=== PATIENT | female | born 1965 | race Caucasian/White ===

== ENCOUNTER 2016-04-01 18:05 | Inpatient (IN) | payer MEDICAID ==
[2016-04-01] MEDS ORDERED: IPRATROPIUM/ALBUTEROL 3 ML DEYVIAL IH ONE (18:13)
[2016-04-01] MEDS ORDERED: methylPREDNISolone SOD SUCC 125 MG/2 ML VIAL IVP ONE (18:13)
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
[2016-04-01] MEDS ORDERED: NS 500 ML IV ONE (19:08)
[2016-04-01 19:14] LABS: % IMMATURE GRANULYOCYTES 0.2 % (0.0-1.1); ABSOLUTE IMMATURE GRANULOCYTES 0.03 10^3/uL (0.00-0.10); ADD DIFF? NO; ADD MORPH? NO; ADD SCAN? NO; ATYPICAL LYMPHOCYTE FLAG 10 (0-99); FRAGMENT RBC FLAG 0 (0-99); HEMATOCRIT 36.6 % (38.0-47.0); HEMOGLOBIN 12.2 g/dL (12.6-16.3); LEFT SHIFT FLG 0 (0-99); LIPEMIA HEMOLYSIS FLAG 80 (0-99); MEAN CELL HEMOGLOBIN 30.4 pg (27.9-34.1); MEAN CELL HEMOGLOBIN CONCENTR. 33.3 g/dL (32.4-36.7); MEAN CELL VOLUME 91.3 fL (81.5-99.8); MEAN PLATELET VOLUME 11.1 fL (8.7-11.7); PLATELET CLUMPS FLAG 0 (0-99); PLATELET COUNT 307 10^3/uL (150-400); RED BLOOD CELL COUNT 4.01 10^6/uL (4.18-5.33); RED CELL DISTRIBUTION WIDTH 13.7 % (11.5-15.2)
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
[2016-04-01 19:19] LABS: ANION GAP 14 mEq/L (8-16); CALCIUM 9.2 mg/dL (8.5-10.4); CARBON DIOXIDE 21 mEq/l (22-31); CHLORIDE 105 mEq/L (97-110); CREATININE 0.5 mg/dL (0.6-1.0); GLOMERULAR FILTRATION RATE > 60; GLUCOSE 92 mg/dL (70-100); POTASSIUM 3.4 mEq/L (3.5-5.2); SODIUM 140 mEq/L (134-144)
[2016-04-01 19:31] LABS: BILIRUBIN,TOTAL 0.4 mg/dL (0.1-1.4)
[2016-04-01] MEDS ORDERED: ACETAMN/DIPHENHYDRAMINE 500/25MG TAB PO PRN (20:23)
[2016-04-01] MEDS ORDERED: CAFFEINE PO PRN (20:23)
[2016-04-01] MEDS ORDERED: ASPIRIN PO PRN (20:23)
[2016-04-01] MEDS ORDERED: ZOLPIDEM TARTRATE 5 MG TAB PO PRN (20:24)
[2016-04-01] MEDS ORDERED: ONDANSETRON 4 MG/2 ML VIAL IVP PRN (20:24)
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
[2016-04-01] MEDS: D5W 1/2 NS W/ 20 KCl/L 1,000 ML IV SCH (21:20)
[2016-04-01] MEDS: clonazePAM 0.5 MG TAB PO PRN (22:01)
[2016-04-01] MEDS: PROMETHAZINE HCL 25 MG/ML INJ IVP PRN (22:21)
[2016-04-01] MEDS: IPRATROPIUM/ALBUTEROL 3 ML DEYVIAL IH SCH (22:25)
[2016-04-02] MEDS: IPRATROPIUM/ALBUTEROL 3 ML DEYVIAL IH SCH ×4 (05:10→21:35)
[2016-04-02] MEDS: ACETAMINOPHEN 325 MG TAB PO PRN ×2 (06:26→21:38)
[2016-04-02] MEDS: clonazePAM 0.5 MG TAB PO PRN ×2 (06:31→19:43)
[2016-04-02] MEDS: predniSONE 20 MG TAB PO SCH (08:02)
[2016-04-02] MEDS: PROMETHAZINE HCL 25 MG/ML INJ IVP PRN ×2 (08:15→19:49)
[2016-04-02] MEDS: D5W 1/2 NS W/ 20 KCl/L 1,000 ML IV SCH (08:18)
[2016-04-02 08:24] LABS: % IMMATURE GRANULYOCYTES 0.6 % (0.0-1.1); ABSOLUTE IMMATURE GRANULOCYTES 0.05 10^3/uL (0.00-0.10); ADD DIFF? NO; ADD MORPH? NO; ADD SCAN? NO; ATYPICAL LYMPHOCYTE FLAG 0 (0-99); FRAGMENT RBC FLAG 0 (0-99); HEMATOCRIT 34.5 % (38.0-47.0); HEMOGLOBIN 11.5 g/dL (12.6-16.3); LEFT SHIFT FLG 10 (0-99); LIPEMIA HEMOLYSIS FLAG 80 (0-99); MEAN CELL HEMOGLOBIN 30.3 pg (27.9-34.1); MEAN CELL HEMOGLOBIN CONCENTR. 33.3 g/dL (32.4-36.7); MEAN CELL VOLUME 90.8 fL (81.5-99.8); MEAN PLATELET VOLUME 10.4 fL (8.7-11.7); PLATELET CLUMPS FLAG 0 (0-99); PLATELET COUNT 276 10^3/uL (150-400); RED CELL DISTRIBUTION WIDTH 13.7 % (11.5-15.2)
[2016-04-02 08:44] LABS: ANION GAP 10 mEq/L (8-16); CARBON DIOXIDE 22 mEq/l (22-31); CHLORIDE 110 mEq/L (97-110); CREATININE 0.4 mg/dL (0.6-1.0); GLOMERULAR FILTRATION RATE > 60; GLUCOSE 181 mg/dL (70-100); POTASSIUM 3.8 mEq/L (3.5-5.2); SODIUM 142 mEq/L (134-144)
[2016-04-02] MEDS: IBUPROFEN 200 MG TAB PO PRN ×2 (12:38→18:40)
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
[2016-04-02] MEDS: METHOCARBAMOL 750 MG TAB PO PRN (16:58)
[2016-04-03] MEDS: METHOCARBAMOL 750 MG TAB PO PRN ×4 (01:28→22:07)
[2016-04-03] MEDS: IPRATROPIUM/ALBUTEROL 3 ML DEYVIAL IH SCH ×4 (05:37→21:52)
[2016-04-03] MEDS: predniSONE 20 MG TAB PO SCH (08:50)
[2016-04-03] MEDS: clonazePAM 0.5 MG TAB PO PRN ×2 (08:50→22:08)
[2016-04-03] MEDS ORDERED: ONDANSETRON DISINTEGRATING 4 MG TAB PO PRN (10:00)
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
[2016-04-03] MEDS: IBUPROFEN 200 MG TAB PO PRN ×2 (11:05→22:07)
[2016-04-03] MEDS: PANTOPRAZOLE SODIUM 40 MG TAB PO SCH (11:12)
[2016-04-03] MEDS: ACETAMINOPHEN 325 MG TAB PO PRN (13:37)
[2016-04-04] MEDS ORDERED: IBUPROFEN 200 MG TAB PO SCH
[2016-04-04] MEDS ORDERED: predniSONE 20 MG TAB PO SCH
[2016-04-04] MEDS ORDERED: METHOCARBAMOL 750 MG TAB PO SCH
[2016-04-04] MEDS ORDERED: ACETAMINOPHEN 325 MG TAB PO SCH
[2016-04-04] MEDS: IPRATROPIUM/ALBUTEROL 3 ML DEYVIAL IH SCH ×2 (05:26→11:05)
[2016-04-04] MEDS: PANTOPRAZOLE SODIUM 40 MG TAB PO SCH (08:29)
[2016-04-04] MEDS: predniSONE 20 MG TAB PO SCH (08:30)
[2016-04-04] MEDS: clonazePAM 0.5 MG TAB PO PRN ×2 (08:30→17:04)
[2016-04-04] MEDS: METHOCARBAMOL 750 MG TAB PO PRN ×2 (08:30→13:11)
[2016-04-04] MEDS: ACETAMINOPHEN 325 MG TAB PO PRN (08:37)
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
[2016-04-04] MEDS: IBUPROFEN 200 MG TAB PO PRN (13:11)
[2016-04-04 14:47] VITALS: RESP 18
[2016-04-04 15:39] VITALS: BP 107/61; PULSE 84; TEMP 98.4
[2016-04-04 16:33] VITALS: O2SAT 92
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
== END 2016-04-04 17:13 | disposition home or self-care (01) | DRG 193 ==
LOC: F3E 20:35
PROVIDERS: ADMIT Internal Medicine; ATTEND Internal Medicine
DX: J18.8 Other pneumonia, unspecified organism (principal); J96.01 Acute respiratory failure with hypoxia; J44.1 Chronic obstructive pulmonary disease with (acute) exacerbation; K21.9 Gastro-esophageal reflux disease without esophagitis; E87.6 Hypokalemia; F17.200 Nicotine dependence, unspecified, uncomplicated; R29.818 Other symptoms and signs involving the nervous system; Z59.0 Homelessness
CPT/HCPCS: 92523-GN; 96365; 97116-GP; 97161-GP; 97165-GO; 97535-GO; J1956; J2550; J7512

== ENCOUNTER 2016-04-06 02:03 | Emergency (ER) | payer MEDICAID ==
[2016-04-06 02:20] VITALS: BP 160/84; PULSE 82; RESP 18; TEMP 98.4; O2SAT 94
[2016-04-06] MEDS ORDERED: OXYCODONE/APAP 5/325 TAB PO ONE (02:20)
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
[2016-04-06] MEDS ORDERED: HYDROCOD/APAP 5/325 PREPACK#6 BTL TAKEHOME ONE (02:46)
== END 2016-04-06 03:08 | disposition home or self-care (01) ==
LOC: EDUNIT#
DX: J20.9 Acute bronchitis, unspecified (principal); J18.9 Pneumonia, unspecified organism; Z79.82 Long term (current) use of aspirin; Z87.891 Personal history of nicotine dependence

== ENCOUNTER 2016-04-07 18:38 | Observation (INO) | payer MEDICAID ==
--- NOTE | 2016-04-07 20:06 | EDPHY ---
H & P Time Seen by Provider: 04/07/16 19:54 HPI/ROS: Chief complaint. Shortness of breath HPI. 42-year-old female recently admitted for bilateral pneumonia on April 01. Negative flu. Start on epic by accepts and because of COPD given IV Solu -Medrol and started on prednisone. She was discharged on April 05 in improved condition. She was seen in the emergency department yesterday because of coughing and pain from her umbilical hernia which was easily reduced. She continues to cough. She has sense of shortness of breath. No fever. Some chest pain with cough. ROS Constitutional. no fever/chills, no weakness Eyes. no problems with vision ENT. no sore throat, no nasal drainage Cardiovascular. Chest pain with cough Respiratory. Shortness of breath and cough Abdominal. Pain from periumbilical hernia . no problems urinating MS. no calf pain/swelling, no neck/back pain, no joint pain Skin. no rash Lymph. no swollen glands Neuro. no headache, no dizziness, no difficulty walking or with speech Past Medical/Surgical History: Past medical history seen for GERD, memory loss, traumatic brain injury, chronic bronchitis, abdominal hernia, COPD, anxiety Social History: Single, no alcohol, former smoker Smoking Status: Former smoker Physical Exam: General Appearance: Alert well-developed female mild distress vital signs stable but significant for initial O2 saturation 88% on room air Eyes: Pupils equal and round no pallor or injection. ENT, Mouth: Mucous membranes are moist. Respiratory: No retractions. Mild bilateral rhonchi. Cardiovascular: Regular rate and rhythm. Gastrointestinal: Abdomen is soft with easily reducible periumbilical hernia. No evidence for incarceration Neurological: Awake and alert, sensory and motor exams grossly normal. Skin: Warm and dry, no rashes. Musculoskeletal: Neck is supple nontender. Extremities symmetrical, full range of motion. Psychiatric: Patient is oriented X 3, there is no agitation. Constitutional: Initial Vital Signs Temperature (C) 36.7 C 04/07/16 18:43 Heart Rate 87 04/07/16 18:43 Respiratory Rate 24 H 04/07/16 18:43 Blood Pressure 137/99 H 04/07/16 18:43 O2 Sat (%) 88 L 04/07/16 18:43 O2 Delivery Mode Room Air O2 (L/minute) 2 Allergies/Adverse Reactions: droperidol [From Inapsine] Allergy (Severe, Verified 04/01/16 20:04) SEIZURES haloperidol [From Haldol] Allergy (Severe, Verified 04/01/16 20:04) SEIZURES haloperidol lactate [From Haldol] Allergy (Severe, Verified 04/01/16 20:04) SEIZURES Home Medications: Medication Instructions Recorded Acetamn/Diphenhydramine 500/25 1 each PO HS PRN 04/01/16 [Tylenol PM (*)] Albuterol [Proventil Neb] 3 ml IH QID PRN 04/01/16 Aspirin/Caffeine [Bc Powder Packet] 1 each PO DAILY PRN 04/01/16 clonazePAM [Klonopin (*)] 0.5 mg PO BID PRN 04/01/16 Acetaminophen [Tylenol 325mg (*)] 650 mg PO Q4HRS PRN #30 tab 04/04/16 Ibuprofen [Motrin (*)] 400 mg PO Q6HRS PRN #30 tab 04/04/16 Methocarbamol [Robaxin 750 mg (*)] 750 mg PO TID PRN #20 tab 04/04/16 levOFLOXACIN [levAQUIN (*)] 750 mg PO DAILY AT 10AM #4 tab 04/04/16 predniSONE 20 mg PO DAILY #6 tablet 04/04/16 Medical Decision Making - Diagnostics EKG Interpretation: EKG interpreted by me shows normal sinus rhythm with normal interval. There is left anterior fascicular block and left axis deviation. QRS is otherwise normal. There is no significant ST elevation or depression. The rate is 84 Imaging: Chest x-ray interpreted by me shows improved bilateral pneumonia Procedures: DuoNeb updraft, oxygen, monitor ED Course/Re-evaluation: On re-evaluation patient feels like she is breathing better however still coughing and somewhat jittery. Patient and I discussed x-ray findings as well as lab findings. We discussed treatment plan and recommendation for admission. She expresses understanding and agreement. The patient lives [facility] and has recently moved to [place] does not have a regular physician or good support system I consulted and discussed patient's case with hospitalist who agrees to the admission Differential Diagnosis: Continuing pneumonia. I considered influenza that she has had negative influenza swab. Patient is hypoxic with bilateral pneumonia. Plan admission - Data Points Laboratory Results: Laboratory Results 04/07/16 19:00 04/07/16 19:00 04/07/16 04/07/16 19:00 19:00 WBC 15.89 10^3/uL H 10^3/uL (3.80-9.50) RBC 4.26 10^6/uL 10^6/uL (4.18-5.33) Hgb 13.3 g/dL g/dL (12.6-16.3) Hct 40.8 % % (38.0-47.0) MCV 95.8 fL fL (81.5-99.8) MCH 31.2 pg pg (27.9-34.1) MCHC 32.6 g/dL g/dL (32.4-36.7) RDW 13.4 % % (11.5-15.2) Plt Count 477 10^3/uL H 10^3/uL (150-400) MPV 10.8 fL fL (8.7-11.7) Neut % (Auto) 77.4 % H % (39.3-74.2) Lymph % (Auto) 18.9 % % (15.0-45.0) [place] % (Auto) 2.8 % L % (4.5-13.0) Eos % (Auto) 0.1 % L % (0.6-7.6) Baso % (Auto) 0.2 % L % (0.3-1.7) Nucleat RBC Rel Count 0.0 % % (0.0-0.2) Absolute Neuts (auto) 12.31 10^3/uL H 10^3/uL (1.70-6.50) Absolute Lymphs (auto) 3.00 10^3/uL 10^3/uL (1.00-3.00) Absolute Monos (auto) 0.44 10^3/uL 10^3/uL (0.30-0.80) Absolute Eos (auto) 0.02 10^3/uL L 10^3/uL (0.03-0.40) Absolute Basos (auto) 0.03 10^3/uL 10^3/uL (0.02-0.10) Absolute Nucleated RBC 0.00 10^3/uL 10^3/uL (0-0.01) Immature Gran % 0.6 % % (0.0-1.1) Immature Gran # 0.09 10^3/uL 10^3/uL (0.00-0.10) Sodium 142 mEq/L mEq/L (134-144) Potassium 4.3 mEq/L mEq/L (3.5-5.2) Chloride 104 mEq/L mEq/L (97-110) Carbon Dioxide 24 mEq/l mEq/l (22-31) Anion Gap 14 mEq/L mEq/L (8-16) BUN 22 mg/dL mg/dL (7-23) Creatinine 0.6 mg/dL mg/dL (0.6-1.0) Estimated GFR > 60 Glucose 101 mg/dL H mg/dL (70-100) Calcium 9.7 mg/dL mg/dL (8.5-10.4) Troponin I < 0.012 ng/mL ng/mL (0-0.034) Medications Given: Discontinued Medications Albuterol/Ipratropium (Duoneb) 3 ml IH EDNOW ONE Stop: 04/07/16 20:11 Last Admin: 04/07/16 20:33 Dose: 3 ml Departure - Departure Disposition: [facility] Inpatient Acute Clinical Impression: Hypoxia Pneumonia Qualifiers: Pneumonia type: due to unspecified organism Laterality: bilateral Lung location : lower lobe of lung Qualified Code(s): J18.9 - Pneumonia, unspecified organism Condition: Fair Referrals: [facility]WO[facility] [Other] - As per Instructions
[2016-04-07] MEDS ORDERED: IPRATROPIUM/ALBUTEROL 3 ML DEYVIAL IH ONE (20:10)
[2016-04-07 20:16] LABS: % IMMATURE GRANULYOCYTES 0.6 % (0.0-1.1); ABSOLUTE IMMATURE GRANULOCYTES 0.09 10^3/uL (0.00-0.10); ADD DIFF? NO; ADD MORPH? NO; ADD SCAN? NO; ATYPICAL LYMPHOCYTE FLAG 10 (0-99); FRAGMENT RBC FLAG 0 (0-99); HEMATOCRIT 40.8 % (38.0-47.0); HEMOGLOBIN 13.3 g/dL (12.6-16.3); LEFT SHIFT FLG 0 (0-99); LIPEMIA HEMOLYSIS FLAG 80 (0-99); MEAN CELL HEMOGLOBIN 31.2 pg (27.9-34.1); MEAN CELL HEMOGLOBIN CONCENTR. 32.6 g/dL (32.4-36.7); MEAN CELL VOLUME 95.8 fL (81.5-99.8); MEAN PLATELET VOLUME 10.8 fL (8.7-11.7); PLATELET CLUMPS FLAG 0 (0-99); PLATELET COUNT 477 10^3/uL (150-400); RED BLOOD CELL COUNT 4.26 10^6/uL (4.18-5.33); RED CELL DISTRIBUTION WIDTH 13.4 % (11.5-15.2)
[2016-04-07 20:24] LABS: ANION GAP 14 mEq/L (8-16); CALCIUM 9.7 mg/dL (8.5-10.4); CARBON DIOXIDE 24 mEq/l (22-31); CHLORIDE 104 mEq/L (97-110); CREATININE 0.6 mg/dL (0.6-1.0); GLOMERULAR FILTRATION RATE > 60; GLUCOSE 101 mg/dL (70-100); POTASSIUM 4.3 mEq/L (3.5-5.2); SODIUM 142 mEq/L (134-144)
[2016-04-07 20:35] LABS: TROPONIN I < 0.012 ng/mL (0-0.034)
--- NOTE | 2016-04-07 20:38 | CPEKG ---
Heart Rate: 84 RR Interval: 714 P-R Interval: 172 QRSD Interval: 92 QT Interval: 400 QTC Interval: 473 P [place]: -14 QRS [place]: -46 T Wave [place]: 4 EKG Severity - ABNORMAL ECG - EKG Impression: SINUS RHYTHM EKG Impression: LEFT ANTERIOR FASCICULAR BLOCK EKG Impression: BORDERLINE R WAVE PROGRESSION, ANTERIOR LEADS Electronically Signed By: Amaury Mcadams 07-Apr-2016 22:25:41
[2016-04-07] MEDS ORDERED: ACETAMINOPHEN 325 MG TAB PO PRN (22:38)
[2016-04-07] MEDS ORDERED: ONDANSETRON 4 MG/2 ML VIAL IVP PRN (22:38)
[2016-04-07] MEDS ORDERED: ONDANSETRON DISINTEGRATING 4 MG TAB PO PRN (22:38)
[2016-04-07] MEDS ORDERED: IPRATROPIUM/ALBUTEROL 3 ML DEYVIAL IH PRN (22:41)
[2016-04-07] MEDS ORDERED: TEMAZEPAM 15 MG CAP PO PRN (22:42)
--- NOTE | 2016-04-07 23:03 | PDGENHP ---
History and Physical - Chief Complaint cough - History of Present Illness Patient is a 50-year old female with COPD/chronic bronchitis, h/o TBI, anxiety disorder and GERD who presents to the ED with complaint of cough, shortness of breath and pleuritic chest pain. Patient was recently admitted (04/01-04/05) for COPD exacerbation and community acquired pneumonia, reports compliance with her discharge medications which included levofloxacin and prednisone. Despite this compliance, patient reports continued cough and dyspnea and now also describes a left-sided chest pain, pleuritic in nature. She states she can only walk steps before having to stop due to shortness of breath. Denies any recurrent fevers/chills. She came to the ED for her continued symptoms on 04/06, was given Percocet for her pleuritic pain and discharged back to her senior care. She presents again today with persistent symptoms. Denies any palpitations, headache , dizziness, nausea,vomiting, diarrhea or dysuria. On arrival to the ED, patient was afebrile and hemodynamcally stable, although slightly hypoxic on room air. CXR revealed persistent bilateral interstitial infiltrates. Labs also revealed new leukocytosis, negative troponin. EKG was unremarkable. She was given nebs and admitted to the hospitalist service for further management. History Information - Allergies/Home Medication List Allergies/Adverse Reactions: droperidol [From Inapsine] Allergy (Severe, Verified 04/01/16 20:04) SEIZURES haloperidol [From Haldol] Allergy (Severe, Verified 04/01/16 20:04) SEIZURES haloperidol lactate [From Haldol] Allergy (Severe, Verified 04/01/16 20:04) SEIZURES Home Medications: Acetamn/Diphenhydramine 500/25 [Tylenol PM (*)] 1 each PO HS PRN 04/01/16 [Last Taken Unknown] Albuterol [Proventil Neb] 3 ml IH QID PRN 04/01/16 [Last Taken 04/07/16] Aspirin/Caffeine [Bc Powder Packet] 1 each PO DAILY PRN 04/01/16 [Last Taken ] Albuterol [Proventil Inhaler HFA (*)] 1 - 2 puffs IH Q4H PRN 04/07/16 [Last Taken 04/07/16] I have personally reviewed and updated: family history, medical history, social history, surgical history - Past Medical History Additional medical history: COPD. GERD/hiatal hernia. 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 anxiety disorder - Surgical History Additional surgical history: partial hysterectomy. cholecystectomy. lipoma resection - Family History Positive for: non-pertinent - Social History Smoking Status: Former smoker (reports she quit after recent hospitalization; formerly 1/2-1PPD x 15 years) Alcohol Use: None Drug Use: None Additional social history: Patient is originally from [place], left there in February and has been homeless/travelling since that time. She has remained in the [facility] area since end of Feb/early March, now resides in [facility]. She reports having siblings and children in the [place] area. Review of Systems ROS: 10pt was reviewed & negative except for what was stated in HPI & below Physical Exam Temp Pulse Resp BP Pulse Ox 36.6 C 75 20 123/78 H 98 04/07/16 21:47 04/07/16 21:56 04/07/16 21:56 04/07/16 21:56 04/07/16 21:56 O2 (L/minute) 2 Constitutional: no apparent distress, appears nourished, not in pain, obese Eyes: PERRL, anicteric sclera, EOMI Ears, Nose, Mouth, Throat: moist mucous membranes, hearing normal, ears appear normal, no oral mucosal ulcers Cardiovascular: regular rate and rhythym, no murmur, rub, or gallop, pulses symmetric bilaterally, No JVD, No edema Peripheral Pulses: 2+: dorsalis-pedis (R), dorsalis-pedis (L) Respiratory: no respiratory distress, no rales or rhonchi, expiratory wheeze ( faint diffuse expiratory wheezing) Gastrointestinal: normoactive bowel sounds, soft, non-tender abdomen, no palpable masses, No guarding, No rebound Genitourinary: no bladder fullness, no bladder tenderness Skin: warm, normal color, no rashes or abrasions, no fluctuance, no induration, No mottled Musculoskeletal: full muscle strength, no muscle tenderness, normal joint ROM, no joint effusions Neurologic: AAOx3, sensation intact bilaterally, CN II-XII Intact, No weakness, No numbness Psychiatric: not encephalopathic, thought process linear, anxious Lab Data & Imaging Review 04/07/16 19:00 04/07/16 19:00 WBC 15.89 10^3/uL (3.80-9.50) H 04/07/16 19:00 RBC 4.26 10^6/uL (4.18-5.33) 04/07/16 19:00 Hgb 13.3 g/dL (12.6-16.3) 04/07/16 19:00 Hct 40.8 % (38.0-47.0) 04/07/16 19:00 MCV 95.8 fL (81.5-99.8) 04/07/16 19:00 MCH 31.2 pg (27.9-34.1) 04/07/16 19:00 MCHC 32.6 g/dL (32.4-36.7) 04/07/16 19:00 RDW 13.4 % (11.5-15.2) 04/07/16 19:00 Plt Count 477 10^3/uL (150-400) H 04/07/16 19:00 MPV 10.8 fL (8.7-11.7) 04/07/16 19:00 Neut % (Auto) 77.4 % (39.3-74.2) H 04/07/16 19:00 Lymph % (Auto) 18.9 % (15.0-45.0) 04/07/16 19:00 [place] % (Auto) 2.8 % (4.5-13.0) L 04/07/16 19:00 Eos % (Auto) 0.1 % (0.6-7.6) L 04/07/16 19:00 Baso % (Auto) 0.2 % (0.3-1.7) L 04/07/16 19:00 Nucleat RBC Rel Count 0.0 % (0.0-0.2) 04/07/16 19:00 Absolute Neuts (auto) 12.31 10^3/uL (1.70-6.50) H 04/07/16 19:00 Absolute Lymphs (auto) 3.00 10^3/uL (1.00-3.00) 04/07/16 19:00 Absolute Monos (auto) 0.44 10^3/uL (0.30-0.80) 04/07/16 19:00 Absolute Eos (auto) 0.02 10^3/uL (0.03-0.40) L 04/07/16 19:00 Absolute Basos (auto) 0.03 10^3/uL (0.02-0.10) 04/07/16 19:00 Absolute Nucleated RBC 0.00 10^3/uL (0-0.01) 04/07/16 19:00 Immature Gran % 0.6 % (0.0-1.1) 04/07/16 19:00 Immature Gran # 0.09 10^3/uL (0.00-0.10) 04/07/16 19:00 Sodium 142 mEq/L (134-144) 04/07/16 19:00 Potassium 4.3 mEq/L (3.5-5.2) 04/07/16 19:00 Chloride 104 mEq/L (97-110) 04/07/16 19:00 Carbon Dioxide 24 mEq/l (22-31) 04/07/16 19:00 Anion Gap 14 mEq/L (8-16) 04/07/16 19:00 BUN 22 mg/dL (7-23) 04/07/16 19:00 Creatinine 0.6 mg/dL (0.6-1.0) 04/07/16 19:00 Estimated GFR > 60 04/07/16 19:00 Glucose 101 mg/dL (70-100) H 04/07/16 19:00 Calcium 9.7 mg/dL (8.5-10.4) 04/07/16 19:00 Troponin I < 0.012 ng/mL (0-0.034) 04/07/16 19:00 Visualized and Interpreted Chest x-ray results: Yes Chest X-Ray results: other (b/l interstitial infiltrates, unchanged from prior cxr) Visualized and Interpreted EKG results: Yes EKG Interpretation: Positive for: normal sinsus rhythm (poor R wave progression) Assessment & Plan Assessment: Patient is a [id number]-female with chronic bronchitis, anxiety disorder, GERD and recent admission for community acquired pneumonia who presents to the ED with persistent cough and pleuritic chest pain despite compliance with outpatient antibiotic and steroids. ED evaluation reveals mild hypoxia and new leukocytosis, with persistent infiltrates on CXR. Plan: # acute hypoxic respiratory failure, COPD Likely due to persistent community acquired pneumonia and exacerbation of her chronic bronchitis/COPD. She denies a history of chronic respiratory failure. Given recent hospitalization and tachycardia, tachypenia present on presentation , must also consider pulmonary embolism, cardiomyopathy. Will check d-dimer and TTE. Will also switch antibiotics, continue nebs and prednisone. # leukocytosis, thrombocytosis Could be reactive in setting of continued outpatient prednisone, however, could also be failure of levaquin treatment. Patient continues to report cough, shortness of breath, and CXR shows persistent bilateral infiltrates, although not significantly worsened. Will switch abx to ceftriaxone and azithromycin. And will also check UA. # chest pain Patient describes left-sided chest pain, appears to be sharp and pleuritic in nature. Initial troponin and EKG are unremarkable, low suspicion for cardiac etiology. PE is possibility, will check d-dimer and also r/o ACS with serial cardiac enzymes, EKG. # anxiety disorder Stable. Patient reports being prescribed clonazepam in the past occasionally for sleep, will cont this prn. # h/o traumatic brain injury with peripheral neuropathy Stable. Can add Robaxin if needed. # GERD Stable. # dispo: admit to [facility] for acute hypoxic respiratory failure management # gen: Regular diet Full code
[2016-04-07] MEDS: HYDROCODONE/APAP 5/325 TAB PO PRN (23:08)
[2016-04-07] MEDS: AZITHROMYCIN 250 MG TAB PO SCH (23:44)
[2016-04-07] MEDS: KETOROLAC 30 MG/1 ML SDV IVP PRN (23:44)
[2016-04-07] MEDS: clonazePAM 0.5 MG TAB PO PRN (23:44)
[2016-04-08 06:37] LABS: % IMMATURE GRANULYOCYTES 0.5 % (0.0-1.1); ABSOLUTE IMMATURE GRANULOCYTES 0.05 10^3/uL (0.00-0.10); ADD DIFF? NO; ADD MORPH? NO; ADD SCAN? NO; ATYPICAL LYMPHOCYTE FLAG 10 (0-99); FRAGMENT RBC FLAG 0 (0-99); HEMATOCRIT 32.7 % (38.0-47.0); HEMOGLOBIN 10.8 g/dL (12.6-16.3); LEFT SHIFT FLG 0 (0-99); LIPEMIA HEMOLYSIS FLAG 80 (0-99); MEAN CELL HEMOGLOBIN 31.2 pg (27.9-34.1); MEAN CELL VOLUME 94.5 fL (81.5-99.8); MEAN PLATELET VOLUME 9.7 fL (8.7-11.7); PLATELET CLUMPS FLAG 0 (0-99); PLATELET COUNT 323 10^3/uL (150-400); RED BLOOD CELL COUNT 3.46 10^6/uL (4.18-5.33); RED CELL DISTRIBUTION WIDTH 13.5 % (11.5-15.2)
[2016-04-08] MEDS: HYDROCODONE/APAP 5/325 TAB PO PRN (06:51)
[2016-04-08] MEDS: KETOROLAC 30 MG/1 ML SDV IVP PRN (06:52)
[2016-04-08 07:40] LABS: ANION GAP 9 mEq/L (8-16); CALCIUM 8.7 mg/dL (8.5-10.4); CARBON DIOXIDE 25 mEq/l (22-31); CHLORIDE 107 mEq/L (97-110); CREATININE 0.5 mg/dL (0.6-1.0); GLOMERULAR FILTRATION RATE > 60; GLUCOSE 89 mg/dL (70-100); POTASSIUM 3.8 mEq/L (3.5-5.2); SODIUM 141 mEq/L (134-144)
[2016-04-08 07:46] LABS: TROPONIN I 0.014 ng/mL (0-0.034)
[2016-04-08] MEDS: clonazePAM 0.5 MG TAB PO PRN (08:01)
[2016-04-08] MEDS: AZITHROMYCIN 250 MG TAB PO SCH (08:01)
[2016-04-08] MEDS ORDERED: predniSONE 20 MG TAB PO SCH (09:00)
--- NOTE | 2016-04-08 09:09 | CPEKG ---
Heart Rate: 76 RR Interval: 789 P-R Interval: 176 QRSD Interval: 100 QT Interval: 388 QTC Interval: 437 P [place]: 19 QRS [place]: -59 T Wave [place]: 20 EKG Severity - ABNORMAL ECG - EKG Impression: SINUS RHYTHM EKG Impression: LAD, CONSIDER LEFT ANTERIOR FASCICULAR BLOCK EKG Impression: LOW VOLTAGE THROUGHOUT Electronically Signed By: Roberto Pena 08-Apr-2016 13:26:23
--- NOTE | 2016-04-08 12:27 | ECHO ---
[id number] + + [address] : : [place] [address] : : [phone] + + Adult Echocardiographic Report + -----+ :Name: IAN FARAHHerman Date: 04/08/2016 09:33 AM : : Hospital Admission Number: [id number] Location : 142: :: 1965 Gender: Female Height: 62 in : :Age: 50 yrs Race: WH Weight: 164 lb : :Reason For Study: Hypoxia with b/l infiltrates, possibly : :pulmonary edema, r/o cardiomyopathy BSA: 1.8 meters2 : :History: No previous : + -----+ MMode/2D Measurements \T\ Calculations IVSd: 1.3 cm LVIDd: 3.7 cm FS: 34.8 % LVOT diam: 2.1 cm LVPWd: 1.0 cm LVIDs: 2.4 cm EDV(Teich): 56.3 ml ESV(Teich): 19.7 ml LVOT area: 3.5 cm2 EF(Teich): 64.9 % Normal Measurement Values: + + :LVIDd (3.5-5.7cm) IVSd (0.6-1.1cm) LVPWd (0.6-1.1cm) Aortic Root (2.0-3.7cm)Left Atrium (1.5-4.0cm): :LV Vol(d) (76-115ml) LV Vol(s) (29-48ml) Ejec Fraction (50-65%)PV John (0.6- 1.2m/s) TV John (0.4-1.0m/s) : :MV E John (0.8-1.0m/s)MV A John (0.3-1.0m/s)LVOT John (0.7-1.2m/s) Asc Ao John ( 0.9-1.8m/s) : + + Doppler Measurements \T\ Calculations MV E max john: MV V2 max: Ao V2 max: LV V1 max: 66.1 cm/sec 90.4 cm/sec 152.0 cm/sec 97.0 cm/sec MV A max john: MV max PG: Ao max P.2 mmHg LV V1 max P.5 cm/sec 3.3 mmHg Ao mean P.8 mmHg MV E/A: 0.89 MV V2 mean: 5.0 mmHg LV V1 mean PG: MV dec time: 64.5 cm/sec Ao V2 mean: 2.0 mmHg 0.20 sec MV mean P.0 cm/sec LV V1 mean: 2.0 mmHg Ao V2 VTI: 31.2 cm 67.8 cm/sec MV V2 VTI: 23.8 cmAVA(I,D): 2.1 cm2 LV V1 VTI: 19.1 cm MVA(VTI): 2.8 cm2 DONOVAN(V,D): 2.2 cm2 SV(LVOT): 66.2 ml PA V2 max: TR max john: 130.5 cm/sec 222.0 cm/sec PA max PG: TR max P.8 mmHg 19.7 mmHg Left Ventricle The left ventricle is normal in size and function. There is mild concentric left ventricular hypertrophy. Ejection Fraction = 65%. Right Ventricle The right ventricle is mildly dilated. Atria The left atrial size is normal. Right atrium not well visualized. Mitral Valve The mitral valve is normal in structure and function. There is no mitral valve stenosis. There is trace mitral regurgitation. Tricuspid Valve The tricuspid valve is normal in structure and function. There is no tricuspid stenosis. There is mild tricuspid regurgitation. Aortic Valve The aortic valve is normal in structure and function. There is no aortic stenosis. There is no aortic insufficiency. Pulmonic Valve The pulmonic valve is normal in structure and function. There is no pulmonic valvular stenosis. There is no pulmonic valvular regurgitation. Great Vessels The aortic root is normal size. Pericardium/Pleural There is a fat pad seen. There is no pericardial effusion. Conclusion A complete two-dimensional transthoracic echocardiogram was performed (2D, M-mode, Doppler and color flow Doppler). The study was technically difficult. The study was technically limited. Limited windows due to hernia. The left ventricle is normal in size and function. Mild concentric left ventricular hypertrophy. Ejection Fraction = 65%. Trace mitral regurgitation, mild tricuspid regurgitation. Final Reading Physician: Mihaela Lopez signed on 04/08/2016 12:25 PM Ordering Physician: Murphy Murphy Performed By: Heather Gonzales
[2016-04-08 13:39] VITALS: BP 100/78; PULSE 70; RESP 17; TEMP 97.4; O2SAT 91
--- NOTE | 2016-04-08 17:32 | GDS ---
[f rep st] DISCHARGE SUMMARY DISCHARGE DIAGNOSES: 1. Atypical chest pain. 2. Acute hypoxic respiratory failure. 3. Chronic obstructive pulmonary disease. 4. Leukocytosis. 5. Anxiety disorder. HISTORY OF PRESENT ILLNESS: Patient is a 50-year-old female with history of COPD/chronic bronchitis , and history of TBI, who presented to the emergency room with complaints of cough, shortness of kelly ath, and pleuritic chest pain. She was recently admitted to 04/01 through 04/05 for COPD exacerbati on and community-acquired pneumonia. She states compliance with her discharge medications that incl uded levofloxacin and prednisone. Despite compliance, she reports continued cough and dyspnea, and describes a left-sided chest pain. This pain can be sharp with her cough. She has no radiation, as sociated diaphoresis, nausea, or shortness of breath. She gets similar pain when she has anxiety at tacks. She denies any recurrent fevers or chills. She denies any headache, dizziness, nausea, vomi ting, or diarrhea. In the emergency room, she was afebrile and hemodynamically stable. Slightly hypoxic on room air. Chest x-ray revealed persistent bilateral interstitial infiltrates. HOSPITAL COURSE BY PROBLEM: 1. Acute hypoxic respiratory failure: This is multifactorial given underlying COPD/chronic bronchi tis and recent community-acquired pneumonia. Patient has been stable here, 91% on room air. She gil s been afebrile. She completed a total of 5 days of Levaquin and prednisone as of today, including her outpatient medications. TTE was done, which was negative for wall motion abnormalities. Low butler spicion for pulmonary embolism. Given the reproducibility of the pain, and that it is associated wi th her cough, as of recent, I provided the patient with cough suppressants. Complicating the issue is that the patient is homeless, and does not want to stay in a skilled nursing, as she feels that she canno t rest there. I explained to her that she is hemodynamically stable, not requiring oxygen, and has completed her course of medications. 2. Atypical chest pain: Stated above, likely secondary to her cough. EKG and troponin were unrema rkable. There was no evidence of wall motion abnormality on echocardiogram. There was reproducible pain, and she also associates this with her anxiety attacks. 3. Anxiety: The patient was requesting Klonopin. I explained that she needs to follow up with her regular doctor, as I was not going to provide her with a new script for this. 4. Leukocytosis: This is resolved, likely secondary to steroid. Patient was afebrile. 5. Homelessness: The patient just moved here from [place]. She has seen case management at her last hospitalization and declined further assistance. She has a list of shelters. DISPOSITION: Patient is stable for discharge. MEDICATIONS: New medications : Tessalon Perles. FOLLOWUP: Patient was advised to follow up with [facility]. /[id number]
== END 2016-04-08 14:18 | disposition home or self-care (01) ==
LOC: EDUNIT# → F1N 22:01
PROVIDERS: ADMIT Internal Medicine; ATTEND Internal Medicine
DX: J18.9 Pneumonia, unspecified organism (principal); J96.01 Acute respiratory failure with hypoxia; R07.89 Other chest pain; J44.9 Chronic obstructive pulmonary disease, unspecified; D72.829 Elevated white blood cell count, unspecified; F41.9 Anxiety disorder, unspecified; G62.9 Polyneuropathy, unspecified; K21.9 Gastro-esophageal reflux disease without esophagitis; Z59.0 Homelessness; Z87.820 Personal history of traumatic brain injury; Z87.891 Personal history of nicotine dependence
CPT/HCPCS: 71020; 93005; 93306; G0378; J0696; J1885

== ENCOUNTER 2016-04-10 05:04 | Emergency (ER) | payer MEDICAID ==
[2016-04-10] MEDS ORDERED: BENZONATATE 100 MG CAP PO ONE (05:27)
[2016-04-10 05:35] LABS: % IMMATURE GRANULYOCYTES 0.5 % (0.0-1.1); ABSOLUTE IMMATURE GRANULOCYTES 0.04 10^3/uL (0.00-0.10); ADD DIFF? NO; ADD MORPH? NO; ADD SCAN? NO; ATYPICAL LYMPHOCYTE FLAG 10 (0-99); FRAGMENT RBC FLAG 0 (0-99); HEMATOCRIT 38.9 % (38.0-47.0); HEMOGLOBIN 12.4 g/dL (12.6-16.3); LEFT SHIFT FLG 0 (0-99); LIPEMIA HEMOLYSIS FLAG 80 (0-99); MEAN CELL HEMOGLOBIN CONCENTR. 31.9 g/dL (32.4-36.7); MEAN CELL VOLUME 94.2 fL (81.5-99.8); MEAN PLATELET VOLUME 9.6 fL (8.7-11.7); PLATELET CLUMPS FLAG 20 (0-99); PLATELET COUNT 438 10^3/uL (150-400); RED BLOOD CELL COUNT 4.13 10^6/uL (4.18-5.33); RED CELL DISTRIBUTION WIDTH 13.5 % (11.5-15.2)
[2016-04-10 05:49] LABS: ANION GAP 8 mEq/L (8-16); CARBON DIOXIDE 28 mEq/l (22-31); CHLORIDE 105 mEq/L (97-110); CREATININE 0.5 mg/dL (0.6-1.0); GLOMERULAR FILTRATION RATE > 60; GLUCOSE 87 mg/dL (70-100); POTASSIUM 4.7 mEq/L (3.5-5.2); SODIUM 141 mEq/L (134-144)
[2016-04-10] MEDS ORDERED: OXYCODONE/APAP 5/325 TAB PO ONE (06:20)
[2016-04-10] MEDS ORDERED: predniSONE 20 MG TAB PO ONE (06:21)
[2016-04-10] MEDS ORDERED: OXYCODONE/APAP 5/325 TAB ONE (06:34)
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
[2016-04-10 07:07] VITALS: RESP 18
[2016-04-10] MEDS ORDERED: HYDROCOD/APAP 5/325 PREPACK#6 BTL TAKEHOME ONE (07:17)
[2016-04-10] MEDS ORDERED: DOXYCYCLINE 100 MG PREPACK#2 BTL TAKEHOME ONE (07:18)
[2016-04-10] MEDS ORDERED: DOXYCYCLINE HYCLATE 100 MG CAP/TAB PO ONE (07:18)
[2016-04-10 07:46] VITALS: BP 133/88; PULSE 78; TEMP 98.2; O2SAT 94
== END 2016-04-10 07:46 | disposition home or self-care (01) ==
LOC: EDUNIT#
DX: J44.1 Chronic obstructive pulmonary disease with (acute) exacerbation (principal); Z87.891 Personal history of nicotine dependence; Z79.82 Long term (current) use of aspirin

== ENCOUNTER 2016-05-07 08:58 | Inpatient (IN) | payer MEDICAID ==
[2016-05-07] MEDS ORDERED: IPRATROPIUM/ALBUTEROL 3 ML DEYVIAL IH ONE (09:03)
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
[2016-05-07 09:25] LABS: % IMMATURE GRANULYOCYTES 0.2 % (0.0-1.1); ABSOLUTE IMMATURE GRANULOCYTES 0.02 10^3/uL (0.00-0.10); ADD DIFF? NO; ADD MORPH? NO; ADD SCAN? NO; ATYPICAL LYMPHOCYTE FLAG 40 (0-99); FRAGMENT RBC FLAG 0 (0-99); HEMATOCRIT 39.2 % (38.0-47.0); HEMOGLOBIN 13.2 g/dL (12.6-16.3); LEFT SHIFT FLG 0 (0-99); LIPEMIA HEMOLYSIS FLAG 80 (0-99); MEAN CELL HEMOGLOBIN 30.3 pg (27.9-34.1); MEAN CELL HEMOGLOBIN CONCENTR. 33.7 g/dL (32.4-36.7); MEAN CELL VOLUME 90.1 fL (81.5-99.8); MEAN PLATELET VOLUME 10.3 fL (8.7-11.7); PLATELET CLUMPS FLAG 20 (0-99); PLATELET COUNT 346 10^3/uL (150-400); RED BLOOD CELL COUNT 4.35 10^6/uL (4.18-5.33); RED CELL DISTRIBUTION WIDTH 12.8 % (11.5-15.2)
[2016-05-07 09:35] LABS: INR 1.13 (0.83-1.16); PROTIME(PATIENT) 14.4 SEC (12.0-15.0)
[2016-05-07 09:36] LABS: ANION GAP 12 mEq/L (8-16); APTT 34.8 SEC (23.0-38.0); BILIRUBIN,TOTAL 0.6 mg/dL (0.1-1.4); CARBON DIOXIDE 25 mEq/l (22-31); CHLORIDE 101 mEq/L (97-110); CREATININE 0.6 mg/dL (0.6-1.0); GLOMERULAR FILTRATION RATE > 60; GLUCOSE 93 mg/dL (70-100); POTASSIUM 3.6 mEq/L (3.5-5.2); SODIUM 138 mEq/L (134-144)
[2016-05-07] MEDS ORDERED: IBUPROFEN 600 MG TAB PO ONE ×2 (10:48→10:50)
[2016-05-07] MEDS ORDERED: BENZONATATE 200 MG PO PRN (11:09)
[2016-05-07] MEDS ORDERED: ALBUTEROL 60 PUFFS/8 GM MDI IH PRN (11:09)
[2016-05-07] MEDS ORDERED: IPRATROPIUM BROMIDE 0.5 MG/2.5 ML DEYVIAL IH SCH (12:00)
[2016-05-07] MEDS ORDERED: ALBUTEROL 3 ML DEYVIAL IH SCH (12:00)
[2016-05-07] MEDS ORDERED: ONDANSETRON DISINTEGRATING 4 MG TAB PO PRN (13:45)
[2016-05-07] MEDS ORDERED: ONDANSETRON 4 MG/2 ML VIAL IVP PRN (13:45)
[2016-05-07] MEDS ORDERED: IBUPROFEN 200 MG TAB PO PRN (13:45)
[2016-05-07] MEDS: traMADol 50 MG TAB PO PRN ×2 (14:52→19:47)
[2016-05-07] MEDS: NICOTINE 14 MG/24 HR PATCH TD SCH ×2 (14:52→14:54)
[2016-05-07] MEDS: METHOCARBAMOL 500 MG TAB PO SCH ×2 (14:52→22:00)
[2016-05-07] MEDS: hydrOXYzine HCL 25 MG TAB PO SCH ×2 (14:53→20:30)
--- NOTE | 2016-05-07 15:10 | GHP ---
[f rep st] HISTORY AND PHYSICAL DATE OF ADMISSION: 05/07/2016 CHIEF COMPLAINT: Shortness of breath. HISTORY OF PRESENT ILLNESS: The patient is a 51-year-old female with a history of COPD, bronchitis, traumatic brain injury, and anxiety, who presented to the emergency room with shortness of breath. She was going to try and take a bus from the homeless custodial here but that she was feeling so poorly that she called the EMS to be transported to the hospital. This is her 3rd visit since April 01 for similar symptoms. She had a temperature last night of 103. She has a sore throat with frequent coughing episodes. She has a productive cough with yellow sputum. She has never quite felt like she improved since her last discharge. She also describes feeling extremely exhausted and has associated chills. She denies any chest pain. She denies any gastrointestinal symptoms. She denies any type of headache. Her appetite has been poor. She was checked for the influenza which was negative. PAST MEDICAL HISTORY: 1. COPD. 2. Bronchitis. 3. Total brain injury in 2001. 4. GERD. 5. Anxiety disorder. 6. Chronic lower extremity leg edema. PAST SURGICAL HISTORY: 1. Cholecystectomy. 2. Lipoma resection. 3. Partial hysterectomy. SOCIAL HISTORY: She started smoking again. She describes it as a little bit and does not state how much she is smoking. She does not drink alcohol. She is currently not in a relationship. She is originally from [place]. Her siblings and children live in the [place] area. When I asked her why she moved to [place], she said after her mom she was having increased stress and anxiety and decided to get away from the issues of her family. FAMILY HISTORY: Her mom had dementia. She is unclear what she from but she at age 72. Her father at age 52. He had lung issues/emphysema. ALLERGIES: Droperidol, haloperidol, and haloperidol lactate. MEDICATIONS: Vitamin D 1000 units daily, Robaxin 500 mg p.o. t.i.d., Atrovent nebulizer 0.5 mg inhalation q.i.d., vitamin C 500 mg p.o. b.i.d., hydroxyzine 25 mg p.o. q.8 hours, Lidoderm patches 0.5% topical daily, ibuprofen 600 mg q.8 hours, Tessalon Perles 200 mg t.i.d. p.r.n., albuterol nebulizer 3 mL inhalation q.i.d., and albuterol inhaler 1-2 puffs inhalation q.4 hours as needed. REVIEW OF SYSTEMS: A 10-point review of systems was performed and was negative other than pertinent positives in the HPI and past medical history. PHYSICAL EXAM: GENERAL: The patient is a 51-year-old female who does not appear to be in any acute distress. VITAL SIGNS: Blood pressure is 114/72. Heart rate is 82. , Respiratory rate is 20. O2 sats on 0.5 L are 97%. Temperature is 37.1 Celsius. HEENT: Eyes: Pupils are equal and reactive. EOMs are intact. No conjunctival injection noted. ENT: Normal ears. Hearing intact. Her front teeth are missing. Her oral airway is moist. NECK: Trachea is midline. CARDIOVASCULAR: She is in a regular rate and rhythm. No murmur, rub, or gallops noted. No JVD. No edema. PERIPHERAL PULSES: She has 2+ DP and PT pulses. RESPIRATORY: She has normal respiratory effort. She has a few scattered wheezes without rales or rhonchi. Diminished bibasilar. ABDOMEN: Soft and nontender. SKIN: No rashes or ulcer noted. MUSCULOSKELETAL : She has equal upper and lower extremity strength. PSYCHIATRIC: She is alert and oriented. She is not encephalopathic. Thought process is linear. She is anxious. LABORATORY FINDINGS: Data reviewed. A CBC was performed, which showed a white blood cell count of 12.01, hemoglobin 13.2, hematocrit of 39.2, platelet count of 346. Venous lactic acid is 0.8. Chemistry panel: Sodium is 138, potassium 3.6, chloride of 101, BUN of 8, creatinine 0.6, glucose of 93. She is negative for the influenza. A chest x-ray was performed and showed interval increase in bilateral diffuse interstitial infiltrates. I reviewed her care with Dr. John Seo, emergency room physician. ASSESSMENT/PLAN: 1. Sepsis, likely due to pneumonia. She has a low-grade fever and elevated white blood cell count and was tachypneic while in the emergency room. She has been well hydrated and has improved already. Lactate is stable. 2. Community-acquired pneumonia. Will place her on Levaquin as started in the emergency room. Will follow up with blood cultures. 3. Chronic bronchitis. This is likely secondary to chronic obstructive pulmonary disease. It does not appear that she has an acute exacerbation. Will hold off on steroids at this time since we are treating her for pneumonia and see if she improves. Will order medications for her cough. Duonebs are ordered. 4. Left knee pain. Will ask physical therapy and occupational therapy to work with her. 5. Nicotine dependence. Nicotine patch has been offered. 6. Anxiety. I suspect this is why she comes to the emergency room frequently. Will ask case management to get involved. 7. Homelessness, overall impacting her health. She spends her days at resource centers or the park. 8. DVT prophylaxis. She is at moderate risk. For now, will hold low-molecular -weight heparin. If she needs to stay another midnight stay, this can be initiated. For now, we will have her ambulate and provide knee-high CHERYL hose. 9. Code status: Full. 10. Length of stay: I expect that she will require less than a 2-midnight stay , which will make her observation status. This can be reevaluated if needed. /[id number]/MODL MTDD
[2016-05-07 15:33] LABS: COLOR YELLOW; LEUKOCYTE ESTERASE,URINE NEGATIVE (NEGATIVE); NITRITE,URINE NEGATIVE (NEGATIVE)
[2016-05-07 15:39] LABS: MUCUS TRACE /lpf (NONE-1+)
[2016-05-07] MEDS: IPRATROPIUM/ALBUTEROL 3 ML DEYVIAL IH SCH ×2 (16:07→21:02)
[2016-05-07] MEDS: LIDOCAINE 5% 1 EA PATCH TD SCH (16:47)
[2016-05-07] MEDS: BENZONATATE 100 MG CAP PO PRN ×2 (18:03→22:00)
[2016-05-07] MEDS: guaiFENesin 600 MG TAB.ER PO SCH (19:46)
[2016-05-07] MEDS: ASCORBIC ACID 500 MG TAB PO SCH (19:47)
[2016-05-07] MEDS: IBUPROFEN 600 MG TAB PO PRN (22:00)
[2016-05-07] MEDS: DIAZEPAM 5 MG TAB PO PRN (22:00)
[2016-05-08] MEDS: PATCH REMOVAL 1 EA PATCH TD SCH ×2 (05:03→20:33)
[2016-05-08 05:08] LABS: % IMMATURE GRANULYOCYTES 0.4 % (0.0-1.1); ABSOLUTE IMMATURE GRANULOCYTES 0.05 10^3/uL (0.00-0.10); ADD DIFF? NO; ADD MORPH? NO; ADD SCAN? NO; ATYPICAL LYMPHOCYTE FLAG 60 (0-99); FRAGMENT RBC FLAG 0 (0-99); HEMATOCRIT 35.4 % (38.0-47.0); HEMOGLOBIN 11.7 g/dL (12.6-16.3); LEFT SHIFT FLG 10 (0-99); LIPEMIA HEMOLYSIS FLAG 80 (0-99); MEAN CELL HEMOGLOBIN 29.6 pg (27.9-34.1); MEAN CELL HEMOGLOBIN CONCENTR. 33.1 g/dL (32.4-36.7); MEAN CELL VOLUME 89.6 fL (81.5-99.8); MEAN PLATELET VOLUME 10.4 fL (8.7-11.7); PLATELET CLUMPS FLAG 0 (0-99); PLATELET COUNT 327 10^3/uL (150-400); RED BLOOD CELL COUNT 3.95 10^6/uL (4.18-5.33); RED CELL DISTRIBUTION WIDTH 12.8 % (11.5-15.2)
[2016-05-08 05:23] LABS: ALANINE AMINOTRANSFERASE 43 IU/L (9-52); ALBUMIN 3.5 g/dL (3.5-5.0); ALKALINE PHOSPHATASE 103 IU/L (38-126); ANION GAP 13 mEq/L (8-16); ASPARTATE AMINOTRANSFERASE 32 IU/L (14-46); BILIRUBIN,TOTAL 0.3 mg/dL (0.1-1.4); CALCIUM 9.1 mg/dL (8.5-10.4); CARBON DIOXIDE 21 mEq/l (22-31); CHLORIDE 103 mEq/L (97-110); CREATININE 0.6 mg/dL (0.6-1.0); GLOMERULAR FILTRATION RATE > 60; GLUCOSE 122 mg/dL (70-100); POTASSIUM 4.1 mEq/L (3.5-5.2); SODIUM 137 mEq/L (134-144)
[2016-05-08] MEDS: IPRATROPIUM/ALBUTEROL 3 ML DEYVIAL IH SCH ×4 (05:25→20:54)
[2016-05-08] MEDS: IBUPROFEN 600 MG TAB PO PRN ×3 (05:59→22:23)
[2016-05-08] MEDS: hydrOXYzine HCL 25 MG TAB PO SCH ×3 (06:00→22:24)
[2016-05-08] MEDS: DIAZEPAM 5 MG TAB PO PRN ×2 (09:51→20:40)
[2016-05-08] MEDS: METHOCARBAMOL 500 MG TAB PO SCH ×3 (09:52→22:24)
[2016-05-08] MEDS: traMADol 50 MG TAB PO PRN ×3 (09:52→22:23)
[2016-05-08] MEDS: guaiFENesin 600 MG TAB.ER PO SCH ×2 (10:00→20:39)
[2016-05-08] MEDS: CHOLECALCIFEROL VIT D3 1,000 UNITS TAB PO SCH (10:00)
[2016-05-08] MEDS: LIDOCAINE 5% 1 EA PATCH TD SCH (10:05)
[2016-05-08] MEDS: NICOTINE 14 MG/24 HR PATCH TD SCH (10:23)
[2016-05-08] MEDS ORDERED: ONDANSETRON 4 MG/2 ML VIAL IVP PRN (13:23)
[2016-05-08] MEDS: ASCORBIC ACID 500 MG TAB PO SCH ×2 (13:55→20:40)
--- NOTE | 2016-05-08 15:02 | HOSPPROG ---
Hospitalist Progress Note Assessment/Plan: 51-year-old female admitted with a complaint of shortness of breath cough sputum production. Patient is new to me today. -acute bronchitis with a productive cough and shortness of breath and mild hypoxemia. Review of the chest x-ray which show that she has never really improved her chest x-ray over the past 4 weeks despite intermittent treatments. Though it is possible to have non clearing chest x-ray and resolution of symptoms this patient continues to have shortness of breath and cough. We placed her back on bronchodilators antibiotics. The question is come up assist regarding her PPD as she is staying in a correction. I have confirmed that her PPD on 2015 was negative through test at the [facility]. -COPD with possibly chronic bronchitis and active tobacco use. She smokes very little and declines a nicotine patch at this time. -GERD. Will continue treatment with PPI medication. -acute and chronic anxiety. Will use medication as necessary. -chronic diagnosis:: Traumatic brain injury in 2001. Known chronic edema. -code status is full -PPD prophylaxis: Lovenox and ambulation. Subjective: Reports she is feeling somewhat improved with the bronchodilators and antibiotics. Denies chest pain nausea or vomiting. Objective: Vital Signs Temp Pulse Resp BP Pulse Ox 36.5 C 70 18 97/65 L 96 05/08/16 12:23 05/08/16 12:23 05/08/16 12:23 05/08/16 12:23 05/08/16 12:23 Laboratory Results 05/08/16 04:02 05/08/16 04:02 05/07/16 05/08/16 05/09/16 05:59 05:59 05:59 Intake Total 600 Output Total 350 Balance 250 PT 14.4 SEC (12.0-15.0) 05/07/16 09:04 INR 1.13 (0.83-1.16) 05/07/16 09:04 - Time Spent With Patient Time Spent with Patient: greater than 35 minutes Time Spent with Patient: Greater than 35 minutes spent on this patients care, greater than 50% of time spent counseling, educating, and coordinating care regarding the above mentioned plan. - Pending Discharge Pending Discharge Within 24 Hours: No Pending Discharge Within 48 Hours: Yes Pending Discharge Date: 05/10/16 Pending Discharge Time: 11:00 - Physical Exam Constitutional: chronically ill appearing Eyes: PERRL Ears, Nose, Mouth, Throat: hearing normal Cardiovascular: regular rate and rhythym, no murmur, rub, or gallop Respiratory: no respiratory distress, reduced air movement, bronchial breath sounds, rhonchi Gastrointestinal: normoactive bowel sounds, soft, non-tender abdomen, no palpable masses Genitourinary: no bladder fullness Skin: warm Musculoskeletal: generalized weakness Neurologic: AAOx3, CN II-XII Intact ICD10 Worksheet Patient Problems: Problems Problem Status Onset Pneumonia Acute Hypoxia Acute Sepsis Acute
[2016-05-08] MEDS: ENOXAPARIN 40 MG/0.4 ML SYR SC SCH (16:35)
[2016-05-08] MEDS: BENZONATATE 100 MG CAP PO PRN (20:39)
[2016-05-08] MEDS: ACETAMINOPHEN 325 MG TAB PO PRN (20:39)
[2016-05-09 04:48] LABS: % IMMATURE GRANULYOCYTES 0.2 % (0.0-1.1); ABSOLUTE IMMATURE GRANULOCYTES 0.02 10^3/uL (0.00-0.10); ADD DIFF? NO; ADD MORPH? NO; ADD SCAN? NO; ATYPICAL LYMPHOCYTE FLAG 80 (0-99); FRAGMENT RBC FLAG 0 (0-99); HEMATOCRIT 35.6 % (38.0-47.0); HEMOGLOBIN 11.6 g/dL (12.6-16.3); LEFT SHIFT FLG 0 (0-99); LIPEMIA HEMOLYSIS FLAG 80 (0-99); MEAN CELL HEMOGLOBIN 29.7 pg (27.9-34.1); MEAN CELL HEMOGLOBIN CONCENTR. 32.6 g/dL (32.4-36.7); MEAN PLATELET VOLUME 10.5 fL (8.7-11.7); PLATELET CLUMPS FLAG 0 (0-99); PLATELET COUNT 280 10^3/uL (150-400); RED BLOOD CELL COUNT 3.91 10^6/uL (4.18-5.33); RED CELL DISTRIBUTION WIDTH 13.2 % (11.5-15.2)
[2016-05-09] MEDS: IPRATROPIUM/ALBUTEROL 3 ML DEYVIAL IH SCH ×4 (05:39→21:51)
[2016-05-09] MEDS: hydrOXYzine HCL 25 MG TAB PO SCH ×3 (06:14→21:36)
[2016-05-09] MEDS: traMADol 50 MG TAB PO PRN ×4 (06:14→21:36)
[2016-05-09] MEDS: IBUPROFEN 600 MG TAB PO PRN ×2 (06:15→21:36)
[2016-05-09] MEDS: guaiFENesin 600 MG TAB.ER PO SCH ×2 (08:52→21:36)
[2016-05-09] MEDS: METHOCARBAMOL 500 MG TAB PO SCH ×3 (08:52→21:37)
[2016-05-09] MEDS: ASCORBIC ACID 500 MG TAB PO SCH ×2 (08:52→21:36)
[2016-05-09] MEDS: ENOXAPARIN 40 MG/0.4 ML SYR SC SCH (08:52)
[2016-05-09] MEDS: NICOTINE 14 MG/24 HR PATCH TD SCH (08:53)
[2016-05-09] MEDS: CHOLECALCIFEROL VIT D3 1,000 UNITS TAB PO SCH (08:53)
[2016-05-09] MEDS: LIDOCAINE 5% 1 EA PATCH TD SCH (09:08)
[2016-05-09] MEDS: DIAZEPAM 5 MG TAB PO PRN ×2 (09:23→21:36)
--- NOTE | 2016-05-09 11:06 | PCMIDPN ---
Assessment/Plan: 51-year-old female admitted with a complaint of shortness of breath cough sputum production. -acute bronchitis with a productive cough and shortness of breath and mild hypoxemia. Review of the chest x-ray which show that she has never really improved her chest x-ray over the past 4 weeks despite intermittent treatments. Though it is possible to have non clearing chest x-ray and resolution of symptoms this patient continues to have shortness of breath and cough. We placed her back on bronchodilators antibiotics. The question is come up assist regarding her PPD as she is staying in a long term. I have confirmed that her PPD on 2015 was negative through test at the [facility]. The influenza screen was negative and the Legionella antigen and the Legionella antigen and strep antigen are pending on the urine test. Plan: Changed to p.o. Levaquin and continue bronchodilator therapy. In light of her continued tobacco use and persistent symptoms of bronchitis I will add a steroid inhaler. -COPD with possibly chronic bronchitis and active tobacco use. She smokes very little and declines a nicotine patch at this time. -GERD. Will continue treatment with PPI medication. -acute and chronic anxiety. Will use medication as necessary. -chronic diagnosis:: Traumatic brain injury in 2001. Known chronic edema. -code status is full -PPD prophylaxis: Lovenox and ambulation. -disposition: Discharge tomorrow on p. O. antibiotics and bronchodilators. Suggested follow-up would be at the [facility]. Patient is new to the area as she is from [place] and has been traveling for the last several months. 05/09/16 11:03 05/09/16 11:06 Subjective: Says she feels improved with less shortness of breath. Her cough is less productive but she continues to produce mercedes white sputum. No chest pain nausea vomiting she is eating well. Objective: Vital Signs Temp Pulse Resp BP Pulse Ox 37.1 C 73 18 97/64 L 97 05/09/16 08:00 05/09/16 08:00 05/09/16 08:00 05/09/16 08:00 05/09/16 08:00 Laboratory Results 05/09/16 03:25 05/08/16 05/09/16 05/10/16 05:59 05:59 05:59 Intake Total 1520 Balance 1520 - Physical Exam General Appearance: WD/WN EENT: PERRL/EOMI Respiratory: chest non-tender, coarse breath sounds Neck: non-tender Cardiac/Chest: normal peripheral pulses, regular rate, rhythm Abdomen: normal bowel sounds, non-tender, soft Skin: normal color Neuro/Psych: oriented x 3 - Time Spent With Patient Time Spent with Patient: greater than 35 minutes Time Spent with Patient: Greater than 35 minutes spent on this patients care, greater than 50% of time spent counseling, educating, and coordinating care regarding the above mentioned plan. - Pending Discharge Pending Discharge Within 24 Hours: Yes Pending Discharge Date: 05/10/16 Pending Discharge Time: 11:00 ICD10 Worksheet Patient Problems: Problems Problem Status Onset Hypoxia Acute Pneumonia Acute Sepsis Acute
[2016-05-09] MEDS: BENZONATATE 100 MG CAP PO PRN (14:33)
[2016-05-09] MEDS: PATCH REMOVAL 1 EA PATCH TD SCH (21:37)
[2016-05-10] MEDS: traMADol 50 MG TAB PO PRN ×4 (04:21→23:29)
[2016-05-10] MEDS: DIAZEPAM 5 MG TAB PO PRN ×4 (04:21→23:30)
[2016-05-10] MEDS: ACETAMINOPHEN 325 MG TAB PO PRN (04:22)
[2016-05-10] MEDS: BENZONATATE 100 MG CAP PO PRN ×2 (04:26→21:06)
[2016-05-10] MEDS: IPRATROPIUM/ALBUTEROL 3 ML DEYVIAL IH SCH ×4 (05:20→21:38)
[2016-05-10] MEDS: IBUPROFEN 600 MG TAB PO PRN ×2 (06:11→20:23)
[2016-05-10] MEDS: hydrOXYzine HCL 25 MG TAB PO SCH ×3 (06:11→21:07)
[2016-05-10] MEDS: METHOCARBAMOL 500 MG TAB PO SCH ×3 (10:43→21:07)
[2016-05-10] MEDS: CHOLECALCIFEROL VIT D3 1,000 UNITS TAB PO SCH (10:44)
[2016-05-10] MEDS: ASCORBIC ACID 500 MG TAB PO SCH ×2 (10:44→20:17)
[2016-05-10] MEDS: guaiFENesin 600 MG TAB.ER PO SCH ×2 (10:44→20:17)
[2016-05-10] MEDS: LIDOCAINE 5% 1 EA PATCH TD SCH (10:44)
[2016-05-10] MEDS: NICOTINE 14 MG/24 HR PATCH TD SCH (10:46)
[2016-05-10] MEDS: ENOXAPARIN 40 MG/0.4 ML SYR SC SCH (10:47)
--- NOTE | 2016-05-10 12:43 | HOSPPROG ---
Hospitalist Progress Note Assessment/Plan: # acute hypoxic resp failure - 85% on RA today # diffuse infiltrates, cough, hypoxia - unclear if bacterial; consider CT if not improving clinically - cont levaquin, add pred, BDs # COPD, chronic bronchitis # anxiety - valium/hydroxyzine prn # TBI 2001 # FCFT # lovenox ## new pt to me CXR personally reviewed chart reviewed Subjective: still feels very SOB; desat'd off O2 Objective: Vital Signs Temp Pulse Resp BP Pulse Ox 36.6 C 94 20 101/60 85 L 05/10/16 06:59 05/10/16 11:46 05/10/16 11:46 05/10/16 11:19 05/10/16 11:46 Laboratory Results 05/09/16 03:25 05/09/16 05/10/16 05/11/16 05:59 05:59 05:59 Intake Total 1520 850 Balance 1520 850 PT 14.4 SEC (12.0-15.0) 05/07/16 09:04 INR 1.13 (0.83-1.16) 05/07/16 09:04 - Physical Exam Constitutional: other (slightly uncomfortable) Cardiovascular: regular rate and rhythym, no murmur, rub, or gallop Respiratory: reduced air movement, expiratory wheeze, respiratory distress (mild ), No rhonchi Gastrointestinal: normoactive bowel sounds, soft, non-tender abdomen, other ( hernia, reducible) ICD10 Worksheet Patient Problems: Problems Problem Status Onset Pneumonia Acute Hypoxia Acute Sepsis Acute
[2016-05-10] MEDS: predniSONE 20 MG TAB PO SCH (14:05)
[2016-05-10] MEDS: PATCH REMOVAL 1 EA PATCH TD SCH (20:19)
[2016-05-11] MEDS: IPRATROPIUM/ALBUTEROL 3 ML DEYVIAL IH SCH ×4 (05:37→20:33)
[2016-05-11] MEDS: hydrOXYzine HCL 25 MG TAB PO SCH ×3 (06:26→21:01)
[2016-05-11 07:00] LABS: ANION GAP 11 mEq/L (8-16); CALCIUM 9.1 mg/dL (8.5-10.4); CARBON DIOXIDE 23 mEq/l (22-31); CHLORIDE 104 mEq/L (97-110); CREATININE 0.5 mg/dL (0.6-1.0); GLOMERULAR FILTRATION RATE > 60; GLUCOSE 114 mg/dL (70-100); POTASSIUM 4.2 mEq/L (3.5-5.2); SODIUM 138 mEq/L (134-144)
[2016-05-11 07:07] LABS: % IMMATURE GRANULYOCYTES 0.5 % (0.0-1.1); ABSOLUTE IMMATURE GRANULOCYTES 0.04 10^3/uL (0.00-0.10); ADD DIFF? NO; ADD MORPH? NO; ADD SCAN? YES; FRAGMENT RBC FLAG 0 (0-99); HEMATOCRIT 39.2 % (38.0-47.0); HEMOGLOBIN 12.8 g/dL (12.6-16.3); LEFT SHIFT FLG 10 (0-99); LIPEMIA HEMOLYSIS FLAG 80 (0-99); MEAN CELL HEMOGLOBIN 28.8 pg (27.9-34.1); MEAN CELL HEMOGLOBIN CONCENTR. 32.7 g/dL (32.4-36.7); MEAN CELL VOLUME 88.1 fL (81.5-99.8); MEAN PLATELET VOLUME 9.9 fL (8.7-11.7); PLATELET CLUMPS FLAG 0 (0-99); PLATELET COUNT 354 10^3/uL (150-400); RED BLOOD CELL COUNT 4.45 10^6/uL (4.18-5.33); RED CELL DISTRIBUTION WIDTH 13.1 % (11.5-15.2)
[2016-05-11 07:17] LABS: ATYPICAL LYMPHOCYTE FLAG 160 (0-99)
--- NOTE | 2016-05-11 08:28 | HOSPPROG ---
Hospitalist Progress Note Assessment/Plan: # acute hypoxic resp failure - ongoing, still requiring O2 # bilat upper lobe ground glass, has not resolved with abx - appreciate Dr Junior's consult - he will bronch today for dx - check histo, resp viral pcr, HIV # COPD, chronic bronchitis # anxiety - valium/hydroxyzine prn # TBI 2001 # FCFT # lovenox ## discussed with Dr Junior - he will consult CT reviewed, personally interpreted Subjective: still SOB; henria painful with coughing Objective: Vital Signs Temp Pulse Resp BP Pulse Ox 36.8 C 61 16 108/68 97 05/11/16 07:17 05/11/16 07:17 05/11/16 07:17 05/11/16 07:17 05/11/16 07:17 Laboratory Results 05/11/16 06:10 05/10/16 05/11/16 05/12/16 05:59 05:59 05:59 Intake Total 850 500 Balance 850 500 PT 14.4 SEC (12.0-15.0) 05/07/16 09:04 INR 1.13 (0.83-1.16) 05/07/16 09:04 - Physical Exam Constitutional: no apparent distress, appears nourished Cardiovascular: regular rate and rhythym, no murmur, rub, or gallop, systolic murmur Respiratory: no rales or rhonchi, inspiratory crackles (upper lobes), respiratory distress (mild) Gastrointestinal: normoactive bowel sounds, other ICD10 Worksheet Patient Problems: Problems Problem Status Onset Hypoxia Acute Pneumonia Acute Sepsis Acute
[2016-05-11 08:32] LABS: SCAN POSITIVE
[2016-05-11 08:38] LABS: PLATELET ESTIMATE ADEQUATE (ADEQ); TOXIC VACUOLIZATION PRESENT
[2016-05-11] MEDS: guaiFENesin 600 MG TAB.ER PO SCH (08:57)
[2016-05-11] MEDS: METHOCARBAMOL 500 MG TAB PO SCH ×3 (08:57→21:01)
[2016-05-11] MEDS: ASCORBIC ACID 500 MG TAB PO SCH ×2 (08:57→21:00)
[2016-05-11] MEDS: CHOLECALCIFEROL VIT D3 1,000 UNITS TAB PO SCH (08:58)
[2016-05-11] MEDS: DIAZEPAM 5 MG TAB PO PRN ×3 (09:00→21:01)
[2016-05-11] MEDS: LIDOCAINE 5% 1 EA PATCH TD SCH (09:01)
[2016-05-11] MEDS: predniSONE 20 MG TAB PO SCH ×2 (09:24→09:58)
[2016-05-11] MEDS: NICOTINE 14 MG/24 HR PATCH TD SCH (09:26)
[2016-05-11] MEDS: GUAIFENESIN/DM 10 ML UDCUP PO PRN ×2 (10:36→21:01)
[2016-05-11] MEDS: ENOXAPARIN 40 MG/0.4 ML SYR SC SCH (10:36)
[2016-05-11] MEDS: traMADol 50 MG TAB PO PRN ×2 (14:46→20:58)
[2016-05-11] MEDS: IBUPROFEN 600 MG TAB PO PRN (16:25)
[2016-05-11] MEDS: PATCH REMOVAL 1 EA PATCH TD SCH (21:02)
[2016-05-12] MEDS: IPRATROPIUM/ALBUTEROL 3 ML DEYVIAL IH SCH ×4 (06:12→20:55)
[2016-05-12] MEDS: hydrOXYzine HCL 25 MG TAB PO SCH ×3 (07:13→22:20)
[2016-05-12] MEDS: NICOTINE 14 MG/24 HR PATCH TD SCH (07:23)
--- NOTE | 2016-05-12 09:39 | HOSPPROG ---
Hospitalist Progress Note Assessment/Plan: 51F, 3rd hospitalization in 6 weeks for resp failure. Failed treatment previously. Unclear if this is bacterial, ILD, other. Refused bronch. Showing slow improvement. Will involve ID today. # acute hypoxic resp failure - ongoing, still requiring O2 # bilat upper lobe ground glass, has not resolved with abx; - patient refused bronch - check histo, resp viral pcr, HIV, sputum cx - cont levaquin/prednisone for now - ID consult, will also discuss with Dr Junior # thyroid nodule - patient aware - refusing further w/u at this time # anxiety - valium/hydroxyzine prn # TBI 2001 # FCFT # lovenox ## mod risk with ongoing acute hypoxia Subjective: breathing feels lsightly better today Objective: Vital Signs Temp Pulse Resp BP Pulse Ox 36.8 C 62 20 112/65 96 05/12/16 08:00 05/12/16 08:00 05/12/16 08:00 05/12/16 08:00 05/12/16 08:00 Laboratory Results 05/11/16 06:10 05/11/16 06:10 05/11/16 05/12/16 05/13/16 05:59 05:59 05:59 Intake Total 500 1000 Output Total 200 Balance 500 800 PT 14.4 SEC (12.0-15.0) 05/07/16 09:04 INR 1.13 (0.83-1.16) 05/07/16 09:04 - Physical Exam Constitutional: no apparent distress, appears nourished Cardiovascular: regular rate and rhythym, no murmur, rub, or gallop, systolic murmur Respiratory: other (mild resp distress; bilat upper lung rales; mild ezpir wheezes; no rhonchi) Gastrointestinal: normoactive bowel sounds, soft, non-tender abdomen, no palpable masses, other (hernia, reducible) ICD10 Worksheet Patient Problems: Problems Problem Status Onset Hypoxia Acute Pneumonia Acute Sepsis Acute
[2016-05-12] MEDS: CHOLECALCIFEROL VIT D3 1,000 UNITS TAB PO SCH (10:06)
[2016-05-12] MEDS: METHOCARBAMOL 500 MG TAB PO SCH ×3 (10:06→22:20)
[2016-05-12] MEDS: predniSONE 20 MG TAB PO SCH (10:07)
[2016-05-12] MEDS: ENOXAPARIN 40 MG/0.4 ML SYR SC SCH (10:07)
[2016-05-12] MEDS: ASCORBIC ACID 500 MG TAB PO SCH ×2 (10:07→22:21)
[2016-05-12] MEDS: DIAZEPAM 5 MG TAB PO PRN ×3 (10:13→22:20)
[2016-05-12] MEDS: GUAIFENESIN/DM 10 ML UDCUP PO PRN (10:42)
[2016-05-12] MEDS: LIDOCAINE 5% 1 EA PATCH TD SCH (10:44)
[2016-05-12] MEDS: IBUPROFEN 600 MG TAB PO PRN ×2 (10:48→22:19)
[2016-05-12] MEDS: traMADol 50 MG TAB PO PRN ×2 (11:45→22:20)
--- NOTE | 2016-05-12 15:07 | PDINTPN ---
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 Her CT scan on this admission showed diffuse bilateral, upper lobe predominant reticular infiltrates with minor JUSTYN, but no fibrotic changes or honeycombing or traction bronchiectasis. I agreeed with bronchoscopy for further clarification of her illness, but she declined. * Abnormal CT- the DDx includes hypersensitivity pneumonitis, cryptogenic organizing pneumonia, acute eosinophilic pneumonitis, eosinophilic granulomatosis, sarcoid and aspiration pneumonitis. I favor the latter, but the lack of bronchoscopy makes it difficult to be definitive. I discussed the risks and benefits of bronch at length on 05/11, but she re-iterated her fears today. This is not an unreasonable perspective and some of the possibilities are less likely (eg EG since no peripheral eos). Agree with DAMARIS, CTD work-up and she should have a repeat CT in 1-2 months. Since recurrent CAP is also a possibility , I would complete 5-7 days of Levaquin, but would of course defer to ID. Of note, this would be an excellent application for procalcitonin once it is available to our institution. * COPD- this is a preliminary diagnosis in the absence of PFTs. I assume her systemic steroids are for this, which I would favor stopping for now and using nebs/MDIs prn. She will eventually need outpatient PFTs. * Subjective: Stable overnight and reports improved symptoms today- no cough, hemoptysis, sob. Re-iterated fear of BAL Objective: Vital Signs Temp Pulse Resp BP Pulse Ox 36.8 C 74 16 112/65 93 05/12/16 08:00 05/12/16 10:17 05/12/16 10:17 05/12/16 08:00 05/12/16 10:17 Microbiology 05/12/16 10:20 - Final Sputum, Induced/Suctioned Laboratory Results 05/11/16 06:10 05/11/16 06:10 05/11/16 05/12/16 05/13/16 05:59 05:59 05:59 Intake Total 500 1000 240 Output Total 200 Balance 500 800 240 PT 14.4 SEC (12.0-15.0) 05/07/16 09:04 INR 1.13 (0.83-1.16) 05/07/16 09:04 Physical Exam - Physical Exam General Appearance: alert, no apparent distress, obese EENT: other (edentulous) Neck: full range of motion, supple Respiratory: lungs clear, normal breath sounds, No respiratory distress, No crackles Cardiac/Chest: normal peripheral pulses, regular rate, rhythm, No edema Abdomen: normal bowel sounds, non-tender, soft, No distended Skin: normal color, warm/dry Lymphatic: no adenopathy Extremities: non-tender, No pedal edema Neuro/Psych: alert, normal mood/affect, oriented x 3 ICD10 Worksheet Patient Problems: Problems Problem Status Onset Hypoxia Acute Pneumonia Acute Sepsis Acute
--- NOTE | 2016-05-12 15:29 | GCON ---
[f rep st] CONSULTATION DATE OF CONSULTATION: 05/11/2016 REASON FOR CONSULTATION: I was asked to see this patient due to persistent infiltrates and what may be recurring pneumonia. HISTORY OF PRESENT ILLNESS: She is a 51-year-old female who is homeless and recently moved here [facility] due to personal stresses. In any case, she apparently has had multiple hospitalizations in the last 6 weeks, each treated for pneumonia. Interestingly, on her chest x-rays, her infiltrat es appear to have changed somewhat. On this admission, she was diagnosed with community-acquired pn eumonia, treated with Levaquin and oxygen as well as prednisone and appeared to be relatively improv ed; however, further investigation revealed the persistent infiltrates. A CT scan was performed rev ealing diffuse ground-glass infiltrates in the upper lobes more so than the lower lobes but bilatera lly certainly as well and no effusions. I was asked to comment on this and whether or not a broncho scopy would be useful. The patient did report fevers on admission as well as shortness of breath an d ongoing smoking despite a diagnosis of COPD. In any case, she had a normal appetite and denied an y unanticipated weight loss. There has been no hemoptysis and no history of renal disease. No Rayn aud phenomenon. No excessive joint problems and no history of connective tissue disease. REVIEW OF SYSTEMS: Otherwise negative. PAST MEDICAL HISTORY: 1. COPD. 2. Traumatic brain injury. 3. Gastroesophageal reflux disease. 4. Anxiety. 5. Chronic lower extremity edema. PAST SURGICAL HISTORY: 1. Cholecystectomy. 2. Partial hysterectomy. 3. Lipoma resection in the past. SOCIAL HISTORY: She denies any alcohol but is an ongoing smoker. No IV drug use and is homeless. FAMILY HISTORY: Lacks connective tissue disease. CURRENT MEDICATIONS: Include Tylenol, albuterol as needed, scheduled DuoNeb, vitamins C and D, Baldomero um, Lovenox, Robitussin, Motrin, Levaquin, Robaxin, Zofran, and prednisone 40 mg daily which was sta rted earlier on the . PHYSICAL EXAMINATION: VITAL SIGNS: She was afebrile at 37, respiratory rate of 18, heart rate of 8 5, blood pressure 115/77, oxygen saturation 94% on 2 L. GENERAL: She was a [id number] obes e woman who was awake and alert in no apparent distress and able to speak in full sentences without using accessory muscles for breathing. HEENT: Pupils are equally round, reactive to light, noninje cted, and nonicteric. Mucous membranes were moist without erythema or exudate. She was edentulous. NECK: Supple without adenopathy or jugular vein distention. RESPIRATORY: Breath sounds revealed mild rales at the bases but was primarily clear to auscultation without wheezing. HEART: Had a re gular rate and rhythm without obvious murmur. ABDOMEN: Soft, nontender, nondistended without hepat osplenomegaly. EXTREMITIES: Showed no clubbing, cyanosis, or edema. NEUROLOGIC: Nonfocal includi ng cranial nerves and deep tendon reflexes. SKIN: Warm and dry without obvious rashes. OBJECTIVE DATA: Particularly her chest CT scan which shows waxing and waning bilateral ground-glass pulmonary infiltrates that, as I said, were primarily in the upper lobes. There was a noncalcified 4 mm nodule in the right lower lobe as well as a 7 mm nodule in the left upper lobe, a 3 cm probabl e thyroid nodule displacing the trachea to the left. Her white count on admission was 12, went up t o 13.7 and, at the time of consultation, was 7.4; hematocrit was 39; platelets of 354. Basic metabo lic panel was unremarkable. An HIV test was negative. ASSESSMENT/PLAN: 1. Fleeting infiltrates in a patient who has probable pneumonia. It is hard to say what this actua lly represents at this time, and I did agree that a bronchoalveolar lavage would be useful in [facility] to look for evidence of potential fungal disease such as coccidioidomycosis which is uncommon c ertainly in this area but also to help look for pulmonary eosinophilia which would be consistent wit h acute eosinophilic pneumonitis. Connective tissue disease, cryptogenic organizing pneumonia, or h ypersensitivity pneumonitis are all in the differential as well as aspiration which is high on my li st of possibilities. In either case, she was treated with antibiotics and steroids and seems to be getting better. I suggested to the patient a bronchoalveolar lavage, but once she heard the risks, she declined that test at this time. Though I thought this was not unreasonable, it was not my sheri mmended approach to therapy. In either case, she will continue on oxygen and her current medication s, and as a suboptimal alternative to a bronchoscopy at this time, a repeat CT PET scan in 1-2 month s would be reasonable as long as she continues to improve. I agree with a serologic workup which in cludes histoplasmosis antigen as well as an DAMARIS, and we might consider ANCA and antibodies as well. 2. Chronic obstructive pulmonary disease: This is a clinical diagnosis. The nebulizers are perfec tly fine. She should probably confirm this diagnosis with pulmonary function testing at some point. The prednisone that is present time can likely be withheld. 3. Hypoxemia: This is likely due to #1, and I would simply recommend ongoing pulmonary toilet and titrating the oxygen to a saturation of greater than 90%. /[id number]/MODL
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
[2016-05-12] MEDS: PATCH REMOVAL 1 EA PATCH TD SCH (22:21)
[2016-05-13] MEDS: traMADol 50 MG TAB PO PRN ×2 (05:01→11:23)
[2016-05-13] MEDS: DIAZEPAM 5 MG TAB PO PRN ×2 (05:02→11:19)
[2016-05-13] MEDS: hydrOXYzine HCL 25 MG TAB PO SCH ×2 (05:02→12:58)
[2016-05-13 05:37] LABS: % IMMATURE GRANULYOCYTES 0.6 % (0.0-1.1); ABSOLUTE IMMATURE GRANULOCYTES 0.04 10^3/uL (0.00-0.10); ADD DIFF? NO; ADD MORPH? NO; ADD SCAN? YES; FRAGMENT RBC FLAG 0 (0-99); HEMATOCRIT 37.6 % (38.0-47.0); HEMOGLOBIN 12.1 g/dL (12.6-16.3); LEFT SHIFT FLG 0 (0-99); LIPEMIA HEMOLYSIS FLAG 80 (0-99); MEAN CELL HEMOGLOBIN 28.5 pg (27.9-34.1); MEAN CELL HEMOGLOBIN CONCENTR. 32.2 g/dL (32.4-36.7); MEAN CELL VOLUME 88.7 fL (81.5-99.8); MEAN PLATELET VOLUME 9.5 fL (8.7-11.7); PLATELET CLUMPS FLAG 0 (0-99); PLATELET COUNT 412 10^3/uL (150-400); RED BLOOD CELL COUNT 4.24 10^6/uL (4.18-5.33); RED CELL DISTRIBUTION WIDTH 13.1 % (11.5-15.2)
[2016-05-13 05:41] LABS: ANION GAP 10 mEq/L (8-16); ATYPICAL LYMPHOCYTE FLAG 300 (0-99); CARBON DIOXIDE 25 mEq/l (22-31); CHLORIDE 104 mEq/L (97-110); CREATININE 0.5 mg/dL (0.6-1.0); GLOMERULAR FILTRATION RATE > 60; GLUCOSE 96 mg/dL (70-100); POTASSIUM 3.7 mEq/L (3.5-5.2); SODIUM 139 mEq/L (134-144)
[2016-05-13] MEDS: IPRATROPIUM/ALBUTEROL 3 ML DEYVIAL IH SCH ×2 (05:43→11:11)
[2016-05-13 06:01] LABS: SCAN POSITIVE
[2016-05-13 06:11] LABS: HYPOCHROMIA 1+; PLATELET ESTIMATE ADEQUATE (ADEQ)
[2016-05-13 08:27] VITALS: BP 111/76; TEMP 98.4
[2016-05-13] MEDS: predniSONE 20 MG TAB PO SCH (08:38)
[2016-05-13] MEDS: CHOLECALCIFEROL VIT D3 1,000 UNITS TAB PO SCH (08:39)
[2016-05-13] MEDS: ASCORBIC ACID 500 MG TAB PO SCH (08:39)
[2016-05-13] MEDS: METHOCARBAMOL 500 MG TAB PO SCH ×2 (08:39→15:06)
[2016-05-13] MEDS: LIDOCAINE 5% 1 EA PATCH TD SCH (08:39)
[2016-05-13] MEDS: GUAIFENESIN/DM 10 ML UDCUP PO PRN (08:40)
[2016-05-13] MEDS: NICOTINE 14 MG/24 HR PATCH TD SCH (10:24)
[2016-05-13] MEDS ORDERED: OSELTAMIVIR PHOSPHATE 75 MG CAP PO SCH (11:13)
[2016-05-13 11:14] VITALS: PULSE 67; RESP 18
[2016-05-13] MEDS: IBUPROFEN 600 MG TAB PO PRN (11:23)
--- NOTE | 2016-05-13 11:54 | PCMIDPN ---
Assessment/Plan: Assessment: influenza B by respiratory viral panel PCR. Started on oseltamivir. Patient is probably stable enough for completion of therapy as on outpatient. Follow up with PCP clinic in 7-10 days. Plan: 1) Oseltamivir 75 mg po BID x 5 days. 2) Stable for discharge. 05/13/16 11:51 05/13/16 11:53 Subjective: Patient doing well. Breathing is improved. No new complaints. No fevers. Occasional productive cough. Objective: oseltamivir #1 Vital Signs Temp Pulse Resp BP Pulse Ox 36.9 C 67 18 111/76 97 05/13/16 08:25 05/13/16 11:13 05/13/16 11:13 05/13/16 08:25 05/13/16 11:13 Microbiology 05/12/16 10:20 - Final Sputum, Induced/Suctioned Laboratory Results 05/13/16 05:10 05/13/16 05:10 05/12/16 05/13/16 05/14/16 05:59 05:59 05:59 Intake Total 1000 2080 Output Total 200 Balance 800 2080 - Physical Exam General Appearance: WD/WN, alert, no apparent distress, non-toxic Respiratory: lungs clear, normal breath sounds, No respiratory distress Cardiac/Chest: regular rate, rhythm, No tachycardia Skin: normal color, warm/dry, No rash Neuro/Psych: alert, normal mood/affect, oriented x 3 ICD10 Worksheet Patient Problems: Problems Problem Status Onset Hypoxia Acute Pneumonia Acute Sepsis Acute
[2016-05-13 13:15] VITALS: O2SAT 91
--- NOTE | 2016-05-13 17:24 | GDS ---
[f rep st] DISCHARGE SUMMARY DISCHARGE DIAGNOSES: 1. Acute hypoxemic respiratory failure, most likely due to influenza B. 2. Bilateral upper lobe ground-glass opacities, possibly due to flu versus other. 3. Thyroid nodule. 4. Anxiety. 5. Traumatic brain injury. 6. Tobacco dependence. CONSULTANTS: 1. Dr. Jack Junior, Pulmonology. 2. Dr. Pedro Giles, Infectious Disease. HOSPITAL COURSE AND STAY BY PROBLEM: 1. Acute respiratory failure: The patient was admitted to the hospital. A CT of the chest was don e on 05/10/2016, that showed chronic waxing and waning bilateral ground-glass pulmonary opacities. Blood cultures have been negative. Influenza A and B by DFA was negative on admission. However, re spiratory viral panel done on 05/11/2016, returned positive for influenza B. 2. During the patient's hospital course, bronchoscopy was recommended to the patient by Pulmonology to help further define her diagnosis. Bronchoscopy was refused by the patient. On day of discharg e, the patient states she is feeling better. She has finished a 5-day course of levofloxacin, which will be stopped. She has been started on Tamiflu to complete a 10-day course. 3. 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 PHYSICAL EXAM ON DISCHARGE: VITAL SIGNS: Blood pressure 111/76, pulse 59, respiratory rate 14, O2 saturation 98% on 2 L. Temperature afebrile. GENERAL: In no acute distress. HEART: S1, S2. ERLIN GS: Clear. ABDOMEN: Soft. EXTREMITIES: No edema. PERTINENT LABS AND STUDIES: Chest CT done 05/10/2016, refer to report. DISCHARGE MEDICATIONS: Please refer to discharge medication reconciliation in [facility] for full det ails. Below is a preliminary list. NEW MEDICATIONS ON HOSPITAL DISCHARGE: Tamiflu 75 mg p.o. b.i.d. to complete a 5-day course. DISCHARGE INSTRUCTIONS: The patient will be discharged from the hospital, where she should complete her 5-day course of Tamiflu. She should have outpatient followup of her possible thyroid nodule. She will also follow up with Dr. Junior from Pulmonology for PFTs, and should have a repeat chest CT in 1 to 2 months. LABS PENDING ON DAY OF DISCHARGE: DAMARIS is pending. The patient continues to have waxing and waning infiltrates. It would be prudent to evaluate her fo r Rafael disease with an ANCA panel. Greater than 30 minutes were spent on the discharge of this patient. /[id number]/MODL
[2016-05-16 08:25] LABS: HISTOPLASMA AG INTERPRETATION Negative
== END 2016-05-13 15:09 | disposition home or self-care (01) | DRG 193 ==
LOC: EDUNIT# → F2W 11:08 → OBSVTOIN 05-08 15:02
PROVIDERS: ADMIT Hospitalist; ATTEND Family Medicine
DX: J10.1 Influenza due to other identified influenza virus with other respiratory manifestations (principal); J96.01 Acute respiratory failure with hypoxia; E04.1 Nontoxic single thyroid nodule; R91.8 Other nonspecific abnormal finding of lung field; F17.200 Nicotine dependence, unspecified, uncomplicated; M25.562 Pain in left knee; J44.9 Chronic obstructive pulmonary disease, unspecified; R60.0 Localized edema; F41.9 Anxiety disorder, unspecified; K21.9 Gastro-esophageal reflux disease without esophagitis; Z87.820 Personal history of traumatic brain injury; Z59.0 Homelessness; Z79.51 Long term (current) use of inhaled steroids
CPT/HCPCS: 86612-90; 87385-90; 87449-90; 97116-GP; 97161-GP; 97165-GO; 97530-GP; 97532-GO; 97535-GO; G0378; J1650; J1956; J2405

== ENCOUNTER 2016-07-24 16:17 | Inpatient (IN) | payer MEDICAID ==
--- NOTE | 2016-07-24 16:18 | EDPHY ---
HPI/HX/ROS/PE/MDM Narrative: CHIEF COMPLAINT: Dyspnea HPI: This patient is a 51-year-old female with history of COPD and recurrent bronchitis who presents to the Emergency Department via EMS complaining of worsening shortness of breath and cough over the past few days. She also complains of nausea and vomiting beginning last night, generalized malaise, and fever measured at home up to 102F. Upon arrival, she reports that her dyspnea has moderately improved but continues to complain of cough and malaise. Nausea was alleviated with 12.5mg Phenergan administered by EMS in transport. She uses an albuterol inhaler at home for bronchitis recurrences but reports that this did not improve her cough and dyspnea today. Medical history also includes anxiety. REVIEW OF SYSTEMS: Aside from elements discussed in the HPI, a comprehensive 10-point review of systems was reviewed and is negative. PMH: 1. Recurrent bronchitis (albuterol inhaler) 2. Self-reducing hernia 3. Anxiety 4. COPD 5. TBI 2001 SOCIAL HISTORY: Smokes regularly, single. PHYSICAL EXAM: General:Patient is alert, in no acute distress. ENT:Eyes are normal to inspection. ENT inspection normal. Neck: Normal inspection. Full range of motion. Respiratory:No respiratory distress. Breath sounds normal bilaterally. Cardiovascular: Regular rate and rhythm. Strong peripheral pulses. Normal cap refill. Abdomen:The abdomen is nontender to palpation. There are no peritoneal signs. There are normal bowel sounds. Back: Normal to inspection. No tenderness to palpation. Skin: Normal color. No rash. Warm and dry. Extremities: Normal appearance. Full range of motion. Neuro: Oriented x3. Normal motor function. Normal sensory function. ED Course: 1618: Took EMS report at bedside: CC of dyspnea. O2 sat reported in mid-80% range upon fire arrival, a nonrebreather was used. 94% on RA by EMS arrival. 12.5mg Phenergan in transport for nausea. 51-year-old female with history of COPD, bronchitis, and hypoxemic respiratory failure in 04/2016 who presents with complaints of dyspnea, cough, self-reported fever, nausea, and malaise. On exam, her lungs are clear to auscultation. She is not hypoxemic in the ED. Will proceed with labs and chest x-ray. Chest x-ray read by Dr. Espana, radiologist, and reviewed by myself shows chronic bilateral infiltrate. Labs obtained: WBC elevated at 16.03. 2019: The patient is hypoxemic down to 82% on RA when ambulating. Given this, I feel that the patient should be admitted. I discussed this with her and she expresses agreement to this treatment plan. 2032: Consultation with Dr. Irma Clemens, hospitalist, who accepts admission. - Data Points Imaging Results: Imaging Impressions Chest X-Ray 07/24/16 16:23 Impression: Chronic bilateral pulmonary infiltrate remains, slightly worse in the right lower lobe. Imaging: I viewed and interpreted images myself Laboratory Results: Laboratory Results 07/24/16 17:37 07/24/16 17:37 07/24/16 07/24/16 17:37 17:37 WBC 16.03 10^3/uL H 10^3/uL (3.80-9.50) RBC 4.26 10^6/uL 10^6/uL (4.18-5.33) Hgb 12.1 g/dL L g/dL (12.6-16.3) Hct 37.0 % L % (38.0-47.0) MCV 86.9 fL fL (81.5-99.8) MCH 28.4 pg pg (27.9-34.1) MCHC 32.7 g/dL g/dL (32.4-36.7) RDW 15.5 % H % (11.5-15.2) Plt Count 202 10^3/uL 10^3/uL (150-400) MPV 10.2 fL fL (8.7-11.7) Neut % (Auto) 83.7 % H % (39.3-74.2) Lymph % (Auto) 13.3 % L % (15.0-45.0) [place] % (Auto) 2.0 % L % (4.5-13.0) Eos % (Auto) 0.4 % L % (0.6-7.6) Baso % (Auto) 0.2 % L % (0.3-1.7) Nucleat RBC Rel Count 0.0 % % (0.0-0.2) Absolute Neuts (auto) 13.42 10^3/uL H 10^3/uL (1.70-6.50) Absolute Lymphs (auto) 2.13 10^3/uL 10^3/uL (1.00-3.00) Absolute Monos (auto) 0.32 10^3/uL 10^3/uL (0.30-0.80) Absolute Eos (auto) 0.06 10^3/uL 10^3/uL (0.03-0.40) Absolute Basos (auto) 0.04 10^3/uL 10^3/uL (0.02-0.10) Absolute Nucleated RBC 0.00 10^3/uL 10^3/uL (0-0.01) Immature Gran % 0.4 % % (0.0-1.1) Immature Gran # 0.06 10^3/uL 10^3/uL (0.00-0.10) Sodium 139 mEq/L mEq/L (134-144) Potassium 3.4 mEq/L L mEq/L (3.5-5.2) Chloride 108 mEq/L mEq/L (97-110) Carbon Dioxide 21 mEq/l L mEq/l (22-31) Anion Gap 10 mEq/L mEq/L (8-16) BUN 14 mg/dL mg/dL (7-23) Creatinine 0.6 mg/dL mg/dL (0.6-1.0) Estimated GFR > 60 Glucose 98 mg/dL mg/dL (70-100) Calcium 8.9 mg/dL mg/dL (8.5-10.4) Medications Given: Discontinued Medications Ceftriaxone Sodium/Dextrose (Rocephin 1 Gm (Premix)) 50 mls @ 100 mls/hr IV EDNOW ONE PRN Reason: Protocol Stop: 07/24/16 21:02 Last Admin: 07/24/16 20:54 Dose: 50 mls General Initial Vital Signs: Initial Vital Signs Temperature (C) 36.7 C 07/24/16 16:28 Heart Rate 93 07/24/16 16:28 Respiratory Rate 20 07/24/16 16:28 Blood Pressure 117/96 H 07/24/16 16:28 O2 Sat (%) 93 07/24/16 16:28 O2 Delivery Mode Room Air O2 (L/minute) 2 Allergies/Adverse Reactions: droperidol [From Inapsine] Allergy (Severe, Verified 04/01/16 20:04) SEIZURES haloperidol [From Haldol] Allergy (Severe, Verified 04/01/16 20:04) SEIZURES haloperidol lactate [From Haldol] Allergy (Severe, Verified 04/01/16 20:04) SEIZURES Home Medications: Medication Instructions Recorded Albuterol [Proventil Inhaler HFA 1 - 2 puffs IH Q4H 07/24/16 (*)] Ascorbic Acid [Vitamin C 500 mg 500 mg PO BID 07/24/16 (*)] Cholecalciferol Vit D3 [Vitamin D3 1,000 units PO DAILY 07/24/16 (*)] Herbals/Supplements -Info Only 1 ea PO DAILY 07/24/16 Methocarbamol 500 mg PO TID 07/24/16 hydrOXYzine HCL [Vistaril] 50 mg PO QID PRN 07/24/16 levOFLOXACIN [levAQUIN (*)] 750 mg PO DAILY 07/24/16 traMADol [Ultram 50 mg (*)] 50 mg PO Q6 PRN 07/24/16 Departure - Departure Disposition: [facility] Inpatient Acute Clinical Impression: Hypoxia Condition: Fair Report Scribed for: Rigoberto Roman Report Scribed by: Nydia Rizvi Date of Report: 07/24/16 Time of Report: 16:18 Physician Review and Approval Statement: Portions of this note were transcribed by an ED scribe. I personally performed the history, physical exam, and medical decision making; and confirm the accuracy of the information in the transcribed note.
[2016-07-24 17:59] LABS: % IMMATURE GRANULYOCYTES 0.4 % (0.0-1.1); ABSOLUTE IMMATURE GRANULOCYTES 0.06 10^3/uL (0.00-0.10); ADD DIFF? NO; ADD MORPH? NO; ADD SCAN? YES; ATYPICAL LYMPHOCYTE FLAG 0 (0-99); FRAGMENT RBC FLAG 0 (0-99); HEMOGLOBIN 12.1 g/dL (12.6-16.3); LEFT SHIFT FLG 10 (0-99); LIPEMIA HEMOLYSIS FLAG 80 (0-99); MEAN CELL HEMOGLOBIN 28.4 pg (27.9-34.1); MEAN CELL HEMOGLOBIN CONCENTR. 32.7 g/dL (32.4-36.7); MEAN CELL VOLUME 86.9 fL (81.5-99.8); MEAN PLATELET VOLUME 10.2 fL (8.7-11.7); PLATELET COUNT 202 10^3/uL (150-400); RED BLOOD CELL COUNT 4.26 10^6/uL (4.18-5.33); RED CELL DISTRIBUTION WIDTH 15.5 % (11.5-15.2)
[2016-07-24 18:04] LABS: PLATELET CLUMPS FLAG 300 (0-99)
[2016-07-24 18:23] LABS: SCAN NEGATIVE
[2016-07-24 18:34] LABS: ANION GAP 10 mEq/L (8-16); CALCIUM 8.9 mg/dL (8.5-10.4); CARBON DIOXIDE 21 mEq/l (22-31); CHLORIDE 108 mEq/L (97-110); CREATININE 0.6 mg/dL (0.6-1.0); GLOMERULAR FILTRATION RATE > 60; GLUCOSE 98 mg/dL (70-100); POTASSIUM 3.4 mEq/L (3.5-5.2); SODIUM 139 mEq/L (134-144)
[2016-07-24] MEDS ORDERED: ONDANSETRON 4 MG/2 ML VIAL IVP PRN (21:39)
[2016-07-24] MEDS ORDERED: LORazepam 2 MG/ML INJ IVP ONE (21:53)
[2016-07-24] MEDS ORDERED: IOPAMIDOL (ISOVUE-300) 100 ML BTL ONE (21:56)
[2016-07-24] MEDS ORDERED: LORazepam 2 MG/ML INJ ONE (22:06)
[2016-07-24] MEDS ORDERED: ALBUTEROL 3 ML DEYVIAL IH PRN (22:30)
--- NOTE | 2016-07-24 22:35 | PDGENHP ---
History and Physical - Chief Complaint fever, SOB - History of Present Illness 51 yo female with h/o COPD, anxiety and chronic, waxing and waning b/l pulmonary infiltrates presents to the ED with fever and SOB. She was admitted in March for PNA after failing outpatient treatment with Levaquin. She was admitted again in April 2016 with recurring b/l infiltrates and tested positive for Influenza B at that time. She was again treated with Levaquin. CT imaging suggested a broad differential and Pulmonary and ID consults were obtained. Bronchoscopy was recommended, but the patient declined this as the PARQ discussion scared her. Workup at that time included a negative histoplasma Ag, negative DAMARIS, negative blastomyces Ab and negative HIV. She denies IVDA. She returns today reporting fever to 103 last night. She complains of productive cough and SOB. She saw an outpatient doctor yesterday and was again started on a course of Levaquin. Her symptoms worsened and she came to the ED. She was given 1g IV Ceftriaxone in the ED and she is admitted for further management. History Information - Allergies/Home Medication List Allergies/Adverse Reactions: droperidol [From Inapsine] Allergy (Severe, Verified 04/01/16 20:04) SEIZURES haloperidol [From Haldol] Allergy (Severe, Verified 04/01/16 20:04) SEIZURES haloperidol lactate [From Haldol] Allergy (Severe, Verified 04/01/16 20:04) SEIZURES Home Medications: Albuterol [Proventil Inhaler HFA (*)] 1 - 2 puffs IH Q4H 07/24/16 [Last Taken Unknown] Ascorbic Acid [Vitamin C 500 mg (*)] 500 mg PO BID 07/24/16 [Last Taken Unknown] Cholecalciferol Vit D3 [Vitamin D3 (*)] 1,000 units PO DAILY 07/24/16 [Last Taken Unknown] Herbals/Supplements -Info Only 1 ea PO DAILY 07/24/16 [Last Taken 07/24/16] Methocarbamol 500 mg PO TID 07/24/16 [Last Taken 07/21/16] hydrOXYzine HCL [Vistaril] 50 mg PO QID PRN 07/24/16 [Last Taken Unknown] levOFLOXACIN [levAQUIN (*)] 750 mg PO DAILY 07/24/16 [Last Taken 07/24/16] traMADol [Ultram 50 mg (*)] 50 mg PO Q6 PRN 07/24/16 [Last Taken 07/21/16] I have personally reviewed and updated: family history, medical history, social history, surgical history - Past Medical History Additional medical history: COPD. GERD/hiatal hernia. 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 anxiety disorder - Surgical History Additional surgical history: partial hysterectomy. cholecystectomy. lipoma resection - Family History Additional family history: mom had dementia. dad had emphysema - Social History Smoking Status: Current every day smoker Tobacco Use: Less than 1 pack/day Alcohol Use: None Drug Use: None Additional social history: Patient is originally from [place], left there in February and has been homeless/travelling since that time. She has remained in the [facility] area since end of Feb/early March, now resides in [place] halfway. She reports having siblings and children in the [place] area. Review of Systems ROS: 10pt was reviewed & negative except for what was stated in HPI & below Physical Exam Temp Pulse Resp BP Pulse Ox 36.7 C 88 20 115/83 H 98 07/24/16 21:40 07/24/16 21:40 07/24/16 21:40 07/24/16 21:40 07/24/16 21:40 Constitutional: no apparent distress Eyes: PERRL Ears, Nose, Mouth, Throat: moist mucous membranes Cardiovascular: regular rate and rhythym Respiratory: no respiratory distress, reduced air movement, other (b/l diffuse inspiratory and expiratory wheezes) Gastrointestinal: normoactive bowel sounds, other (soft, nd, +TTP epigastrium, + guarding, no rigidity or peritoneal signs) Skin: warm Musculoskeletal: full muscle strength Neurologic: AAOx3 Psychiatric: anxious, poor insight Lab Data & Imaging Review 07/24/16 17:37 07/24/16 17:37 WBC 16.03 10^3/uL (3.80-9.50) H 07/24/16 17:37 RBC 4.26 10^6/uL (4.18-5.33) 07/24/16 17:37 Hgb 12.1 g/dL (12.6-16.3) L 07/24/16 17:37 Hct 37.0 % (38.0-47.0) L 07/24/16 17:37 MCV 86.9 fL (81.5-99.8) 07/24/16 17:37 MCH 28.4 pg (27.9-34.1) 07/24/16 17:37 MCHC 32.7 g/dL (32.4-36.7) 07/24/16 17:37 RDW 15.5 % (11.5-15.2) H 07/24/16 17:37 Plt Count 202 10^3/uL (150-400) 07/24/16 17:37 MPV 10.2 fL (8.7-11.7) 07/24/16 17:37 Neut % (Auto) 83.7 % (39.3-74.2) H 07/24/16 17:37 Lymph % (Auto) 13.3 % (15.0-45.0) L 07/24/16 17:37 [place] % (Auto) 2.0 % (4.5-13.0) L 07/24/16 17:37 Eos % (Auto) 0.4 % (0.6-7.6) L 07/24/16 17:37 Baso % (Auto) 0.2 % (0.3-1.7) L 07/24/16 17:37 Nucleat RBC Rel Count 0.0 % (0.0-0.2) 07/24/16 17:37 Absolute Neuts (auto) 13.42 10^3/uL (1.70-6.50) H 07/24/16 17:37 Absolute Lymphs (auto) 2.13 10^3/uL (1.00-3.00) 07/24/16 17:37 Absolute Monos (auto) 0.32 10^3/uL (0.30-0.80) 07/24/16 17:37 Absolute Eos (auto) 0.06 10^3/uL (0.03-0.40) 07/24/16 17:37 Absolute Basos (auto) 0.04 10^3/uL (0.02-0.10) 07/24/16 17:37 Absolute Nucleated RBC 0.00 10^3/uL (0-0.01) 07/24/16 17:37 Immature Gran % 0.4 % (0.0-1.1) 07/24/16 17:37 Immature Gran # 0.06 10^3/uL (0.00-0.10) 07/24/16 17:37 Sodium 139 mEq/L (134-144) 07/24/16 17:37 Potassium 3.4 mEq/L (3.5-5.2) L 07/24/16 17:37 Chloride 108 mEq/L (97-110) 07/24/16 17:37 Carbon Dioxide 21 mEq/l (22-31) L 07/24/16 17:37 Anion Gap 10 mEq/L (8-16) 07/24/16 17:37 BUN 14 mg/dL (7-23) 07/24/16 17:37 Creatinine 0.6 mg/dL (0.6-1.0) 07/24/16 17:37 Estimated GFR > 60 07/24/16 17:37 Glucose 98 mg/dL (70-100) 07/24/16 17:37 Calcium 8.9 mg/dL (8.5-10.4) 07/24/16 17:37 Visualized and Interpreted Chest x-ray results: Yes Chest X-Ray results: infiltrate Assessment & Plan Assessment: Acute hypoxemic respiratory failure secondary to acute exacerbation of COPD in the setting of chronic b/l pulmonary infiltrates. It's unclear if she truly has another bacterial infection. She is afebrile here, though WBC's are elevated. Differential is broad for her chronic infiltrates including eosinophilic PNA, TOE FORMER STITCHDOWNS, sarcoidosis, drug reaction, pneumonitis. Case discussed with ID, who will consult tomorrow. -BCx's and sputum cultures sent -she received Ceftriaxone in ED. Will add Azithromycin. -repeat non-con chest CT -Plan for q4h duonebs, supplemental O2 for COPD component -recommend pulmonary consult in am for possible bronch -defer steroids for now. pt agreeable to bronchoscopy and starting steroids now could skew results if she has an eosinophilic process -send respiratory viral panel -urine drug screen Abdominal pain - pt gives h/o hernia. Pain out of proportion to exam. -check CT abd Anxiety / PTSD - cont prn vistaril, one time dose of ativan to pre-treat prior to CT Homelessness - lives at [facility]. -CM consult DVT PPLX - Lovenox Full code Dispo - inpt, will likely require >48 hrs hospitalization for ongoing workup and management of her hypoxemia and b/l pulmonary infiltrates
[2016-07-24] MEDS: METHOCARBAMOL 500 MG TAB PO SCH (23:04)
[2016-07-24] MEDS: AZITHROMYCIN 250 MG TAB PO SCH (23:04)
[2016-07-24] MEDS: ONDANSETRON DISINTEGRATING 4 MG TAB PO PRN (23:04)
[2016-07-24] MEDS: traMADol 50 MG TAB PO PRN (23:04)
[2016-07-25] MEDS: IPRATROPIUM/ALBUTEROL 3 ML DEYVIAL IH SCH ×7 (01:50→21:42)
[2016-07-25 02:16] LABS: % IMMATURE GRANULYOCYTES 0.3 % (0.0-1.1); ABSOLUTE IMMATURE GRANULOCYTES 0.04 10^3/uL (0.00-0.10); ADD DIFF? NO; ADD MORPH? NO; ADD SCAN? NO; ATYPICAL LYMPHOCYTE FLAG 0 (0-99); FRAGMENT RBC FLAG 0 (0-99); HEMATOCRIT 36.4 % (38.0-47.0); HEMOGLOBIN 12.1 g/dL (12.6-16.3); LEFT SHIFT FLG 10 (0-99); LIPEMIA HEMOLYSIS FLAG 80 (0-99); MEAN CELL HEMOGLOBIN 28.7 pg (27.9-34.1); MEAN CELL HEMOGLOBIN CONCENTR. 33.2 g/dL (32.4-36.7); MEAN CELL VOLUME 86.3 fL (81.5-99.8); PLATELET CLUMPS FLAG 0 (0-99); PLATELET COUNT 354 10^3/uL (150-400); RED BLOOD CELL COUNT 4.22 10^6/uL (4.18-5.33); RED CELL DISTRIBUTION WIDTH 15.6 % (11.5-15.2)
[2016-07-25 02:29] LABS: ANION GAP 9 mEq/L (8-16); CALCIUM 8.8 mg/dL (8.5-10.4); CARBON DIOXIDE 21 mEq/l (22-31); CHLORIDE 109 mEq/L (97-110); CREATININE 0.6 mg/dL (0.6-1.0); GLOMERULAR FILTRATION RATE > 60; GLUCOSE 96 mg/dL (70-100); SODIUM 139 mEq/L (134-144)
[2016-07-25 02:45] LABS: PHENCYCLIDINE URINE BCH 17 ng/ml (NEGATIVE); PHENCYCLIDINE URINE BCH NEGATIVE (NEGATIVE); TETRAHYDROCANNABINOL URINE < 5 ng/mL (NEGATIVE); TETRAHYDROCANNABINOL URINE NEGATIVE (NEGATIVE)
--- NOTE | 2016-07-25 11:25 | PCMIDPN ---
Assessment/Plan: Assessment: Bilateral multifocal infiltrates. Patient had a similar appearing chest CT scan a few months ago when she presented with clear influenza B. Those infiltrates could have been correctly associated with viral pneumonia however I would have suspected that those would be resolved at this point. Given that they are not this is suspicious for an underlying chronic condition of the lungs that was acutely worsened by influenza B in May. Agree with bronchoscopy and biopsy. Patient is on azithromycin and she has a negative respiratory panel PCR. This panel includes both mycoplasma and Chlamydia so it is unclear what we are covering with the azithromycin at this point. Would discontinue and observe. Plan: 1. Agree with bronchoscopy today. 2. Would discontinue azithromycin and observe. 3. Follow up on pathology results. 4. Follow clinical course. 07/25/16 16:45 Subjective: Patient is resting in her hospital bed. She states that after her discharge a couple of months ago on Tamiflu she felt better for a number of weeks but has never retained normal breathing status. She attributes that to the weather here in [place]. Objective: azithromycin #3 Vital Signs Temp Pulse Resp BP Pulse Ox 36.9 C 75 20 89/52 L 97 07/25/16 04:00 07/25/16 04:00 07/25/16 04:00 07/25/16 04:00 07/25/16 04:00 Microbiology 07/25/16 01:24 - Final Sputum, Expectorated 07/25/16 01:35 Respiratory Panel (PCR) - Final Nasal, Sinus - Swab No Organism Detected Laboratory Results 07/25/16 01:42 07/25/16 01:42 07/24/16 07/25/16 07/26/16 05:59 05:59 05:59 Intake Total 500 Balance 500 - Physical Exam General Appearance: WD/WN, alert, no apparent distress, non-toxic Respiratory: respiratory distress, crackles, No lungs clear Cardiac/Chest: regular rate, rhythm, No tachycardia Skin: normal color, warm/dry, No rash Neuro/Psych: alert, normal mood/affect, oriented x 3 ICD10 Worksheet Patient Problems: Problems Problem Status Onset Hypoxia Acute Pneumonia Acute Sepsis Acute
--- NOTE | 2016-07-25 12:49 | HOSPPROG ---
Hospitalist Progress Note Assessment/Plan: DIAGNOSES: -Acute hypoxemic respiratory failure -COPD exacerbations -History of chronic pulmonary infiltrates -Nausea, uncertain etiology PLANS: -Add antiemetic - continue current treatment for her respiratory symptoms -Await Infectious Disease evaluation and opinion SUBJECTIVE: complains of significant nausea any time she stands up or walks, which causes her to cough and makes her feel more short of breath No chest pain abdominal pain No symptoms of fever OBJECTIVE Vitals reviewed: stable without fever Exam: alert oriented skin warm dry color ok resps mildly labored at rest on oxygen lungs very diminished BSs with some end-expiratory wheeze heart regular abd soft nondistended nontender, bowel sounds present limbs warm, no edema iv site ok respiratory viral panel negative Cultures all pending with no growth so far Objective: Vital Signs Temp Pulse Resp BP Pulse Ox 37.1 C 79 20 112/74 85 L 07/25/16 12:00 07/25/16 12:00 07/25/16 12:00 07/25/16 12:00 07/25/16 12:02 Microbiology 07/25/16 01:24 - Final Sputum, Expectorated 07/25/16 01:35 Respiratory Panel (PCR) - Final Nasal, Sinus - Swab No Organism Detected Laboratory Results 07/25/16 01:42 07/25/16 01:42 07/24/16 07/25/16 07/26/16 06:59 06:59 06:59 Intake Total 500 Balance 500 ICD10 Worksheet Patient Problems: Problems Problem Status Onset Hypoxia Acute Pneumonia Acute Sepsis Acute
[2016-07-25] MEDS: ONDANSETRON DISINTEGRATING 4 MG TAB PO PRN (12:59)
[2016-07-25] MEDS: ACETAMINOPHEN 325 MG TAB PO PRN (13:55)
[2016-07-25] MEDS: hydrOXYzine HCL 50 MG TAB PO PRN (13:55)
[2016-07-25] MEDS: PANTOPRAZOLE SODIUM 40 MG TAB PO SCH ×2 (15:30→20:17)
--- NOTE | 2016-07-25 15:43 | CPEKG ---
Heart Rate: 73 RR Interval: 822 P-R Interval: 196 QRSD Interval: 102 QT Interval: 400 QTC Interval: 441 P [place]: 16 QRS [place]: -65 T Wave [place]: 36 EKG Severity - ABNORMAL ECG - EKG Impression: SINUS RHYTHM EKG Impression: CONSIDER INFERIOR INFARCT, AGE INDETERMINATE EKG Impression: BORDERLINE R WAVE PROGRESSION, ANTERIOR LEADS Electronically Signed By: Connor Farmer 26-Jul-2016 07:51:32
[2016-07-25] MEDS: LORazepam 1 MG TAB PO PRN (20:15)
[2016-07-25] MEDS: METHOCARBAMOL 500 MG TAB PO SCH ×3 (20:16→20:18)
[2016-07-25] MEDS: ENOXAPARIN 40 MG/0.4 ML SYR SC SCH (20:17)
[2016-07-25] MEDS: AZITHROMYCIN 250 MG TAB PO SCH (20:19)
[2016-07-25] MEDS: traMADol 50 MG TAB PO PRN (20:21)
[2016-07-26] MEDS: IPRATROPIUM/ALBUTEROL 3 ML DEYVIAL IH SCH ×6 (01:29→21:59)
[2016-07-26] MEDS: METHOCARBAMOL 500 MG TAB PO SCH ×3 (10:34→21:12)
[2016-07-26] MEDS: PANTOPRAZOLE SODIUM 40 MG TAB PO SCH ×2 (10:34→21:12)
[2016-07-26] MEDS: ENOXAPARIN 40 MG/0.4 ML SYR SC SCH (10:35)
--- NOTE | 2016-07-26 10:38 | PCMIDPN ---
Assessment/Plan: Assessment/Plan: 1. Bilateral Multifocal infiltrates: - Uncertain in etiology. - Recent influenza B three months ago, with worsening infiltrates. Did also receive 7 days of levaquin at that time as well. -For bronchoscopy today per previous notes. -Coccidio Ab pending. PReviously had histo, legionella, strep, HIV, DAMARIS studies which are negative. - admits to gerd and occasional aspiration of food. - will check ANCA, KRISTEL, crypto to work up. MEds off antibiotics. Subjective: Afebrile. Still with coughing and phelgm. denies coughing up blood. stays at a long-term. Also c/o epigastric discomfort, acid reflux and nausea. She admits to some anxiety this morning related to nausea and epigastric discomfort. denies diarrhea. Objective: Vital Signs Temp Pulse Resp BP Pulse Ox 36.9 C 82 17 90/52 L 93 07/26/16 07:17 07/26/16 10:02 07/26/16 10:02 07/26/16 07:17 07/26/16 10:02 Microbiology 07/25/16 01:24 - Final Sputum, Expectorated 07/25/16 01:35 Respiratory Panel (PCR) - Final Nasal, Sinus - Swab No Organism Detected Laboratory Results 07/25/16 01:42 07/25/16 01:42 07/25/16 07/26/16 07/27/16 05:59 05:59 05:59 Intake Total 500 1240 Output Total 700 Balance 500 540 - Physical Exam General Appearance: alert, other (coughing) Respiratory: coarse breath sounds Cardiac/Chest: regular rate, rhythm Extremities: No swelling Abdomen: normal bowel sounds, soft, tender (mild in epigastric region), No distended Skin: No erythema ICD10 Worksheet Patient Problems: Problems Problem Status Onset Hypoxia Acute Pneumonia Acute Sepsis Acute
[2016-07-26] MEDS: traMADol 50 MG TAB PO PRN ×2 (10:54→21:12)
[2016-07-26] MEDS: hydrOXYzine HCL 50 MG TAB PO PRN ×2 (10:55→14:44)
[2016-07-26] MEDS: ONDANSETRON DISINTEGRATING 4 MG TAB PO PRN (10:55)
[2016-07-26] MEDS: ACETAMINOPHEN 325 MG TAB PO PRN (14:44)
--- NOTE | 2016-07-26 17:24 | GCON ---
[f rep st] CONSULTATION PULMONARY CONSULTATION DATE OF CONSULTATION: 07/26/2016 REASON FOR CONSULTATION: Pulmonary infiltrates. HISTORY: The patient is a 51-year-old with an underlying history of COPD, smoking, and homelessness , who was admitted from the emergency department 2 days ago with fever and shortness of breath. CT scan of the chest showed bilateral patchy pulmonary infiltrates, waxing and waning in all lung field s compared to a CT scan done on a previous admission with similar symptoms and findings approximatel y 3 months ago. She was seen by Dr. Junior from our service at that time and refused bronchoscopy. She was positive for influenza B on that admission and was treated with Tamiflu as well as Levaquin. She has no history of inflammatory lung disease or collagen vascular disease. Workup has been neg ative regarding DAMARIS. HIV testing has been negative along with serology for fungal organisms. She i s being seen by Infectious Disease. She does live at the skilled nursing. She states that other individuals in the skilled nursing have been sick. She also states that there may be some mold in the skilled nursing. She does not work with birds. She is smok ing relatively minimally at this time but does continue to smoke. She does not do other drugs, othe r inhalants, vapors, etc. She has no exposures to birds, does not work with plants, does not use a hot tub, etc. She does complain of some shortness of breath. She is not bringing up any sputum cur rently. She denies any chest pain. She does carry the diagnosis of COPD. She is on albuterol as a n outpatient. She was started on Levaquin prior to coming in. In the emergency department, she was in no respiratory distress and breath sounds were reported as normal. She did have some nausea and vomiting prior to her admission and reported fevers to 102 at home. She was afebrile in the emerge ncy department. White blood cell count was 16,000. PAST MEDICAL HISTORY: Remarkable for COPD, a hiatal hernia with some gastroesophageal reflux and po ssibly some intermittent swallowing dysfunction. There is a history of TBI in 2011, memory deficits and anxiety. SOCIAL HISTORY: The patient is from [place]. She has been here since March and is living in [facility], waiting on an apartment. She smokes cigarettes, less than a half a pack per day. She d enies alcohol or drug use. She has no family in this area. Her parents are . Apparently t here are children in [place]? FAMILY HISTORY: Dementia and emphysema. REVIEW OF SYSTEMS: A 10-point review of systems is negative. She denies heart disease, thromboembo lic disease, kidney disease, exposure to individuals with known tuberculosis, etc. PHYSICAL EXAMINATION: GENERAL: Physical examination reveals a pleasant woman who is in no apparent distress. She is sitting in a chair and appears comfortable. Oxygen is in place at 1 L. VITAL SI GNS: She is afebrile and has been afebrile since admission. Respiratory rate is 18. Blood pressur e is approximately 100/70, heart rate 85 and regular. HEENT: Unremarkable for lymphadenopathy or t hyromegaly. There is no jugular venous distention. Mucous membranes are moist. There is no obviou s pharyngitis. CHEST: Reveals somewhat diminished breath sounds bilaterally with some vague rales bilaterally at the lateral bases. There are no rhonchi, few wheezes. Expiratory phase is mildly pr olonged. HEART: Regular in rate and rhythm. Heart tones are somewhat distant. There is a soft sy stolic murmur, no gallop. P2 appears normal. ABDOMEN: Soft, nontender. Bowel sounds are present. EXTREMITIES: Without significant edema, cords or tenderness. NEUROLOGIC: Nonfocal. She is orie nted. DATABASE: CT scan is as outlined above with multifocal patchy alveolar/ground-glass infiltrates, in somewhat different locations compared to her CT scan approximately 3 months ago. White blood cell count currently is 13,000, hematocrit 36, platelets are normal. Chemistries are within normal limit s, troponin negative. A number of serologies are pending. Respiratory viral panel is negative. Bl ood cultures are pending. A sputum culture appears to be mostly oral contaminated. ASSESSMENT: Bilateral pulmonary infiltrates. These are atypical. They may be associated with an a typical pneumonia. However, other diagnosis such as bronchiolitis obliterans with organizing pneumo adeline/cryptogenic organizing pneumonia, hypersensitivity pneumonitis, eosinophilic pneumonia, or other inflammatory lung disorders is possible. Aspiration is also possible with recurrent areas of patch y pneumonitis. The patient was not agreeable to bronchoscopy previously but seems to be agreeable t o this now. She is on no antibiotics at this time and no steroids. She was on Levaquin prior to he r admission. PLAN AND RECOMMENDATIONS: Continued observation. Withholding antibiotics and steroids is recommend ed. A barium swallow will be ordered looking for aspiration as well as significant reflux. Enoxapa rin will be held. She will be made n.p.o. tomorrow morning and bronchoscopy will be arranged, with biopsies, for the afternoon. Further plans and recommendations will be made based on her progress and the findings of pending emma dies. /[id number]/MODL
--- NOTE | 2016-07-26 17:56 | HOSPPROG ---
Hospitalist Progress Note Assessment/Plan: DIAGNOSES: -Acute hypoxemic respiratory failure -COPD exacerbations -History of chronic pulmonary infiltrates -Nausea, uncertain etiology PLANS: -Continue antiemetic -continue current treatment for her respiratory symptoms -the patient was seen by Dr. Alex Garcia at my request today. He has ordered bronchoscopy for tomorrow morning -Barium swallow study to further assess her epigastric and nausea symptoms SUBJECTIVE: Continued symptoms of dyspnea, cough, nausea and epigastric fullness and discomfort are present. No change in any of symptoms and no new symptoms OBJECTIVE Vitals reviewed: stable without fever Exam: alert oriented skin warm dry color ok resps mildly labored at rest on oxygen lungs very diminished BSs with some end-expiratory wheeze heart regular abd soft nondistended nontender, bowel sounds present limbs warm, no edema iv site ok Objective: Vital Signs Temp Pulse Resp BP Pulse Ox 36.9 C 101 H 18 93/67 L 94 07/26/16 15:20 07/26/16 15:20 07/26/16 15:20 07/26/16 15:20 07/26/16 15:20 Microbiology 07/25/16 01:24 - Final Sputum, Expectorated Laboratory Results 07/25/16 01:42 07/25/16 01:42 07/25/16 07/26/16 07/27/16 06:59 06:59 06:59 Intake Total 900 840 Output Total 700 Balance 900 140 ICD10 Worksheet Patient Problems: Problems Problem Status Onset Hypoxia Acute Pneumonia Acute Sepsis Acute
[2016-07-26] MEDS: LORazepam 1 MG TAB PO PRN (21:12)
[2016-07-27] MEDS: IPRATROPIUM/ALBUTEROL 3 ML DEYVIAL IH SCH ×6 (01:56→21:35)
[2016-07-27] MEDS: traMADol 50 MG TAB PO PRN ×2 (06:05→18:33)
[2016-07-27] MEDS: METHOCARBAMOL 500 MG TAB PO SCH ×3 (07:58→22:06)
[2016-07-27] MEDS: PANTOPRAZOLE SODIUM 40 MG TAB PO SCH ×2 (07:58→19:41)
[2016-07-27] MEDS: hydrOXYzine HCL 50 MG TAB PO PRN ×2 (08:09→18:33)
[2016-07-27] MEDS ORDERED: ALBUTEROL 3 ML DEYVIAL ONE (14:10)
[2016-07-27] MEDS ORDERED: LIDOCAINE 2% JELLY 5 ML TUBE ONE (14:10)
[2016-07-27] MEDS ORDERED: fentaNYL 100 MCG/2 ML INJ ONE ×2 (14:15→18:05)
[2016-07-27] MEDS ORDERED: MIDAZOLAM 2 MG/2 ML VIAL ONE ×2 (14:15)
[2016-07-27] MEDS ORDERED: LIDOCAINE 1% 300 MG/30 ML SDV ONE (14:15)
[2016-07-27] MEDS ORDERED: LIDOCAINE HCL 4% TOPICAL SOLN 50ML ONE (14:52)
--- NOTE | 2016-07-27 18:41 | HOSPPROG ---
Hospitalist Progress Note Assessment/Plan: DIAGNOSES: -Acute hypoxemic respiratory failure -COPD exacerbations -History of chronic pulmonary infiltrates -Nausea, uncertain etiology PLANS: -Continue antiemetic -continue current treatment for her respiratory symptoms - will await pending serology tests and cultures -I will discuss further for Dr. Garcia to determine any other plans at this time. SUBJECTIVE: I assessed the patient at bedside both before and after her attempted bronchoscopy. Essentially no change in her respiratory or epigastric symptoms today No other new symptoms Bronchoscopy was attempted today. Despite 8 mg of Versed and large doses of fentanyl, adequate sedation was not able to be achieved to proceed with the procedure which was aborted. Have not spoken directly with Dr. Garcia at this time but it sounds like we did not really even get a start and did not likely gain any new clinical information. OBJECTIVE Vitals reviewed: stable without fever Exam: alert oriented skin warm dry color ok resps mildly labored at rest on oxygen lungs very diminished BSs with some end-expiratory wheeze heart regular abd soft nondistended nontender, bowel sounds present limbs warm, no edema iv site ok Objective: Vital Signs Temp Pulse Resp BP Pulse Ox 36.8 C 76 16 111/73 92 07/27/16 18:30 07/27/16 18:30 07/27/16 18:30 07/27/16 18:30 07/27/16 18:30 Microbiology 07/25/16 01:24 - Final Sputum, Expectorated Sputum Culture - Final Laboratory Results 07/25/16 01:42 07/25/16 01:42 07/26/16 07/27/16 07/28/16 06:59 06:59 06:59 Intake Total 840 900 25 Output Total 700 500 Balance 140 400 25 ICD10 Worksheet Patient Problems: Problems Problem Status Onset Hypoxia Acute Pneumonia Acute Sepsis Acute
[2016-07-27] MEDS: LORazepam 1 MG TAB PO PRN (19:41)
[2016-07-27] MEDS: OXYCODONE/APAP 5/325 TAB PO PRN (19:41)
[2016-07-27] MEDS: oxyCODONE IR 5 MG TAB PO PRN (21:27)
--- NOTE | 2016-07-27 22:07 | GPN ---
[f rep st] PROCEDURE NOTE PROCEDURE: Bronchoscopy: Attempted, unsuccessful. INDICATION FOR PROCEDURE: Diffuse bilateral waxing and waning pulmonary infiltrates. DESCRIPTION OF PROCEDURE: The procedure was done in the intensive care unit in a negative pressure room. Informed consent was obtained from the patient. Adequate time-out was performed. 1% lidocai ne was used to anesthetize the posterior oropharynx. After this, IV Versed and fentanyl were given. A total of 8 mg of Versed and 200 mcg of fentanyl were given over approximately a 15 minute period of time. The patient initially appeared to get somewhat sleepy but would not tolerate the bronchos cope in her oropharynx or lidocaine to the vocal cords or trachea without sitting up and trying to r ip the tube out. Further administration of Versed and fentanyl did not result in increased sedation . The patient did not want to continue with the procedure and further medications were not indicate d. There was no evidence of IV infiltration but deep infiltration perhaps cannot be ruled out. At leas t 6 mg of Versed and 150 mcg of fentanyl were administered intravenously with good flow to the patie nt's IV. The last 2 mg of Versed and 50 mcg of fentanyl were more questionable as the IV did not ap pear to be working at this time. No further attempts to sedate her or continue with the bronchoscopy were performed. Vital signs and oxygen saturation remained normal throughout the attempted procedure. The patient is being returned to endoscopy to be recovered postoperatively for at least 1 hour befor e sending her back upstairs. If a tissue diagnosis is required than general anesthesia will need to be performed for the bronchos copy, or perhaps open lung biopsy? /[id number]/MODL
[2016-07-28] MEDS: traMADol 50 MG TAB PO PRN ×2 (00:30→07:47)
[2016-07-28] MEDS: METHOCARBAMOL 500 MG TAB PO SCH ×4 (01:05→20:37)
[2016-07-28] MEDS: hydrOXYzine HCL 50 MG TAB PO PRN ×3 (01:07→15:31)
[2016-07-28] MEDS: oxyCODONE IR 5 MG TAB PO PRN ×5 (01:07→19:13)
[2016-07-28] MEDS: OXYCODONE/APAP 5/325 TAB PO PRN (02:14)
[2016-07-28] MEDS: IPRATROPIUM/ALBUTEROL 3 ML DEYVIAL IH SCH ×6 (02:16→22:16)
[2016-07-28] MEDS: PANTOPRAZOLE SODIUM 40 MG TAB PO SCH ×2 (07:47→19:14)
[2016-07-28 09:44] LABS: ANGIOTENSIN CONVERTING ENZYME 28 U/L (8 - 53)
[2016-07-28] MEDS: ACETAMINOPHEN 325 MG TAB PO PRN (14:43)
--- NOTE | 2016-07-28 14:57 | HOSPPROG ---
Hospitalist Progress Note Assessment/Plan: DIAGNOSES: -Acute hypoxemic respiratory failure -COPD exacerbations -History of chronic pulmonary infiltrates -Acute Incarceration of periumbilical hernia PLANS: -I will repeat CXR now to look for any improvement -I will review her case with Dr Jose vincent after that -She will need surgery for her hernia, but need to make sure that anesthesia will be safe from a resp/pulm perspective -await serologies for evaluation of her lungs; ? further future attempt at broch , ? with general anesthesia SUBJECTIVE: still w some dyspnea, very hard to clarify whether she feels less dyspneic over time or not she still c/o epigastric pain and difficulty eating but today mentions the pain is worse with movement OBJECTIVE Vitals reviewed: stable without fever Exam: alert oriented skin warm dry color ok resps mildly labored at rest on oxygen lungs very diminished BSs with some end-expiratory wheeze heart regular abd on exam today there is clearly an incarcerated hernia superior to umbilicus that is fairly tender but no discoloration, swelling or heat of the surrounding tissues limbs warm, no edema iv site ok Objective: Vital Signs Temp Pulse Resp BP Pulse Ox 36.9 C 75 18 94/62 L 96 07/28/16 07:30 07/28/16 09:30 07/28/16 09:30 07/28/16 07:30 07/28/16 09:30 Microbiology 07/25/16 01:24 - Final Sputum, Expectorated Sputum Culture - Final Laboratory Results 07/25/16 01:42 07/25/16 01:42 07/27/16 07/28/16 07/29/16 06:59 06:59 06:59 Intake Total 900 375 Output Total 500 Balance 400 375 ICD10 Worksheet Patient Problems: Problems Problem Status Onset Hypoxia Acute Pneumonia Acute Sepsis Acute
--- NOTE | 2016-07-28 16:42 | SOAPPROG ---
SOAP Progress Note Assessment/Plan: Assessment: Bilateral pulmonary infiltrates. Etiology unclear. 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 Unable to perform bronchoscopy yesterday. My feeling is that we should go ahead and treat her with antibiotics will cover atypicals such as Cipro or azithromycin and give her steroids. We can follow her as an outpatient. If the infiltrates come back then biopsy at that time, probably with general anesthesia. COPD: With exacerbation, consistent with bronchitis/bronchopneumonia/ pneumonitis. Umbilical hernia: May need surgery. There are no pulmonary contraindications to this. We could consider going after lung biopsy by bronchoscopy and biopsies during surgery?. Plan: Continue present care for now. Await chest x-ray results from today. I imagine this will show persistent infiltrates. Consider antibiotics and steroids but do not start at this time. Will discuss with hospitalist and Infectious Disease. Discussed with patient. Subjective: Doing okay. Complains of back pain. Denies significant shortness of breath. She is coughing and bringing up some yellow phlegm. Objective: Vital Signs Temp Pulse Resp BP Pulse Ox 36.7 C 75 18 101/66 96 07/28/16 16:00 07/28/16 16:10 07/28/16 16:10 07/28/16 16:00 07/28/16 16:10 Microbiology 07/25/16 01:24 - Final Sputum, Expectorated Sputum Culture - Final Laboratory Results 07/25/16 01:42 07/25/16 01:42 07/27/16 07/28/16 07/29/16 05:59 05:59 05:59 Intake Total 900 375 Output Total 500 Balance 400 375 Laboratory Tests 07/26/16 10:00 Proteinase 3 (PR3) < 0.2 Myeloperoxidase Ab <0.2 Cryptococcus Ag Screen Negative Physical Exam - Physical Exam General Appearance: alert, no apparent distress EENT: other (Nasal cannula 2 L) Neck: normal inspection Respiratory: decreased breath sounds, rales (Scattered rales posteriorly and anteriorly), rhonchi (Few with cough), No wheezing Cardiac/Chest: regular rate, rhythm Abdomen: normal bowel sounds, non-tender, soft Skin: normal color, warm/dry Extremities: No pedal edema Neuro/Psych: no motor/sensory deficits, sensory deficit, No cognition abnormalities ICD10 Worksheet Patient Problems: Problems Problem Status Onset Hypoxia Acute Pneumonia Acute Sepsis Acute
--- NOTE | 2016-07-28 17:31 | PCMIDPN ---
Assessment/Plan: Assessment: Bilateral multifocal infiltrates. Bronchoscopy failed secondary to patient intolerance. They may have to do a bronchoscopy and biopsy under more complete anesthesia. I do not think this looks infectious. I suspect instead that this may be recurrent aspiration events perhaps increased in likelihood by hiatal hernia. Plan: 1. Observe off antibiotics. 2. Follow clinical course. 07/25/16 16:45 07/28/16 18:08 Subjective: Patient continues to have similar complaints. Some shortness of breath and cough. She did have a mucus plug that she coughed up after returning from attempted bronchoscopy Objective: No antibiotics Vital Signs Temp Pulse Resp BP Pulse Ox 36.7 C 75 18 101/66 96 07/28/16 16:00 07/28/16 16:10 07/28/16 16:10 07/28/16 16:00 07/28/16 16:10 Laboratory Results 07/25/16 01:42 07/25/16 01:42 07/27/16 07/28/16 07/29/16 05:59 05:59 05:59 Intake Total 900 375 Output Total 500 Balance 400 375 - Physical Exam General Appearance: WD/WN, alert, no apparent distress, non-toxic Respiratory: No lungs clear, No normal breath sounds Cardiac/Chest: regular rate, rhythm, No tachycardia Skin: normal color, warm/dry, No rash ICD10 Worksheet Patient Problems: Problems Problem Status Onset Hypoxia Acute Pneumonia Acute Sepsis Acute
[2016-07-28] MEDS: LORazepam 1 MG TAB PO PRN (20:37)
[2016-07-29] MEDS: IPRATROPIUM/ALBUTEROL 3 ML DEYVIAL IH SCH ×4 (06:03→21:36)
[2016-07-29] MEDS: oxyCODONE IR 5 MG TAB PO PRN (06:14)
[2016-07-29] MEDS: hydrOXYzine HCL 50 MG TAB PO PRN (06:14)
[2016-07-29] MEDS: PANTOPRAZOLE SODIUM 40 MG TAB PO SCH ×2 (08:50→21:26)
[2016-07-29] MEDS: traMADol 50 MG TAB PO PRN (08:50)
[2016-07-29] MEDS: METHOCARBAMOL 500 MG TAB PO SCH ×3 (08:51→21:26)
--- NOTE | 2016-07-29 09:06 | PDGENHP ---
History and Physical - Chief Complaint abdominal pain - History of Present Illness 51yo female admitted to the medical service with sabrina pulm infiltrates. Has known umbilical hernia for the past 2-3 years, reducible in the past. Since she has been admitted and coughing states that it has been more painful and incarcerated. Pain is sharp, non-radiating, worse with palpation and 7/10 in intensity. She denies any nausea or vomiting, has had chills. Continues to receive treatment for her pna vs other acute pulm process History Information - Allergies/Home Medication List Allergies/Adverse Reactions: droperidol [From Inapsine] Allergy (Severe, Verified 04/01/16 20:04) SEIZURES haloperidol [From Haldol] Allergy (Severe, Verified 04/01/16 20:04) SEIZURES haloperidol lactate [From Haldol] Allergy (Severe, Verified 04/01/16 20:04) SEIZURES Home Medications: Albuterol [Proventil Inhaler HFA (*)] 1 - 2 puffs IH Q4H 07/24/16 [Last Taken Unknown] Ascorbic Acid [Vitamin C 500 mg (*)] 500 mg PO BID 07/24/16 [Last Taken Unknown] Cholecalciferol Vit D3 [Vitamin D3 (*)] 1,000 units PO DAILY 07/24/16 [Last Taken Unknown] Herbals/Supplements -Info Only 1 ea PO DAILY 07/24/16 [Last Taken 07/24/16] Methocarbamol 500 mg PO TID 07/24/16 [Last Taken 07/21/16] hydrOXYzine HCL [Vistaril] 50 mg PO QID PRN 07/24/16 [Last Taken Unknown] levOFLOXACIN [levAQUIN (*)] 750 mg PO DAILY 07/24/16 [Last Taken 07/24/16] traMADol [Ultram 50 mg (*)] 50 mg PO Q6 PRN 07/24/16 [Last Taken 07/21/16] I have personally reviewed and updated: medical history, surgical history - Past Medical History Additional medical history: COPD. GERD/hiatal hernia. 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 anxiety disorder - Surgical History Reports: cholecystectomy Additional surgical history: partial hysterectomy. cholecystectomy. lipoma resection - Family History Additional family history: mom had dementia. dad had emphysema - Social History Smoking Status: Current every day smoker Tobacco Use: Less than 1 pack/day Alcohol Use: None Drug Use: None Additional social history: Patient is originally from [place], left there in February and has been homeless/travelling since that time. She has remained in the [facility] area since end of Feb/early March, now resides in [facility]. She reports having siblings and children in the [place] area. Review of Systems ROS: 10pt was reviewed & negative except for what was stated in HPI & below Physical Exam Temp Pulse Resp BP Pulse Ox 36.9 C 70 16 105/69 95 07/29/16 08:18 07/29/16 08:18 07/29/16 08:18 07/29/16 08:18 07/29/16 08:18 O2 (L/minute) 2 Constitutional: no apparent distress Eyes: PERRL Ears, Nose, Mouth, Throat: moist mucous membranes Cardiovascular: regular rate and rhythym Respiratory: no respiratory distress, reduced air movement Gastrointestinal: other (tender supraumbilical hernia, attempted to reduce was unsuccessful. No rebound) Skin: warm Musculoskeletal: full muscle strength Neurologic: AAOx3 Psychiatric: interacting appropriately Lymph, Heme, Immunologic: no cervical LAD Lab Data & Imaging Review 07/25/16 01:42 07/25/16 01:42 WBC 13.31 10^3/uL (3.80-9.50) H 07/25/16 01:42 RBC 4.22 10^6/uL (4.18-5.33) 07/25/16 01:42 Hgb 12.1 g/dL (12.6-16.3) L 07/25/16 01:42 Hct 36.4 % (38.0-47.0) L 07/25/16 01:42 MCV 86.3 fL (81.5-99.8) 07/25/16 01:42 MCH 28.7 pg (27.9-34.1) 07/25/16 01:42 MCHC 33.2 g/dL (32.4-36.7) 07/25/16 01:42 RDW 15.6 % (11.5-15.2) H 07/25/16 01:42 Plt Count 354 10^3/uL (150-400) D 07/25/16 01:42 MPV 10.0 fL (8.7-11.7) 07/25/16 01:42 Neut % (Auto) 78.1 % (39.3-74.2) H 07/25/16 01:42 Lymph % (Auto) 17.4 % (15.0-45.0) 07/25/16 01:42 Sharkey % (Auto) 2.9 % (4.5-13.0) L 07/25/16 01:42 Eos % (Auto) 1.1 % (0.6-7.6) 07/25/16 01:42 Baso % (Auto) 0.2 % (0.3-1.7) L 07/25/16 01:42 Nucleat RBC Rel Count 0.0 % (0.0-0.2) 07/25/16 01:42 Absolute Neuts (auto) 10.39 10^3/uL (1.70-6.50) H 07/25/16 01:42 Absolute Lymphs (auto) 2.32 10^3/uL (1.00-3.00) 07/25/16 01:42 Absolute Monos (auto) 0.39 10^3/uL (0.30-0.80) 07/25/16 01:42 Absolute Eos (auto) 0.14 10^3/uL (0.03-0.40) 07/25/16 01:42 Absolute Basos (auto) 0.03 10^3/uL (0.02-0.10) 07/25/16 01:42 Absolute Nucleated RBC 0.00 10^3/uL (0-0.01) 07/25/16 01:42 Immature Gran % 0.3 % (0.0-1.1) 07/25/16 01:42 Immature Gran # 0.04 10^3/uL (0.00-0.10) 07/25/16 01:42 Sodium 139 mEq/L (134-144) 07/25/16 01:42 Potassium 4.0 mEq/L (3.5-5.2) 07/25/16 01:42 Chloride 109 mEq/L (97-110) 07/25/16 01:42 Carbon Dioxide 21 mEq/l (22-31) L 07/25/16 01:42 Anion Gap 9 mEq/L (8-16) 07/25/16 01:42 BUN 14 mg/dL (7-23) 07/25/16 01:42 Creatinine 0.6 mg/dL (0.6-1.0) 07/25/16 01:42 Estimated GFR > 60 07/25/16 01:42 Glucose 96 mg/dL (70-100) 07/25/16 01:42 Calcium 8.8 mg/dL (8.5-10.4) 07/25/16 01:42 Troponin I < 0.012 ng/mL (0-0.034) 07/25/16 15:10 Angiotensin Convert Enz 28 U/L (8 - 53) 07/26/16 10:00 Urine Opiates Screen 347 ng/mL (NEGATIVE) 07/25/16 01:48 Urine Barbiturates NEGATIVE ng/mL (NEGATIVE) 07/25/16 01:48 Ur Phencyclidine Scrn NEGATIVE ng/mL (NEGATIVE) 07/25/16 01:48 Ur Amphetamines Screen NEGATIVE ng/mL (NEGATIVE) 07/25/16 01:48 U Benzodiazepines Scrn 393 ng/mL (NEGATIVE) 07/25/16 01:48 Urine Cocaine Screen NEGATIVE ng/mL (NEGATIVE) 07/25/16 01:48 U Marijuana (THC) Screen NEGATIVE ng/mL (NEGATIVE) 07/25/16 01:48 Proteinase 3 (PR3) < 0.2 U 07/26/16 10:00 Myeloperoxidase Ab <0.2 U 07/26/16 10:00 Cryptococcus Ag Screen Negative (Negative) 07/26/16 10:00 Visualized and Interpreted Chest x-ray results: Yes Assessment & Plan Assessment: Hypoxia (Acute) Plan: 51yo F c incarcerated umbilical hernia RBA to surgery discussed. Will plan to proceed to the OR for urgent exploration , reduction and repair. Discussed with IM attending Dr Boothe
[2016-07-29] MEDS ORDERED: BUPIVACAINE 0.5% 30 ML SDV ONE (09:47)
[2016-07-29] MEDS ORDERED: ceFAZolin 2 GM/DEXTROSE 100 ML IV ONE (09:55)
[2016-07-29] MEDS ORDERED: MIDAZOLAM 2 MG/2 ML VIAL ONE ×2 (10:06→11:12)
[2016-07-29] MEDS ORDERED: fentaNYL 100 MCG/2 ML INJ ONE ×2 (10:11→10:44)
[2016-07-29] MEDS ORDERED: PROPOFOL/EMULSION 500 MG/50 ML BOTTLE IV ONE (10:12)
--- NOTE | 2016-07-29 10:48 | HOSPPROG ---
Hospitalist Progress Note Assessment/Plan: DIAGNOSES: -Acute hypoxemic respiratory failure -COPD exacerbations -History of chronic pulmonary infiltrates -Acute Incarceration of periumbilical hernia the cause of her respiratory failure and pulmonary infiltrates remained uncertain. This is her 3rd recent hospitalization for the same syndrome and we have not identified any infectious organisms during any of these episodes. Differential diagnosis could include hypersensitivity, immune related, occult infection, or other. She was unable to tolerate bronchoscopy attempt on July 27. We are hoping to get bronchoscopy under general anesthesia. At this point in terms of her respirations she has improved to requiring only 2 L nasal cannula oxygen and is getting around much better as a much better lung exam. Dr. Garcia does feel that she can tolerate anesthesia for surgery for hernia repair, a nd I would agree with that. PLANS: - I have asked Dr. Wei to see the patient. He has had examined her and was unable to successfully reduce her hernia due to pain and is planning to take her to the operating room today for repair of that hernia -will review with Dr. Garcia to see if he will consider attempting bronchoscopy with biopsy during the anesthesia for her hernia -await serologies for evaluation of her lungs; SUBJECTIVE: still w some dyspnea, but is now on 2 L oxygen, not coughing, and getting around easier than previous she still with marked pain at her supra umbilical hernia, aggravated by any movement or eating or coughing no symptoms of fever OBJECTIVE Vitals reviewed: stable without fever Exam: alert oriented skin warm dry color ok resps mildly labored at rest on oxygen lungs very diminished BSs with some end-expiratory wheeze heart regular abd on exam today there is Still an incarcerated hernia superior to umbilicus that is fairly tender but no discoloration, swelling or heat of the surrounding tissues limbs warm, no edema iv site ok Objective: Vital Signs Temp Pulse Resp BP Pulse Ox 36.9 C 70 16 105/69 95 07/29/16 08:18 07/29/16 08:18 07/29/16 08:18 07/29/16 08:18 07/29/16 08:18 Laboratory Results 07/25/16 01:42 07/25/16 01:42 07/28/16 07/29/16 07/30/16 06:59 06:59 06:59 Intake Total 375 650 Output Total 200 Balance 375 450 ICD10 Worksheet Patient Problems: Problems Problem Status Onset Hypoxia Acute Pneumonia Acute Sepsis Acute
--- NOTE | 2016-07-29 10:58 | POSTOPPROG ---
Post Op Note Date of Operation: 07/29/16 Surgeon: Ferdinand Wei Anesthesiologist: Fransisco Anesthesia: GET(General Endotracheal) Pre-op Diagnosis: Incarcerated umbilical hernia Post-op Diagnosis: Incarcerated incisional hernia Indication: pain Procedure: open umbilical hernia repair Findings: 1.5cm defect, repaired primarily Inf/Abcess present in the surg proc area at time of surgery?: No EBL: Minimal
[2016-07-29] MEDS ORDERED: PROPOFOL 200 MG/20 ML VIAL ONE (11:20)
[2016-07-29] MEDS ORDERED: PROPOFOL/EMULSION 1,000 MG/100 ML BOTTLE IV ONE (11:38)
[2016-07-29] MEDS ORDERED: fentanYL/NACL/100 ML BAG IV ONE (11:40)
--- NOTE | 2016-07-29 11:42 | PDINTPN ---
Dog Trainer Progress Note Assessment/Plan: Assessment: Acute postoperative respiratory insufficiency. Inability to extubate the patient postop secondary to underlying lung disease as well as bronchitis and secretions. Surgery not the issue. Bilateral pulmonary infiltrates. Etiology unclear. 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 Unable to perform bronchoscopy 07/27. Chest x-ray yesterday afternoon showed improving bilateral infiltrates. All serology is negative. Changes may indeed be related to aspiration pneumonitis? Now that she is sedated and on the ventilator I will perform bronchoscopy, send cultures and cytologies from BAL. COPD: With exacerbation, consistent with bronchitis/bronchopneumonia/ pneumonitis. Umbilical hernia: Status post herniorrhaphy. Went well, no issues. DVT prophylaxis: None currently. Will start tomorrow GI prophylaxis: On pantoprazole Metabolic: Lab pending Plan: Continue ventilatory support. The patient will be sedated with propofol and fentanyl. I will keep her on the ventilator at least overnight and assess weaning parameters tomorrow for possible extubation. Bronchoscopy will be done today. Deep cultures will be obtained along with bronchoalveolar lavage for cell count and differential. Antibiotics will be given following this. Bronchodilator therapies will be continued. Lab comma ABG and x-ray will be followed. Discussed with surgery, anesthesia, nursing and respiratory therapy. 45 minutes of critical care time was spent directly with the patient, not including bronchoscopy. Subjective: Return from the OR on the ventilator. Anesthesia could not extubate the patient postoperatively secondary to secretions and hypoxemia. Objective: Vital Signs Temp Pulse Resp BP Pulse Ox 36.9 C 70 16 105/69 95 07/29/16 08:18 07/29/16 08:18 07/29/16 08:18 07/29/16 08:18 07/29/16 08:18 Laboratory Results 07/25/16 01:42 07/25/16 01:42 07/28/16 07/29/16 07/30/16 05:59 05:59 05:59 Intake Total 375 400 250 Output Total 200 Balance 375 400 50 Lab, radiologic studies, blood gas: Pending Physical Exam - Physical Exam General Appearance: no apparent distress, unresponsive (Sedated postoperative), No alert EENT: PERRL/EOMI, ET tube Neck: normal inspection (No JVD) Respiratory: lungs clear (Anteriorly), decreased breath sounds (At bases), rales (Few scattered rales), rhonchi (Rare), No wheezing Cardiac/Chest: regular rate, rhythm Abdomen: soft, No normal bowel sounds (Decreased, present) Pelvic Exam: other (No Vegas catheter. May need this as I expect her to be on the ventilator overnight or longer) Skin: normal color, warm/dry Extremities: No pedal edema Neuro/Psych: no motor/sensory deficits (Can't assess), cognition abnormalities ( Can't assess) ICD10 Worksheet Patient Problems: Problems Problem Status Onset Pneumonia Acute Hypoxia Acute Sepsis Acute
[2016-07-29] MEDS ORDERED: LIDOCAINE 1% 300 MG/30 ML SDV MISC ONE (11:44)
[2016-07-29] MEDS ORDERED: LIDOCAINE 2% JELLY 5 ML TUBE TP ONE (11:44)
[2016-07-29] MEDS ORDERED: ALBUMIN 5% 500 ML IV ONE (12:09)
[2016-07-29] MEDS: LORazepam 2 MG/ML INJ IVP PRN ×4 (12:15→19:07)
[2016-07-29] MEDS: PROPOFOL/EMULSION 100 ML IV SCH ×2 (12:17→17:37)
[2016-07-29] MEDS: ERTAPENEM 1 GM in NS 100 ML IV SCH (12:17)
[2016-07-29] MEDS: fentaNYL/NACL 100 ML IV SCH ×2 (12:17→17:37)
[2016-07-29] MEDS ORDERED: MIDAZOLAM 2 MG/2 ML VIAL IVP ONE (12:30)
[2016-07-29] MEDS: AZITHROMYCIN IV 500 MG in D5W 250 ML IV SCH (12:34)
[2016-07-29 13:28] LABS: % IMMATURE GRANULYOCYTES 0.4 % (0.0-1.1); ABSOLUTE IMMATURE GRANULOCYTES 0.03 10^3/uL (0.00-0.10); ADD DIFF? NO; ADD MORPH? NO; ADD SCAN? NO; ATYPICAL LYMPHOCYTE FLAG 10 (0-99); FRAGMENT RBC FLAG 0 (0-99); HEMATOCRIT 30.5 % (38.0-47.0); HEMOGLOBIN 9.9 g/dL (12.6-16.3); LEFT SHIFT FLG 10 (0-99); LIPEMIA HEMOLYSIS FLAG 80 (0-99); MEAN CELL HEMOGLOBIN 28.8 pg (27.9-34.1); MEAN CELL HEMOGLOBIN CONCENTR. 32.5 g/dL (32.4-36.7); MEAN CELL VOLUME 88.7 fL (81.5-99.8); MEAN PLATELET VOLUME 9.4 fL (8.7-11.7); PLATELET CLUMPS FLAG 0 (0-99); PLATELET COUNT 299 10^3/uL (150-400); RED BLOOD CELL COUNT 3.44 10^6/uL (4.18-5.33); RED CELL DISTRIBUTION WIDTH 15.2 % (11.5-15.2)
[2016-07-29 13:42] LABS: ALANINE AMINOTRANSFERASE 137 IU/L (9-52); ALBUMIN 3.4 g/dL (3.5-5.0); ALKALINE PHOSPHATASE 194 IU/L (38-126); ANION GAP 8 mEq/L (8-16); ASPARTATE AMINOTRANSFERASE 282 IU/L (14-46); BILIRUBIN,TOTAL 0.8 mg/dL (0.1-1.4); CALCIUM 8.2 mg/dL (8.5-10.4); CARBON DIOXIDE 23 mEq/l (22-31); CHLORIDE 105 mEq/L (97-110); CREATININE 0.5 mg/dL (0.6-1.0); GLOMERULAR FILTRATION RATE > 60; GLUCOSE 102 mg/dL (70-100); POTASSIUM 4.1 mEq/L (3.5-5.2); SODIUM 136 mEq/L (134-144); TOTAL PROTEIN 6.1 g/dL (6.3-8.2)
[2016-07-29] MEDS ORDERED: ALBUTEROL 60 PUFFS/8 GM MDI IH SCH (14:00)
[2016-07-29] MEDS ORDERED: ALBUTEROL 200 PUFFS/18 GM MDI IH SCH (14:00)
--- NOTE | 2016-07-29 14:44 | GPN ---
[f rep st] PROCEDURE NOTE DATE OF PROCEDURE: 07/29/2016 REASON FOR PROCEDURE: Bilateral pulmonary infiltrates of unknown etiology. PROCEDURE NOTE: The procedure was done in the intensive care unit. N95 masks were worn. Consent f or the procedure had been discussed with the patient a day prior and was to be done in the operating room timed with her hernia repair. Appropriate time-out was performed. Surgery ended up being earlier than anticipated. The patient could not be extubated following the p rocedure and was sent to the intensive care unit on the ventilator. She was stabilized, and broncho scopy was then performed. Versed 2 mg were used in addition to the propofol and fentanyl that she was getting for ventilatory protocols. The fiberoptic bronchoscope was passed via an adapter on the end of the patient's endotracheal tube and in the lower tracheobronchial tree bilaterally. There was a moderate amount of somewhat thick p urulent secretions, removed with suction and washes. Following this, more formal bronchoalveolar la vage was performed from the right upper lobe and left lower lobe. 80 mL (40 mL in each lobe) was in stilled. Approximately half the instillate came back. Anatomy was normal bilaterally. There were no endobronchial lesions and no evidence of extrinsic compression. Appropriate samples were sent: Cultures from the wash and cell count and differential from the lava ge. The patient tolerated the procedure well. She became hypoxemic to possibly 60% briefly early on in the procedure, but this may have been artifactual as her hand with the pulse oximeter on it, was nay nched. In any case, additional oxygen was provided at 100% and saturations remained in the high 90s for the rest of the procedure. Vital signs remained stable. There were no complications. /[id number]/MODL
[2016-07-29 16:13] LABS: BODY FLUID CELL COUNT OTHER BODY FLUID
--- NOTE | 2016-07-29 16:57 | PCMIDPN ---
Assessment/Plan: Assessment/Plan: * Bilateral multifocal pulmonary infiltrates: Infectious versus noninfectious etiology. Patient underwent bronchoscopy today with thick secretions noted. Now on empiric ertapenem and azithromycin pending further culture data. Overall chest x-ray has improved. Await BAL studies. Findings and plan reviewed with Dr. Garcia. 07/29/16 16:54 Subjective: Intubated after hernia repair and bronchoscopy. Objective: Vital Signs Temp Pulse Resp BP Pulse Ox 37.1 C 61 16 111/83 H 100 07/29/16 16:00 07/29/16 16:00 07/29/16 16:00 07/29/16 16:00 07/29/16 16:00 Laboratory Results 07/29/16 13:20 07/29/16 13:20 07/28/16 07/29/16 07/30/16 05:59 05:59 05:59 Intake Total 208 560 5397 Output Total 200 Balance 117 036 4516 Ertapenem # 1 Azithromycin # 1 BAL Gram stain and culture pending Respiratory pathogen panel by PCR negative Laboratory Tests 07/26/16 10:00 Proteinase 3 (PR3) < 0.2 Myeloperoxidase Ab <0.2 Cryptococcus Ag Screen Negative - Physical Exam General Appearance: other (Intubated, sedated) EENT: ET Tube, NG Tube, No scleral icterus Respiratory: other (Few coarse crackles on left) Cardiac/Chest: regular rate, rhythm Extremities: No inflammation Skin: No embolic lesions ICD10 Worksheet Patient Problems: Problems Problem Status Onset Hypoxia Acute Pneumonia Acute Sepsis Acute
[2016-07-29] MEDS: ALBUTEROL 200 PUFFS/18 GM MDI IH SCH ×2 (17:25→20:55)
[2016-07-29] MEDS: FAMOTIDINE 20 MG/NACL 50 ML IV SCH (21:31)
[2016-07-29] MEDS: CHLORHEXIDINE GLUCONATE 15 ML UDL PO SCH (21:31)
[2016-07-29 21:33] LABS: BICARBONATE 23 mEq/L (22-26); MEASURED OXYGEN SATURATION 99 % (92-95); PCO2 34 mmHg (34-38); PO2 128 mmHg (65-75); TCO2 24 mEq/L (23-27)
[2016-07-29 21:34] LABS: SIMV YES
[2016-07-29 21:35] LABS: END TIDAL CO2 33; O2 CONCENTRATIION 40 % (0-100); P/F RATIO 320 RATIO; PATIENT RATE 16; PRESSURE SUPPORT 10
--- NOTE | 2016-07-29 22:01 | GOP ---
[f rep st] OPERATIVE REPORT DATE OF OPERATION: 07/29/2016 SURGEON: Ferdinand Wei MD TEACHING MANAGER: None. ANESTHESIA: General endotracheal. ANESTHESIOLOGIST: Dr. Moody PREOPERATIVE DIAGNOSIS: Incarcerated umbilical hernia. POSTOPERATIVE DIAGNOSIS: Incarcerated incisional hernia. PROCEDURE PERFORMED: Incarcerated incisional hernia repair primarily. FINDINGS: Port site from previous laparoscopic cholecystectomy appeared to have opened. The preper itoneal fat was through it. The hernia sac and contents were successfully reduced. The hernia aarti ured approximately 1.5 cm in greatest dimension. It was closed primarily with interrupted Surgilon sutures. SPECIMENS: None. ESTIMATED BLOOD LOSS: 5 cc. DESCRIPTION OF PROCEDURE: The patient was greeted in the preoperative suite. Once again, risks, be nefits, and alternatives were discussed. The consent was signed. She was then brought back to the operative suite, placed on the OR table in a supine position. After all anesthesia machines, includ ing SCDs, were on and functioning, a World [employer] time-out was performed ending with scott casper in agreement. The patient's abdomen was then widely prepped and draped in typical sterile fashion . Antibiotics were given on-call to the operating room. I made an incision just above and to the s penny of her umbilicus. I carried this down to the subcutaneous tissue using electrocautery. Once th is was successfully done, I identified the hernia sac and successfully reduced it from the surroundi ng tissue. I then successfully reduced it into the abdominal cavity. The fascial edges were gently cleansed. The defect measured approximately 1.5 cm. I identified no surrounding defects. Given t he size and the successful reduction, I chose to repair it using interrupted 0 Surgilon sutures, whi ch were done in interrupted fashion noting excellent fascial reapproximation with minimal to no tens ion. After this was done, I instilled the area with 0.25% Marcaine with epinephrine. I closed the subcutaneous tissue with interrupted 3-0 Vicryl, the skin with a running 4-0 Monocryl over which Chandler mabond was placed. The patient was attempted to be extubated in the operative suite but given her u nderlying pulmonary issues was unsuccessfully extubated and was taken to the ICU intubated. DRAINS: None. COUNTS: All counts were reported as correct x2. /[id number]/MODL
[2016-07-30] MEDS: ALBUTEROL 200 PUFFS/18 GM MDI IH SCH ×4 (00:09→11:44)
[2016-07-30] MEDS: PROPOFOL/EMULSION 100 ML IV SCH (00:15)
[2016-07-30] MEDS: fentaNYL/NACL 100 ML IV SCH (04:18)
[2016-07-30 05:04] LABS: % IMMATURE GRANULYOCYTES 0.5 % (0.0-1.1); ABSOLUTE IMMATURE GRANULOCYTES 0.03 10^3/uL (0.00-0.10); ADD DIFF? NO; ADD MORPH? NO; ADD SCAN? NO; ATYPICAL LYMPHOCYTE FLAG 30 (0-99); FRAGMENT RBC FLAG 0 (0-99); HEMATOCRIT 31.8 % (38.0-47.0); HEMOGLOBIN 10.5 g/dL (12.6-16.3); LEFT SHIFT FLG 10 (0-99); LIPEMIA HEMOLYSIS FLAG 80 (0-99); MEAN CELL HEMOGLOBIN 28.6 pg (27.9-34.1); MEAN CELL VOLUME 86.6 fL (81.5-99.8); MEAN PLATELET VOLUME 9.8 fL (8.7-11.7); PLATELET CLUMPS FLAG 0 (0-99); PLATELET COUNT 373 10^3/uL (150-400); RED BLOOD CELL COUNT 3.67 10^6/uL (4.18-5.33); RED CELL DISTRIBUTION WIDTH 15.3 % (11.5-15.2)
[2016-07-30 05:16] LABS: ALANINE AMINOTRANSFERASE 409 IU/L (9-52); ALBUMIN 3.3 g/dL (3.5-5.0); ALKALINE PHOSPHATASE 302 IU/L (38-126); ANION GAP 6 mEq/L (8-16); ASPARTATE AMINOTRANSFERASE 593 IU/L (14-46); BILIRUBIN,TOTAL 1.4 mg/dL (0.1-1.4); CALCIUM 8.7 mg/dL (8.5-10.4); CARBON DIOXIDE 23 mEq/l (22-31); CHLORIDE 106 mEq/L (97-110); CREATININE 0.5 mg/dL (0.6-1.0); GLOMERULAR FILTRATION RATE > 60; GLUCOSE 96 mg/dL (70-100); POTASSIUM 4.2 mEq/L (3.5-5.2); SODIUM 135 mEq/L (134-144)
[2016-07-30] MEDS: IPRATROPIUM/ALBUTEROL 3 ML DEYVIAL IH SCH ×4 (05:17→21:07)
--- NOTE | 2016-07-30 06:55 | SOAPPROG ---
SOAP Progress Note Assessment/Plan: Assessment: Plan: POD#1 s/p incarcerated incisonal hernia repair - Remains intubated, hopefully will wean to extubate this AM - Abdominal exam reassuring, incision c/d/i and covered with sterile glue - plans per Dr Johnson 07/30/16 06:54 Objective: Vital Signs Temp Pulse Resp BP Pulse Ox 38.3 C 94 16 94/60 L 100 07/30/16 05:00 07/30/16 06:00 07/30/16 06:00 07/30/16 06:00 07/30/16 06:00 Microbiology 07/29/16 14:00 Gram Stain - Final Lung Bilateral - Bronchial Washings Laboratory Results 07/30/16 04:22 07/30/16 04:22 07/29/16 07/30/16 07/31/16 05:59 05:59 05:59 Intake Total 400 4604 Output Total 1300 Balance 400 3304 ICD10 Worksheet Patient Problems: Problems Problem Status Onset Hypoxia Acute Pneumonia Acute Sepsis Acute
[2016-07-30] MEDS: FAMOTIDINE 20 MG/NACL 50 ML IV SCH ×2 (08:13→22:10)
[2016-07-30] MEDS: ERTAPENEM 1 GM in NS 100 ML IV SCH (08:13)
[2016-07-30] MEDS: AZITHROMYCIN IV 500 MG in D5W 250 ML IV SCH (08:15)
[2016-07-30] MEDS: CHLORHEXIDINE GLUCONATE 15 ML UDL PO SCH (08:50)
--- NOTE | 2016-07-30 08:58 | HOSPPROG ---
Hospitalist Progress Note Assessment/Plan: This is a 51 y/o female new to my care 07/30/16 s/p hernia repair 07/29/16 with: #Acute hypoxemic respiratory failure due to COPD exacerbation with h/o chronic pulmonary infiltrates now intubated postoperatively -bronchoscopy report 07/29 reviewed -wean from vent as tolerated per pulm #Acute Incarceration of periumbilical hernia s/p repair 07/29/16 -continue routine postop care per surgery #transaminitis of unclear etiology -continue to monitor #developing pneumonia on cxr 07/30 with h/o bilat infiltrates ddx bacterial vs viral -cont Erta and azithromycin -check procalcitonin Pt is high risk Subjective: intubated and sedated Objective: Vital Signs Temp Pulse Resp BP Pulse Ox 38.3 C 65 16 90/49 L 99 07/30/16 07:57 07/30/16 08:20 07/30/16 07:57 07/30/16 07:57 07/30/16 08:20 Microbiology 07/25/16 01:48 Blood Culture - Final Blood 07/25/16 01:42 Blood Culture - Final Blood 07/29/16 14:00 Gram Stain - Final Lung Bilateral - Bronchial Washings Laboratory Results 07/30/16 04:22 07/30/16 04:22 07/29/16 07/30/16 07/31/16 05:59 05:59 05:59 Intake Total 400 4604 Output Total 1300 Balance 400 3304 cxr 07/30visualized and personally interpreted shows worsening infiltrates - Physical Exam Constitutional: uncomfortable Eyes: PERRL, anicteric sclera, EOMI Ears, Nose, Mouth, Throat: moist mucous membranes, hearing normal, ears appear normal, no oral mucosal ulcers, other (et tube inplace) Cardiovascular: regular rate and rhythym, no murmur, rub, or gallop Respiratory: no respiratory distress, reduced air movement, bronchial breath sounds, No rhonchi Gastrointestinal: distension, other (hypoactive bowel sounds), No guarding, No rebound Genitourinary: no bladder fullness, no bladder tenderness, no renal bruits Skin: no rashes or abrasions, no fluctuance, no induration ICD10 Worksheet Patient Problems: Problems Problem Status Onset Pneumonia Acute Hypoxia Acute Sepsis Acute
[2016-07-30] MEDS: PANTOPRAZOLE SODIUM 40 MG TAB PO SCH (11:21)
[2016-07-30] MEDS: methylPREDNISolone SOD SUCC 125 MG/2 ML VIAL IVP SCH ×2 (11:21→17:10)
[2016-07-30] MEDS: METHOCARBAMOL 500 MG TAB PO SCH ×2 (12:18→15:59)
--- NOTE | 2016-07-30 13:02 | PCMIDPN ---
Assessment/Plan: Assessment/Plan: * Bilateral multifocal pulmonary infiltrates: Infectious versus noninfectious etiology. BAL cultures no growth to date. Extubated without respiratory distress. Continue empiric ertapenem and Zithromax. Follow up BAL cultures as ordered. Follow up procalcitonin as available. * Transaminitis: Query related to anesthesia or hypotension. Continue to follow. * Fever: New onset fever postoperatively. May be atelectasis post surgery. Also could be related to transaminitis. Will repeat blood cultures. 07/30/16 12:59 07/30/16 13:01 07/30/16 13:02 Subjective: Extubated. Sleepy but easily arousable. Objective: Vital Signs Temp Pulse Resp BP Pulse Ox 38.2 C 105 H 25 H 138/79 H 95 07/30/16 12:00 07/30/16 12:00 07/30/16 12:00 07/30/16 12:00 07/30/16 12:00 Microbiology 07/29/16 14:00 Gram Stain - Final Lung Bilateral - Bronchial Washings 07/29/16 14:00 Mycobacterial Smear (RAFAT) - Final Lung Bilateral - Bronchial Washings 07/25/16 01:48 Blood Culture - Final Blood 07/25/16 01:42 Blood Culture - Final Blood Laboratory Results 07/30/16 04:22 07/30/16 04:22 07/29/16 07/30/16 07/31/16 05:59 05:59 05:59 Intake Total 400 4604 Output Total 1300 Balance 400 3304 Ertapenem # 2 Azithromycin # 2 - Physical Exam General Appearance: no apparent distress, non-toxic EENT: No scleral icterus Respiratory: lungs clear, No respiratory distress Cardiac/Chest: tachycardia Abdomen: tender (Periumbilical region with intact incision) ICD10 Worksheet Patient Problems: Problems Problem Status Onset Hypoxia Acute Pneumonia Acute Sepsis Acute
--- NOTE | 2016-07-30 14:24 | SOAPPROG ---
SOAP Progress Note Assessment/Plan: Assessment: WOUND OKAY FOLLOWING A INCARCERATED VENTRAL HERNIA REPAIR / AFEBRILE/ LFTS DRAMATICALLY ELEVATED/ BILATERAL PULMONARY INFILTRATES ON CHEST X-RAY/ PATIENT EXTUBATED BUT STILL WITH NG TUBE IN PLACE / ABDOMEN SOFT WITH DECREASED BOWEL SOUNDS NOT VERY COMMUNICATIVE Plan: WILL FOLLOW/ DIET WHEN ABDOMEN IS MORE ACTIVE / 07/30/16 14:22 Objective: Vital Signs Temp Pulse Resp BP Pulse Ox 38.2 C 81 18 100/60 98 07/30/16 12:00 07/30/16 14:00 07/30/16 14:00 07/30/16 14:00 07/30/16 14:00 Microbiology 07/29/16 14:00 Gram Stain - Final Lung Bilateral - Bronchial Washings 07/29/16 14:00 Mycobacterial Smear (RAFAT) - Final Lung Bilateral - Bronchial Washings 07/25/16 01:48 Blood Culture - Final Blood 07/25/16 01:42 Blood Culture - Final Blood Laboratory Results 07/30/16 04:22 07/30/16 04:22 07/29/16 07/30/16 07/31/16 05:59 05:59 05:59 Intake Total 400 4604 Output Total 1300 Balance 400 3304 ICD10 Worksheet Patient Problems: Problems Problem Status Onset Hypoxia Acute Pneumonia Acute Sepsis Acute
[2016-07-30 14:35] LABS: COCCIDIOIDES ANTIBODY SERUM Negative (Negative); COCCIDIOIDES IGG IMMUNODIF Negative (Negative); COCCIDIOIDES IGM IMMUNODIF Negative (Negative)
--- NOTE | 2016-07-30 17:13 | PDINTPN ---
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 Extubated this morning without significant difficulties. Still have some evidence of bronchitis/pneumonitis. On antibiotics and steroids Bilateral pulmonary infiltrates. Etiology unclear. Query infectious pneumonitis, query inflammatory lung disease, ADVENTURE EDUCATION TEACHER, EP, etc. Unable to perform bronchoscopy 07/27. BAL done yesterday while she on the ventilator. Findings are negative thus far. Bacterial cultures pending. AFB negative. No significant he eosinophilic is on cell count and differential. Previous serology is negative. Changes may indeed be related to aspiration pneumonitis? On antibiotics and steroids. COPD: With exacerbation, consistent with bronchitis/bronchopneumonia/ pneumonitis. Umbilical hernia: Status post herniorrhaphy. Went well, no issues. DVT prophylaxis: None currently. Will start tomorrow GI prophylaxis: On pantoprazole Metabolic: Lab pending Plan: Continue care in the intensive care unit. Continue antibiotics, steroids , and bronchopulmonary treatments. Follow x-ray and laboratory. Await on further cultures. Discussed with surgery, hospitalist, nursing, respiratory therapy, and the ICU multi disciplinary team.. 50 minutes of critical care time was spent directly with the patient. Subjective: On ventilator this morning. Placed on CPAP for approximately 1 hour. Became agitated but weaning parameters appeared appropriate bus extubated. Has done acceptably since. Objective: Vital Signs Temp Pulse Resp BP Pulse Ox 37.6 C 75 20 121/64 H 97 07/30/16 16:00 07/30/16 16:30 07/30/16 16:00 07/30/16 16:00 07/30/16 16:30 Microbiology 07/29/16 14:00 Gram Stain - Final Lung Bilateral - Bronchial Washings 07/29/16 14:00 Mycobacterial Smear (RAFAT) - Final Lung Bilateral - Bronchial Washings 07/25/16 01:48 Blood Culture - Final Blood 07/25/16 01:42 Blood Culture - Final Blood Laboratory Results 07/30/16 04:22 07/30/16 04:22 07/29/16 07/30/16 07/31/16 05:59 05:59 05:59 Intake Total 400 4604 Output Total 1300 2000 Balance 400 3304 -2000 Laboratory Tests 07/26/16 07/29/16 07/29/16 10:00 14:00 21:26 pCO2 34 pO2 128 H ABG pH 7.45 O2 Concentration % 40 Actual Respiration Rate 16 Set Respiration Rate 16 Tidal Volume 600 PEEP 5 Pressure Support 10 Calcium Total Bilirubin AST ALT Albumin Angiotensin Convert Enz 28 Fluid WBC 292 H Fluid RBC 437 H Fluid Neutrophils 17 Fluid Lymphocytes 16 Fluid Eosinophils 1 Fld Meso/Macro/Monocyte 66 Proteinase 3 (PR3) < 0.2 Myeloperoxidase Ab <0.2 07/30/16 04:22 pCO2 pO2 ABG pH O2 Concentration % Actual Respiration Rate Set Respiration Rate Tidal Volume PEEP Pressure Support Calcium 8.7 Total Bilirubin 1.4 D AST 593 H ALT 409 H Albumin 3.3 L Angiotensin Convert Enz Fluid WBC Fluid RBC Fluid Neutrophils Fluid Lymphocytes Fluid Eosinophils Fld Meso/Macro/Monocyte Proteinase 3 (PR3) Myeloperoxidase Ab CXR: Hypoventilatory changes. Infiltrates are difficult to interpret. Lines and tubes in good position. Physical Exam - Physical Exam General Appearance: other (Lethargic, arousable, pulling at tubes and lines in restraints at times.) EENT: PERRL/EOMI, ET tube, other (NG) Neck: normal inspection Respiratory: decreased breath sounds, rales (At bases), rhonchi (Central rhonchi present), wheezing (Expiratory wheezes present) Cardiac/Chest: regular rate, rhythm Abdomen: normal bowel sounds, non-tender, soft, No hepatomegaly, No splenomegaly Rectal: other (Vegas catheter in place. Adequate) Skin: normal color, warm/dry Extremities: pedal edema (Trace) Neuro/Psych: no motor/sensory deficits (Moves all extremities), No cognition abnormalities (Difficult to evaluate) ICD10 Worksheet Patient Problems: Problems Problem Status Onset Pneumonia Acute Hypoxia Acute Sepsis Acute
[2016-07-30] MEDS: ENOXAPARIN 40 MG/0.4 ML SYR SC SCH (19:11)
[2016-07-30] MEDS: LORazepam 2 MG/ML INJ IVP PRN (22:09)
[2016-07-31] MEDS: NS 1,000 ML IV SCH ×2 (00:04→21:01)
[2016-07-31] MEDS: methylPREDNISolone SOD SUCC 125 MG/2 ML VIAL IVP SCH ×3 (00:04→20:54)
[2016-07-31] MEDS: PANTOPRAZOLE SODIUM 40 MG TAB PO SCH ×3 (00:10→20:46)
[2016-07-31] MEDS: METHOCARBAMOL 500 MG TAB PO SCH ×4 (00:10→21:01)
[2016-07-31] MEDS: IPRATROPIUM/ALBUTEROL 3 ML DEYVIAL IH SCH ×4 (05:45→19:06)
[2016-07-31 05:47] LABS: % IMMATURE GRANULYOCYTES 0.6 % (0.0-1.1); ABSOLUTE IMMATURE GRANULOCYTES 0.07 10^3/uL (0.00-0.10); ADD DIFF? NO; ADD MORPH? NO; ADD SCAN? NO; ATYPICAL LYMPHOCYTE FLAG 0 (0-99); FRAGMENT RBC FLAG 0 (0-99); HEMATOCRIT 34.8 % (38.0-47.0); HEMOGLOBIN 11.5 g/dL (12.6-16.3); LEFT SHIFT FLG 10 (0-99); LIPEMIA HEMOLYSIS FLAG 80 (0-99); MEAN CELL HEMOGLOBIN 28.5 pg (27.9-34.1); MEAN CELL VOLUME 86.4 fL (81.5-99.8); MEAN PLATELET VOLUME 9.6 fL (8.7-11.7); PLATELET CLUMPS FLAG 0 (0-99); PLATELET COUNT 371 10^3/uL (150-400); RED BLOOD CELL COUNT 4.03 10^6/uL (4.18-5.33); RED CELL DISTRIBUTION WIDTH 14.7 % (11.5-15.2)
[2016-07-31 06:01] LABS: ALANINE AMINOTRANSFERASE 291 IU/L (9-52); ALBUMIN 3.3 g/dL (3.5-5.0); ALKALINE PHOSPHATASE 337 IU/L (38-126); ANION GAP 8 mEq/L (8-16); ASPARTATE AMINOTRANSFERASE 154 IU/L (14-46); BILIRUBIN,TOTAL 0.7 mg/dL (0.1-1.4); CALCIUM 9.2 mg/dL (8.5-10.4); CARBON DIOXIDE 23 mEq/l (22-31); CHLORIDE 106 mEq/L (97-110); CREATININE 0.5 mg/dL (0.6-1.0); GLOMERULAR FILTRATION RATE > 60; GLUCOSE 135 mg/dL (70-100); POTASSIUM 3.7 mEq/L (3.5-5.2); SODIUM 137 mEq/L (134-144); TOTAL PROTEIN 6.3 g/dL (6.3-8.2)
[2016-07-31] MEDS: FAMOTIDINE 20 MG/NACL 50 ML IV SCH (08:41)
[2016-07-31] MEDS: ENOXAPARIN 40 MG/0.4 ML SYR SC SCH (08:42)
[2016-07-31] MEDS: LORazepam 2 MG/ML INJ IVP PRN (08:42)
[2016-07-31] MEDS: ERTAPENEM 1 GM in NS 100 ML IV SCH (08:42)
[2016-07-31] MEDS: AZITHROMYCIN IV 500 MG in D5W 250 ML IV SCH (08:42)
--- NOTE | 2016-07-31 11:35 | SOAPPROG ---
SOAP Progress Note Assessment/Plan: Assessment: WOUND OKAY FOLLOWING A INCARCERATED VENTRAL HERNIA REPAIR / AFEBRILE/ LFTS DRAMATICALLY ELEVATED/ BILATERAL PULMONARY INFILTRATES ON CHEST X-RAY/ PATIENT EXTUBATED BUT STILL WITH NG TUBE IN PLACE / ABDOMEN SOFT WITH DECREASED BOWEL SOUNDS NOT VERY COMMUNICATIVE Plan: WILL FOLLOW/ DIET WHEN ABDOMEN IS MORE ACTIVE / 07/30/16 14:22 07/31/16 11:35 DOING WELL/ AFEBRILE/ +FLATUS AND BM Objective: Vital Signs Temp Pulse Resp BP Pulse Ox 36.9 C 79 23 H 115/62 98 07/31/16 08:00 07/31/16 08:00 07/31/16 08:00 07/31/16 08:00 07/31/16 08:00 Microbiology 07/29/16 14:00 Gram Stain - Final Lung Bilateral - Bronchial Washings 07/29/16 14:00 Mycobacterial Smear (RAFAT) - Final Lung Bilateral - Bronchial Washings 07/25/16 01:48 Blood Culture - Final Blood 07/25/16 01:42 Blood Culture - Final Blood Laboratory Results 07/31/16 05:34 07/31/16 05:34 07/30/16 07/31/16 08/01/16 05:59 05:59 05:59 Intake Total 4604 1700 Output Total 1300 3300 Balance 3304 -1600 ICD10 Worksheet Patient Problems: Problems Problem Status Onset Hypoxia Acute Pneumonia Acute Sepsis Acute
[2016-07-31] MEDS: traMADol 50 MG TAB PO PRN ×2 (12:06→21:01)
--- NOTE | 2016-07-31 12:48 | PDINTPN ---
Agricultural Education Professor Progress Note Assessment/Plan: Assessment: Acute postoperative respiratory insufficiency. Has done well post extubation. Remains somewhat congested with some wheezing min rales. Bilateral pulmonary infiltrates. Etiology unclear. Query infectious pneumonitis, query inflammatory lung disease, PSYCHIATRIC ATTENDANT, EP, etc. Unable to perform bronchoscopy 07/27. BAL done 07/29 postoperatively while she was on the ventilator. Findings are negative thus far. Bacterial cultures now growing a rare alpha strep. AFB negative. No significant eosinophils on cell count/ differential. Previous serology negative. Changes may indeed be related to aspiration pneumonitis? On antibiotics and steroids. COPD: With exacerbation, consistent with bronchitis/bronchopneumonia/ pneumonitis. Umbilical hernia: Status post herniorrhaphy. Went well, no issues. Has been NPO since surgery. Cleared for clear liquids. DVT prophylaxis: On enoxaparin GI prophylaxis: On pantoprazole Metabolic: Elevated liver function studies, coming down. Query etiology. Alcohol is denied. Will get an ultrasound. Plan: Continue care in the intensive care unit today. Remove NG tube if she tolerates orals without problems. Continue antibiotics, steroids, and bronchopulmonary treatments. Follow x-ray, LFTs and laboratory. For right upper quadrant ultrasound. Hepatitis screening if not done previously. Discussed with surgery, hospitalist, nursing, respiratory therapy, and the ICU multi disciplinary team. Subjective: Doing well post extubation. Denies significant shortness of breath, cough or mucus. No chest pain. Some abdominal pain postoperatively, back pain. Objective: Vital Signs Temp Pulse Resp BP Pulse Ox 36.9 C 92 19 99/61 L 97 07/31/16 08:00 07/31/16 12:00 07/31/16 12:00 07/31/16 12:00 07/31/16 12:00 Microbiology 07/29/16 14:00 Gram Stain - Final Lung Bilateral - Bronchial Washings 07/29/16 14:00 Mycobacterial Smear (RAFAT) - Final Lung Bilateral - Bronchial Washings 07/25/16 01:48 Blood Culture - Final Blood 07/25/16 01:42 Blood Culture - Final Blood Laboratory Results 07/31/16 05:34 07/31/16 05:34 07/30/16 07/31/16 08/01/16 05:59 05:59 05:59 Intake Total 4604 1700 Output Total 1300 3300 Balance 3304 -1600 Laboratory Tests 07/31/16 05:34 Calcium 9.2 Total Bilirubin 0.7 AST 154 H ALT 291 H Albumin 3.3 L CXR: Pulmonary infiltrates are improved, with patchy changes resolving. Some reticular nodular changes persist bilaterally. Physical Exam - Physical Exam General Appearance: alert, no apparent distress, obese EENT: other (Nasal cannula in place at 3 L. NG tube in place. Bilious drainage. ) Neck: normal inspection (No JVD) Respiratory: decreased breath sounds (Bilaterally), rales (Few scattered rales at the bases), wheezing (Expiratory wheezes and congestion, with a few opening sounds.), No rhonchi Cardiac/Chest: regular rate, rhythm (Distant heart tones), No gallop Abdomen: soft, No normal bowel sounds (Decreased, present), No non-tender ( Mildly tender to palpation) Pelvic Exam: other (Vegas catheter in place, good urine output) Skin: normal color, warm/dry Extremities: No pedal edema Neuro/Psych: no motor/sensory deficits, No cognition abnormalities (Lethargic, arousable, responsive) ICD10 Worksheet Patient Problems: Problems Problem Status Onset Pneumonia Acute Hypoxia Acute Sepsis Acute
--- NOTE | 2016-07-31 13:25 | HOSPPROG ---
Hospitalist Progress Note Assessment/Plan: 51-year-old homeless woman admitted with fever shortness of breath and bilateral pulmonary infiltrates. The infiltrates have been present previously and evaluation had included some serologies all of which have been fairly unremarkable is to diagnosis. With her cough she developed worsening umbilical hernia so underwent a hernia repair on 07/29/2016, during this repair she did have a bronchoscopy done with sputum samples. She remained intubated postoperatively for 24 hours and is currently extubated. # acute hypoxemic respiratory failure due to COPD exacerbation as well as history of chronic pulmonary infiltrates. She is status post extubation and doing quite well with minimal cough currently. Treating for possible pneumonia noted on chest x-ray and CT scan. * Continue steroids and antibiotics * Follow respiratory status closely * Unable to do biopsy perioperatively because of patient being intubated however if infiltrates persist the next step would be a lung biopsy. # acute incarceration of periumbilical hernia status post repair on 07/29/2016 * Postop care per surgery # transaminitis of unclear etiology. LFTs are improving, however unclear as to the cause. * Check ultrasound * Check hepatitis serology * Continue follow-up TS # homelessness # DVT and GI prophylaxis Subjective: Patient fairly lethargic obey simple commands. No complaints. Patient new to de and chart reviewed Objective: Vital Signs Temp Pulse Resp BP Pulse Ox 36.9 C 92 19 99/61 L 97 07/31/16 08:00 07/31/16 12:00 07/31/16 12:00 07/31/16 12:00 07/31/16 12:00 Microbiology 07/29/16 14:00 Gram Stain - Final Lung Bilateral - Bronchial Washings 07/29/16 14:00 Mycobacterial Smear (RAFAT) - Final Lung Bilateral - Bronchial Washings Laboratory Results 07/31/16 05:34 07/31/16 05:34 07/30/16 07/31/16 08/01/16 05:59 05:59 05:59 Intake Total 4604 1700 Output Total 1300 3300 Balance 3304 -1600 - Physical Exam Constitutional: not in pain, chronically ill appearing Eyes: PERRL, anicteric sclera Ears, Nose, Mouth, Throat: moist mucous membranes, other (NG tube in place) Cardiovascular: regular rate and rhythym, no murmur, rub, or gallop Respiratory: no respiratory distress, inspiratory crackles Gastrointestinal: soft, non-tender abdomen, No normoactive bowel sounds ( Diminished) Genitourinary: no bladder fullness Skin: warm, normal color Musculoskeletal: full muscle strength, generalized weakness Psychiatric: other (Sleepy) ICD10 Worksheet Patient Problems: Problems Problem Status Onset Pneumonia Acute Hypoxia Acute Sepsis Acute
[2016-07-31] MEDS: oxyCODONE IR 5 MG TAB PO PRN ×2 (14:44→21:01)
[2016-07-31] MEDS: hydrOXYzine HCL 50 MG TAB PO PRN (14:44)
[2016-07-31 15:47] LABS: ALBUMIN 3.3 g/dL (3.5-5.0); BILIRUBIN,TOTAL 0.4 mg/dL (0.1-1.4); BILIRUBIN-CONJUGATED 0.2 mg/dL (0.0-0.5); BILIRUBIN-UNCONJUGATED 0.2 mg/dL (0.0-1.1); TOTAL PROTEIN 6.5 g/dL (6.3-8.2)
--- NOTE | 2016-07-31 18:07 | PCMIDPN ---
Assessment/Plan: Assessment/Plan: * Bilateral multifocal pulmonary infiltrates: Clinically improved. Infectious versus noninfectious etiology. BAL cultures with growth of alpha hemolytic Streptococcus, not Streptococcus pneumoniae. Likely represents or pharyngeal Streptococcus. Could be true pathogen if due to aspiration although also could represent colonization from or pharyngeal ethan. Have asked lab to further evaluate. Continue empiric ertapenem and azithromycin. * Transaminitis: Query related to anesthesia or hypotension. Improving. Ultrasound without focal findings. * Fever: Significant decrease in temperature. Blood cultures have been no growth. 07/31/16 18:04 Subjective: Patient feels improved. Complains of periumbilical pain at surgical site. Overall breathing improving. Objective: Vital Signs Temp Pulse Resp BP Pulse Ox 36.4 C 87 24 H 92/54 L 98 07/31/16 17:36 07/31/16 17:36 07/31/16 17:36 07/31/16 17:36 07/31/16 17:36 Microbiology 07/29/16 14:00 Gram Stain - Final Lung Bilateral - Bronchial Washings Laboratory Results 07/31/16 05:34 07/31/16 05:34 07/30/16 07/31/16 08/01/16 05:59 05:59 05:59 Intake Total 4604 1700 750 Output Total 1300 3300 500 Balance 3304 -1600 250 Ertapenem # 3 Azithromycin # 3 BAL cultures with growth of alpha hemolytic Streptococcus, not Streptococcus pneumoniae Blood cultures 07/30/2016 pending Chest x-ray with stable bilateral pulmonary infiltrates - Physical Exam General Appearance: alert, no apparent distress EENT: No scleral icterus, No thrush Respiratory: crackles (Scattered bilaterally) Cardiac/Chest: regular rate, rhythm Abdomen: non-tender, No distended ICD10 Worksheet Patient Problems: Problems Problem Status Onset Hypoxia Acute Pneumonia Acute Sepsis Acute
[2016-07-31] MEDS: LORazepam 1 MG TAB PO PRN (21:01)
[2016-08-01] MEDS: IPRATROPIUM/ALBUTEROL 3 ML DEYVIAL IH SCH ×4 (05:46→21:13)
[2016-08-01 06:07] LABS: HEMATOCRIT 32.1 % (38.0-47.0); HEMOGLOBIN 10.4 g/dL (12.6-16.3); MEAN CELL HEMOGLOBIN 28.3 pg (27.9-34.1); MEAN CELL HEMOGLOBIN CONCENTR. 32.4 g/dL (32.4-36.7); MEAN CELL VOLUME 87.5 fL (81.5-99.8); RED BLOOD CELL COUNT 3.67 10^6/uL (4.18-5.33); RED CELL DISTRIBUTION WIDTH 15.2 % (11.5-15.2)
[2016-08-01 07:34] LABS: ANION GAP 11 mEq/L (8-16); CARBON DIOXIDE 22 mEq/l (22-31); CHLORIDE 106 mEq/L (97-110); CREATININE 0.5 mg/dL (0.6-1.0); GLOMERULAR FILTRATION RATE > 60; GLUCOSE 136 mg/dL (70-100); POTASSIUM 4.3 mEq/L (3.5-5.2); SODIUM 139 mEq/L (134-144)
--- NOTE | 2016-08-01 08:51 | PCMIDPN ---
Assessment/Plan: Assessment: Bilateral multifocal infiltrates. Patient developed fever 3 days ago and was treated empirically with both ertapenem and azithromycin. She defervesced rapidly. She remains afebrile. Cultures from bronchoscopy reveal alpha hemolytic strep which is not pneumoniae. This does cast suspicion upon silent aspiration as the possible cause for her bilateral infiltrates. She does apparently have underlying hiatal hernia which may or may not contribute to this. Plan to continue the ertapenem and azithromycin for now. Likely short course for 7 days total. Will discuss with hospitalist regarding strategies for diagnosing the reflux and aspiration issues. Plan: 1. Continue both ertapenem and azithromycin. 2. Discussed with hospitalist regarding reflux and aspiration potential. 3. Follow her temp curve and clinical course. Also follow up on final identification of isolates from BAL. Subjective: Patient resting in her hospital bed. She claims that she is feeling better and is breathing better. Tolerating ertapenem and azithromycin without issue. Objective: Ertapenem #4 Azithromycin #4 Vital Signs Temp Pulse Resp BP Pulse Ox 37.0 C 65 18 118/71 87 L 08/01/16 08:40 08/01/16 08:40 08/01/16 08:40 08/01/16 08:40 08/01/16 08:40 Microbiology 07/29/16 14:00 Gram Stain - Final Lung Bilateral - Bronchial Washings Laboratory Results 08/01/16 04:40 08/01/16 04:40 07/31/16 08/01/16 08/02/16 05:59 05:59 05:59 Intake Total 1700 1462 Output Total 3300 500 Balance -1600 962 - Physical Exam General Appearance: WD/WN, alert, no apparent distress, non-toxic Respiratory: crackles (Scattered bilateral), No lungs clear, No normal breath sounds, No bronchial breath sounds, No coarse breath sounds Cardiac/Chest: regular rate, rhythm, No tachycardia Skin: normal color, warm/dry, No rash Neuro/Psych: alert, normal mood/affect, oriented x 3 ICD10 Worksheet Patient Problems: Problems Problem Status Onset Hypoxia Acute Pneumonia Acute Sepsis Acute
[2016-08-01] MEDS: ERTAPENEM 1 GM in NS 100 ML IV SCH (09:30)
[2016-08-01] MEDS: METHOCARBAMOL 500 MG TAB PO SCH ×3 (09:30→20:38)
[2016-08-01] MEDS: methylPREDNISolone SOD SUCC 125 MG/2 ML VIAL IVP SCH (09:31)
[2016-08-01] MEDS: PANTOPRAZOLE SODIUM 40 MG TAB PO SCH ×2 (09:31→20:38)
[2016-08-01] MEDS: ENOXAPARIN 40 MG/0.4 ML SYR SC SCH (09:32)
[2016-08-01] MEDS: oxyCODONE IR 5 MG TAB PO PRN ×3 (09:43→19:33)
[2016-08-01] MEDS: NS 1,000 ML IV SCH (10:00)
[2016-08-01] MEDS: AZITHROMYCIN IV 500 MG in D5W 250 ML IV SCH (10:13)
--- NOTE | 2016-08-01 10:14 | SOAPPROG ---
SOAP Progress Note Assessment/Plan: Assessment/Plan: 51 Y homeless female, COPD, PNA, elevated LFTs, now s/p repair of incarcerated periumbilical hernia. Ileus. NG clamped. Tolerating clears. +BM and flatus. D/c NGT. Start light diet. S: awake, sitting up in bed eating jello. c/o sore throat with ngt. +BM and flatus. Mild nausea. O: alert, nad ncat, mmm no wob abd soft, inc cdi, appropriately tender 08/01/16 10:12 Objective: Vital Signs Temp Pulse Resp BP Pulse Ox 37.0 C 65 18 118/71 87 L 08/01/16 08:40 08/01/16 08:40 08/01/16 08:40 08/01/16 08:40 08/01/16 08:40 Microbiology 07/29/16 14:00 Gram Stain - Final Lung Bilateral - Bronchial Washings Laboratory Results 08/01/16 04:40 08/01/16 04:40 07/31/16 08/01/16 08/02/16 05:59 05:59 05:59 Intake Total 1700 1462 Output Total 3300 500 Balance -1600 962 ICD10 Worksheet Patient Problems: Problems Problem Status Onset Hypoxia Acute Pneumonia Acute Sepsis Acute
[2016-08-01] MEDS: hydrOXYzine HCL 50 MG TAB PO PRN (12:54)
--- NOTE | 2016-08-01 13:59 | HOSPPROG ---
Hospitalist Progress Note Assessment/Plan: 51-year-old homeless woman admitted with fever shortness of breath and bilateral pulmonary infiltrates. The infiltrates have been present previously and evaluation had included some serologies all of which have been fairly unremarkable is to diagnosis. With her cough she developed worsening umbilical hernia so underwent a hernia repair on 07/29/2016, during this repair she did have a bronchoscopy done with sputum samples. She remained intubated postoperatively for 24 hours and is currently extubated. # acute hypoxemic respiratory failure due to COPD exacerbation as well as history of chronic pulmonary infiltrates. She is status post extubation and doing quite well with minimal cough currently. Treating for possible pneumonia noted on chest x-ray and CT scan. * Continue steroids, change to prednisone today * Continue abx, transition to PO at discharge * recheck CXR in am, anticipate dc if oxygen req continue to improve. * Follow respiratory status closely * Unable to do biopsy perioperatively because of patient being intubated however if infiltrates persist the next step would be a lung biopsy. # acute incarceration of periumbilical hernia status post repair on 07/29/2016 * Postop care per surgery # transaminitis of unclear etiology. LFTs are improving, however unclear as to the cause. She states she has had elevated enzymes in the past, US shows mild hepatomegaly and Hep serologies are negative * FU in am * will need outpatient follow up, she sees [facility]. # homelessness, recently relocated from [place] after the of her Mother in January. # DVT and GI prophylaxis Subjective: Feeling better. still mild SOB. no abdo pain,. history of elevated LFT in the past in [facility] per patient. Objective: Vital Signs Temp Pulse Resp BP Pulse Ox 36.8 C 92 18 109/63 91 L 08/01/16 12:58 08/01/16 12:58 08/01/16 12:58 08/01/16 12:58 08/01/16 12:58 Microbiology 07/29/16 14:00 Gram Stain - Final Lung Bilateral - Bronchial Washings Laboratory Results 08/01/16 04:40 08/01/16 04:40 07/31/16 08/01/16 08/02/16 05:59 05:59 05:59 Intake Total 1700 1462 Output Total 3300 500 Balance -1600 962 - Physical Exam Constitutional: no apparent distress, chronically ill appearing Eyes: PERRL, EOMI Ears, Nose, Mouth, Throat: moist mucous membranes Cardiovascular: regular rate and rhythym, no murmur, rub, or gallop Respiratory: no respiratory distress, reduced air movement, inspiratory crackles , No expiratory wheeze Gastrointestinal: normoactive bowel sounds, no palpable masses, tenderness ( mild RUQ tenderness.) Skin: warm Musculoskeletal: generalized weakness Neurologic: AAOx3 Psychiatric: interacting appropriately, not anxious, not encephalopathic ICD10 Worksheet Patient Problems: Problems Problem Status Onset Pneumonia Acute Hypoxia Acute Sepsis Acute
[2016-08-01] MEDS: predniSONE 20 MG TAB PO SCH (15:47)
[2016-08-01 16:09] LABS: ALBUMIN 3.1 g/dL (3.5-5.0); BILIRUBIN,TOTAL 0.4 mg/dL (0.1-1.4); BILIRUBIN-CONJUGATED 0.3 mg/dL (0.0-0.5); BILIRUBIN-UNCONJUGATED 0.1 mg/dL (0.0-1.1); TOTAL PROTEIN 5.9 g/dL (6.3-8.2)
--- NOTE | 2016-08-01 16:33 | PDINTPN ---
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 I had advised bronchoscopy at a previous admission, but the patient declined and failed to show up for outpatient followup as directed. After re-admission, Dr. Garcia attempted bronch with conscious sedation, but she proved too difficult to sedate (tolerance). She also had evidence of a strangulated umbilical hernia which was repaired and allowed for bronch while intubated. However, results have been unrevealing, though AFB has been negative and there were no significant eosinophils (in periphery either). On imaging, the infiltrates have a "fleeting" nature, as do several nodules. She has been treated with steroids and nebs, as well as antibiotics and reports improvement. * Abnormal CT scan- I suspect chronic aspiration, of uncertain origin. Doubt her umbilical hernia played a role. In either case, her steroids have been tapered and she is now on 60 mg daily of prednisone, which I would drop to 40 after 3 days, then 30 x3, etc. She should also complete her antibiotics. I am not in favor of a lung biopsy at this time. * COPD- I am suspect of the diagnosis due to her relatively young age. Until she can perform outpatient PFTs, I would assume its accurate and continue therapy as above. * Hypoxemia- titrate as tolerated Objective: Vital Signs Temp Pulse Resp BP Pulse Ox 36.9 C 84 18 112/82 H 98 08/01/16 15:31 08/01/16 15:31 08/01/16 15:31 08/01/16 15:31 08/01/16 15:31 Microbiology 07/29/16 14:00 Gram Stain - Final Lung Bilateral - Bronchial Washings Laboratory Results 08/01/16 04:40 08/01/16 04:40 07/31/16 08/01/16 08/02/16 05:59 05:59 05:59 Intake Total 1700 1462 Output Total 3300 500 Balance -1600 962 Physical Exam - Physical Exam General Appearance: alert, no apparent distress, obese EENT: PERRL/EOMI Neck: supple Respiratory: lungs clear, decreased breath sounds Cardiac/Chest: regular rate, rhythm, No edema Abdomen: normal bowel sounds, non-tender, soft, No distended Skin: normal color, warm/dry Lymphatic: no adenopathy Extremities: No pedal edema Neuro/Psych: alert, normal mood/affect, oriented x 3 ICD10 Worksheet Patient Problems: Problems Problem Status Onset Hypoxia Acute Pneumonia Acute Sepsis Acute
[2016-08-01] MEDS: traMADol 50 MG TAB PO PRN (18:47)
[2016-08-01] MEDS: LORazepam 1 MG TAB PO PRN (20:38)
[2016-08-02] MEDS: hydrOXYzine HCL 50 MG TAB PO PRN (00:41)
[2016-08-02] MEDS: oxyCODONE IR 5 MG TAB PO PRN ×2 (02:02→05:46)
[2016-08-02] MEDS: IPRATROPIUM/ALBUTEROL 3 ML DEYVIAL IH SCH ×2 (05:12→10:00)
[2016-08-02 06:11] LABS: ANION GAP 5 mEq/L (8-16); CALCIUM 9.4 mg/dL (8.5-10.4); CARBON DIOXIDE 25 mEq/l (22-31); CHLORIDE 106 mEq/L (97-110); CREATININE 0.5 mg/dL (0.6-1.0); GLOMERULAR FILTRATION RATE > 60; GLUCOSE 132 mg/dL (70-100); POTASSIUM 4.4 mEq/L (3.5-5.2); SODIUM 136 mEq/L (134-144)
[2016-08-02] MEDS: METHOCARBAMOL 500 MG TAB PO SCH (08:28)
[2016-08-02] MEDS: PANTOPRAZOLE SODIUM 40 MG TAB PO SCH (08:29)
[2016-08-02] MEDS: predniSONE 20 MG TAB PO SCH (08:29)
[2016-08-02] MEDS: ENOXAPARIN 40 MG/0.4 ML SYR SC SCH (08:29)
[2016-08-02] MEDS: ERTAPENEM 1 GM in NS 100 ML IV SCH (08:29)
[2016-08-02 10:14] VITALS: BP 114/71
[2016-08-02 10:21] VITALS: PULSE 81; RESP 20; O2SAT 91
[2016-08-02 10:34] VITALS: TEMP 98.1
--- NOTE | 2016-08-02 11:59 | SOAPPROG ---
SOAP Progress Note Assessment/Plan: Assessment/Plan: 51 Y homeless female, COPD, PNA, elevated LFTs, now s/p repair of incarcerated periumbilical hernia. Doing well from surgery. Ileus resolved. NG out. Eating. +BMs. Dispo pending medical clearance. D/c info placed in d/c plan--F/u with Dr. Wei once d/c 'ed. S: awake, eating. no nausea. pain controlled. O: alert, nad ncat, mmm no wob abd soft, inc cdi, appropriately tender Seen with Dr. Cohen. 08/02/16 11:58 Objective: Vital Signs Temp Pulse Resp BP Pulse Ox 36.7 C 81 20 114/71 91 L 08/02/16 09:30 08/02/16 10:19 08/02/16 10:19 08/02/16 10:19 08/02/16 10:19 Microbiology 07/29/16 14:00 Mycobacterial Smear (RAFAT) - Final Lung Bilateral - Bronchial Washings 07/29/16 14:00 Gram Stain - Final Lung Bilateral - Bronchial Washings Laboratory Results 08/01/16 04:40 08/02/16 05:15 08/01/16 08/02/16 08/03/16 05:59 05:59 05:59 Intake Total 1462 400 Output Total 500 1 Balance 962 399 ICD10 Worksheet Patient Problems: Problems Problem Status Onset Hypoxia Acute Pneumonia Acute Sepsis Acute
--- NOTE | 2016-08-02 14:47 | GDS ---
[f rep st] DISCHARGE SUMMARY DIAGNOSES: 1. Recurrent pulmonary infiltrates, suspicion for recurrent aspiration. 2. Chronic obstructive pulmonary disease. 3. Acute respiratory failure, resolved. 4. Transaminitis of unclear etiology. Liver function tests are improving. Workup negative in the hospital. 5. Acute incarceration of periumbilical hernia, status post repair on 07/29/2016. 6. Homelessness. PROCEDURES DONE: 1. Abdominal and chest CT scan: Bilateral infiltrates noted and constipation on the abdominal CT s can. 2. Esophagram: Negative for aspiration. Moderate gastroesophageal reflux disease. 3. Bronchoscopy: Perioperatively during the umbilical hernia repair, with bronchoalveolar lavage d one. 4. Umbilical hernia repair by Dr. Ferdinand Wei. Will follow up as an outpatient. 5. Abdominal ultrasound: Mild hepatomegaly. CONSULTATIONS: Pulmonology, Infectious Disease, General Surgery. HOSPITAL COURSE: The patient is a 51-year-old initially admitted on 07/24/2016 with fever and short ness of breath. CT scan was done, which revealed bilateral infiltrates. She was admitted previousl y 3 months ago with similar findings and was treated with Tamiflu and Levaquin after influenza B cam e back. She did improve from that, and upon return to the hospital, it was opted to observe her off antibiotics. She was placed on steroids. They did a barium swallow, which ruled out aspiration an d underwent attempted bronchoscopy. She was unable to cooperate with the bronchoscopy, so she was m onitored in the hospital, and antibiotics were started after she was unable to proceed with bronchos copy. Because of this unclear etiology, it was felt that her symptoms were possibly inflammatory ve rsus COPD versus infection, so she was started on antibiotics, placed on nebulizers and steroids, an d she did slowly improve. However, she did have a significant cough and developed a strangulated um bilical hernia, requiring urgent surgery by Dr. Wei. This was done on 07/29/2016. Postopera tively, she was intubated and placed in the intensive care unit. She was able to be extubated, and over the course of the rest of her hospitalization, her respiratory status returned back to normal, and she did quite well. She did develop elevated liver enzymes throughout her hospitalization. Evaluation included hepatiti s serologies and ultrasound, both of which were fairly unremarkable. Her LFTs are slowly resolving at the time of discharge, but will need further followup as an outpatient. She does recall having e levated liver enzymes in the past, but cannot give me any details. They were normal previously in [facility]. At the time of discharge. It is felt her symptoms are most likely related to recurren t aspiration. She is responding to antibiotics and steroids and will continue that at the time of d ischarge. She does need to follow up with her primary care provider for re-evaluation of her lung f unction, possible consultation with Pulmonology and recheck of her LFTs. CONDITION ON DISCHARGE: Good. She is saturating at 96% on room air. Heart rate 81, blood pressure 114/71. She is alert and oriented. Her lungs have occasional crackles, but otherwise clear with d iminished breath sounds. She is alert and oriented. DISCHARGE MEDICATIONS: Please see discharge medication form. She will take 7 more days of Augmenti n and will start a prednisone taper. FOLLOWUP: She should schedule followup with her primary care provider next week. She needs to make sure that she has a scheduled appointment with Pulmonology, and she also needs to have her liver en zymes rechecked. She should also follow up with Dr. Wei in 1-2 weeks. Total time spent with patient on day of discharge and coordination of care is 35 minutes. /[id number]/MODL
== END 2016-08-02 15:24 | disposition home or self-care (01) | DRG 166 ==
LOC: EDUNIT# → OBSVTOIN 21:39 → F3E 22:20 → F2N 07-29 11:22 → F1N 07-31 18:02
PROVIDERS: ADMIT Hospitalist; ATTEND Internal Medicine
PROC: 5A1935Z Respiratory Ventilation, Less than 24 Consecutive Hours (ICD-10-PCS; 2009-07-29)
PROC: 0B9F8ZX Drainage of Right Lower Lung Lobe, Via Natural or Artificial Opening Endoscopic, Diagnostic (ICD-10-PCS; principal; 2016-07-29)
PROC: 0B9J8ZX Drainage of Left Lower Lung Lobe, Via Natural or Artificial Opening Endoscopic, Diagnostic (ICD-10-PCS; principal; 2016-07-29)
PROC: 0WQF0ZZ Repair Abdominal Wall, Open Approach (ICD-10-PCS; 2016-07-29)
DX: R91.8 Other nonspecific abnormal finding of lung field (principal); J95.821 Acute postprocedural respiratory failure; J44.1 Chronic obstructive pulmonary disease with (acute) exacerbation; K42.0 Umbilical hernia with obstruction, without gangrene; R74.0 Nonspecific elevation of levels of transaminase and lactic acid dehydrogenase [LDH]; F17.210 Nicotine dependence, cigarettes, uncomplicated; Z59.0 Homelessness
CPT/HCPCS: 80307; 82164-90; 83516-90; 83520-90; 86635-90; 96365; 97116-GP; 97162-GP; 97164-GP; 97165-GO; 97168-GO; 97535-GO; G0472; G0480; J0171; J0456; J0690; J0696; J1335; J1650; J2060; J2250; J2704; J3010; P9041; Q9967

== ENCOUNTER 2016-08-16 20:55 | Emergency (ER) | payer MEDICAID ==
[2016-08-16 21:03] VITALS: TEMP 98.1
--- NOTE | 2016-08-16 21:13 | CPEKG ---
Heart Rate: 99 RR Interval: 606 P-R Interval: 168 QRSD Interval: 90 QT Interval: 344 QTC Interval: 442 P [place]: 28 QRS [place]: -80 T Wave [place]: 45 EKG Severity - ABNORMAL ECG - EKG Impression: SINUS RHYTHM EKG Impression: PROBABLE INFERIOR INFARCT, OLD EKG Impression: ANTERIOR INFARCT, AGE INDETERMINATE Electronically Signed By: Nahum Lane 18-Aug-2016 09:49:50
[2016-08-16 21:35] LABS: % IMMATURE GRANULYOCYTES 0.3 % (0.0-1.1); ABSOLUTE IMMATURE GRANULOCYTES 0.04 10^3/uL (0.00-0.10); ADD DIFF? NO; ADD MORPH? NO; ADD SCAN? NO; ATYPICAL LYMPHOCYTE FLAG 10 (0-99); FRAGMENT RBC FLAG 20 (0-99); HEMATOCRIT 37.3 % (38.0-47.0); HEMOGLOBIN 12.2 g/dL (12.6-16.3); LEFT SHIFT FLG 0 (0-99); LIPEMIA HEMOLYSIS FLAG 80 (0-99); MEAN CELL HEMOGLOBIN 28.6 pg (27.9-34.1); MEAN CELL HEMOGLOBIN CONCENTR. 32.7 g/dL (32.4-36.7); MEAN CELL VOLUME 87.6 fL (81.5-99.8); MEAN PLATELET VOLUME 10.2 fL (8.7-11.7); PLATELET CLUMPS FLAG 20 (0-99); PLATELET COUNT 432 10^3/uL (150-400); RED BLOOD CELL COUNT 4.26 10^6/uL (4.18-5.33); RED CELL DISTRIBUTION WIDTH 15.8 % (11.5-15.2)
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
[2016-08-16 21:53] LABS: ANION GAP 14 mEq/L (8-16); CALCIUM 9.5 mg/dL (8.5-10.4); CARBON DIOXIDE 17 mEq/l (22-31); CHLORIDE 109 mEq/L (97-110); CREATININE 0.7 mg/dL (0.6-1.0); GLOMERULAR FILTRATION RATE > 60; GLUCOSE 91 mg/dL (70-100); POTASSIUM 3.9 mEq/L (3.5-5.2); SODIUM 140 mEq/L (134-144)
[2016-08-16 22:04] LABS: TROPONIN I < 0.012 ng/mL (0-0.034)
[2016-08-16 23:58] VITALS: BP 123/87; PULSE 95; RESP 16; O2SAT 97
== END 2016-08-16 23:57 | disposition home or self-care (01) ==
DX: R07.9 Chest pain, unspecified (principal); J44.9 Chronic obstructive pulmonary disease, unspecified; F17.200 Nicotine dependence, unspecified, uncomplicated

== ENCOUNTER 2016-09-19 23:35 | Emergency (ER) | payer MEDICAID ==
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
[2016-09-19] MEDS ORDERED: NS 1,000 ML IV ONE (23:43)
[2016-09-19] MEDS ORDERED: IBUPROFEN 200 MG TAB PO ONE (23:44)
[2016-09-19 23:50] VITALS: RESP 16; O2SAT 96
[2016-09-20] MEDS ORDERED: ONDANSETRON DISINTEGRATING 4 MG TAB PO ONE (00:18)
[2016-09-20 01:04] VITALS: BP 131/61; PULSE 67; TEMP 97.9
== END 2016-09-20 01:03 | disposition home or self-care (01) ==
LOC: EDUNIT# → EEVIPCON 23:35
DX: S09.90XA Unspecified injury of head, initial encounter (principal); E86.9 Volume depletion, unspecified; J44.9 Chronic obstructive pulmonary disease, unspecified; F17.200 Nicotine dependence, unspecified, uncomplicated; Y04.8XXA Assault by other bodily force, initial encounter; Y92.89 Other specified places as the place of occurrence of the external cause; Y99.8 Other external cause status; Y93.89 Activity, other specified

== ENCOUNTER 2016-09-26 09:44 | Emergency (ER) | payer MEDICAID ==
[2016-09-26 09:52] VITALS: BP 125/87; PULSE 86; RESP 18; TEMP 99.1; O2SAT 94
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
[2016-09-26 10:29] LABS: % IMMATURE GRANULYOCYTES 0.4 % (0.0-1.1); ABSOLUTE IMMATURE GRANULOCYTES 0.03 10^3/uL (0.00-0.10); ADD DIFF? NO; ADD MORPH? NO; ADD SCAN? NO; ATYPICAL LYMPHOCYTE FLAG 30 (0-99); FRAGMENT RBC FLAG 0 (0-99); HEMATOCRIT 39.6 % (38.0-47.0); HEMOGLOBIN 12.7 g/dL (12.6-16.3); LEFT SHIFT FLG 0 (0-99); LIPEMIA HEMOLYSIS FLAG 80 (0-99); MEAN CELL HEMOGLOBIN 27.7 pg (27.9-34.1); MEAN CELL HEMOGLOBIN CONCENTR. 32.1 g/dL (32.4-36.7); MEAN CELL VOLUME 86.3 fL (81.5-99.8); MEAN PLATELET VOLUME 10.6 fL (8.7-11.7); PLATELET CLUMPS FLAG 0 (0-99); PLATELET COUNT 287 10^3/uL (150-400); RED BLOOD CELL COUNT 4.59 10^6/uL (4.18-5.33); RED CELL DISTRIBUTION WIDTH 14.2 % (11.5-15.2)
[2016-09-26] MEDS: PANTOPRAZOLE SODIUM 40 MG in NS 100 ML IV ONE (10:33)
[2016-09-26] MEDS: NS 1,000 ML IV ONE (10:33)
[2016-09-26] MEDS: ONDANSETRON 4 MG/2 ML VIAL IVP ONE (10:33)
[2016-09-26 10:47] LABS: ALANINE AMINOTRANSFERASE 33 IU/L (9-52); ALKALINE PHOSPHATASE 84 IU/L (38-126); ANION GAP 11 mEq/L (8-16); ASPARTATE AMINOTRANSFERASE 28 IU/L (14-46); BILIRUBIN,TOTAL 0.4 mg/dL (0.1-1.4); BILIRUBIN-CONJUGATED 0.2 mg/dL (0.0-0.5); BILIRUBIN-UNCONJUGATED 0.2 mg/dL (0.0-1.1); CALCIUM 10.1 mg/dL (8.5-10.4); CARBON DIOXIDE 24 mEq/l (22-31); CHLORIDE 107 mEq/L (97-110); CREATININE 0.7 mg/dL (0.6-1.0); GLOMERULAR FILTRATION RATE > 60; GLUCOSE 89 mg/dL (70-100); POTASSIUM 3.9 mEq/L (3.5-5.2); SODIUM 142 mEq/L (134-144); TOTAL PROTEIN 7.9 g/dL (6.3-8.2)
== END 2016-09-26 11:56 | disposition left against medical advice (07) ==
DX: R11.2 Nausea with vomiting, unspecified (principal); J44.9 Chronic obstructive pulmonary disease, unspecified; F17.200 Nicotine dependence, unspecified, uncomplicated
CPT/HCPCS: 96374; J2405

== ENCOUNTER 2016-12-22 11:48 | Emergency (ER) | payer MEDICAID ==
[2016-12-22 11:56] VITALS: TEMP 98.6
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
[2016-12-22] MEDS ORDERED: IBUPROFEN 200 MG TAB PO ONE ×2 (13:31)
[2016-12-22] MEDS ORDERED: HYDROCODONE/APAP 5/325 TAB PO ONE ×4 (13:31→14:28)
[2016-12-22] MEDS ORDERED: SKIN ADHESIVE (DERMABOND) 1 EACH TP ONE ×2 (13:40)
[2016-12-22 14:56] VITALS: BP 109/85; PULSE 84; RESP 16; O2SAT 94
== END 2016-12-22 15:01 | disposition home or self-care (01) ==
LOC: EDUNIT#
PROC: 0HQ1XZZ Repair Face Skin, External Approach (ICD-10-PCS; principal; 2016-12-22)
DX: S01.81XA Laceration without foreign body of other part of head, initial encounter (principal); J44.9 Chronic obstructive pulmonary disease, unspecified; F17.200 Nicotine dependence, unspecified, uncomplicated; W22.8XXA Striking against or struck by other objects, initial encounter; Y92.241 Library as the place of occurrence of the external cause; Y99.8 Other external cause status; Y93.01 Activity, walking, marching and hiking

== ENCOUNTER 2016-12-26 12:25 | Emergency (ER) | payer MEDICAID ==
[2016-12-26 12:35] VITALS: RESP 18
[2016-12-26] MEDS ORDERED: IBUPROFEN 600 MG TAB PO ONE (13:24)
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
[2016-12-26 13:59] VITALS: BP 115/85; PULSE 92; TEMP 98.1; O2SAT 97
== END 2016-12-26 14:03 | disposition home or self-care (01) ==
DX: S62.337A Displaced fracture of neck of fifth metacarpal bone, left hand, initial encounter for closed fracture (principal); J44.9 Chronic obstructive pulmonary disease, unspecified; F17.200 Nicotine dependence, unspecified, uncomplicated; Y09 Assault by unspecified means

== ENCOUNTER 2017-03-26 14:47 | Emergency (ER) | payer MEDICAID ==
[2017-03-26 14:58] VITALS: TEMP 98.6
[2017-03-26] MEDS ORDERED: ALBUTEROL INH PREPACK MDI TAKEHOME ONE (15:53)
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
[2017-03-26 16:20] VITALS: BP 123/81; PULSE 99; RESP 18; O2SAT 94
--- NOTE | 2017-03-27 10:50 | CPEKG ---
Heart Rate: 131 RR Interval: 458 QRSD Interval: 144 QT Interval: 372 QTC Interval: 550 QRS [place]: -54 T Wave [place]: 132 EKG Severity - ABNORMAL ECG - EKG Impression: ATRIAL FIBRILLATION EKG Impression: LEFT BUNDLE BRANCH BLOCK Electronically Signed By: Lucila Burgess 28-Mar-2017 06:04:36
== END 2017-03-26 16:19 | disposition home or self-care (01) ==
LOC: EDUNIT#
DX: J45.901 Unspecified asthma with (acute) exacerbation (principal); F17.200 Nicotine dependence, unspecified, uncomplicated

== ENCOUNTER 2017-03-26 20:52 | Inpatient (IN) | payer MEDICAID ==
[2017-03-26] MEDS ORDERED: IPRATROPIUM/ALBUTEROL 3 ML DEYVIAL IH ONE (20:59)
[2017-03-26] MEDS ORDERED: clonazePAM 0.5 MG TAB PO ONE (20:59)
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
[2017-03-26] MEDS ORDERED: predniSONE 20 MG TAB PO ONE (21:30)
[2017-03-26 22:43] LABS: PLATELET COUNT 321 10^3/uL (150-400)
[2017-03-26] MEDS ORDERED: NS 1,900 ML IV ONE (22:54)
--- NOTE | 2017-03-26 23:09 | CPEKG ---
Heart Rate: 107 RR Interval: 561 P-R Interval: 164 QRSD Interval: 104 QT Interval: 356 QTC Interval: 475 P [place]: 15 QRS [place]: 254 T Wave [place]: -11 EKG Severity - ABNORMAL ECG - EKG Impression: SINUS TACHYCARDIA EKG Impression: LAD, CONSIDER LEFT ANTERIOR FASCICULAR BLOCK EKG Impression: BORDERLINE R WAVE PROGRESSION, ANTERIOR LEADS EKG Impression: BORDERLINE T ABNORMALITIES, INFERIOR LEADS Electronically Signed By: Violeta Mathur 27-Mar-2017 15:49:12
[2017-03-26] MEDS ORDERED: ALBUTEROL 3 ML DEYVIAL IH PRN (23:10)
[2017-03-26] MEDS ORDERED: ACETAMINOPHEN 325 MG TAB PO PRN (23:10)
[2017-03-26] MEDS ORDERED: ONDANSETRON 4 MG/2 ML VIAL IVP PRN (23:10)
[2017-03-26] MEDS ORDERED: IPRATROPIUM/ALBUTEROL 3 ML DEYVIAL IH PRN (23:54)
[2017-03-26] MEDS ORDERED: LORazepam 0.5 MG TAB PO ONE (23:56)
--- NOTE | 2017-03-27 00:14 | PDGENHP ---
History and Physical - Chief Complaint Shortness of breath - History of Present Illness 51 yo F w/ COPD presents with shortness of breath. Patient reports 2 days of runny nose and sore throat followed by cough, shortness of breath, and subjective fevers. She has a history of COPD but lost her nebulizer and scheduled Duonebs. She has been using PRN albuterol but ran out a few days ago. She still smokes a few cigarettes daily. Upon arrival to the ED she was noted to be in mild respiratory distress with wheezing and bilateral infiltrates on CXR. She is being admitted for mild COPD exacerbation. History Information - Allergies/Home Medication List Allergies/Adverse Reactions: droperidol [From Inapsine] Allergy (Severe, Verified 12/26/16 12:31) SEIZURES haloperidol [From Haldol] Allergy (Severe, Verified 12/26/16 12:31) SEIZURES Home Medications: traMADol [Ultram 50 mg (*)] 50 mg PO 09/26/16 [Last Taken Unknown] ALBUTEROL SULFATE 12/22/16 [Last Taken Unknown] Ranitidine HCl 12/22/16 [Last Taken Unknown] Duoneb (*) 03/26/17 [Last Taken Unknown] Flexeril 03/26/17 [Last Taken Unknown] Klonopin 03/26/17 [Last Taken Unknown] I have personally reviewed and updated: family history, medical history - Past Medical History Additional medical history: COPD. GERD/hiatal hernia. 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 anxiety disorder - Surgical History Reports: cholecystectomy Additional surgical history: partial hysterectomy. cholecystectomy. lipoma resection - Family History Positive for: non-pertinent Additional family history: mom had dementia. dad had emphysema - Social History Smoking Status: Current every day smoker Additional social history: Patient is originally from [place], left there in February and has been homeless/travelling since that time. She has remained in the [place] area since end of Feb/early March, now resides in [place] [facility]. She reports having siblings and children in the [place] area. Review of Systems Review of Systems: ROS: 10pt was reviewed & negative except for what was stated in HPI & below Physical Exam Physical Exam: Temp Pulse Resp BP Pulse Ox 37.1 C 103 H 18 116/94 H 95 03/26/17 22:00 03/26/17 23:55 03/26/17 23:55 03/26/17 23:55 03/26/17 23:55 Constitutional: no apparent distress, appears nourished Eyes: PERRL, EOMI Ears, Nose, Mouth, Throat: moist mucous membranes, no oral mucosal ulcers Cardiovascular: regular rate and rhythym, no murmur, rub, or gallop, JVD (JVP visible at clavicle at 30 degrees) Respiratory: no respiratory distress, expiratory wheeze (Mild, diffuse), rhonchi (Bilateral) Gastrointestinal: normoactive bowel sounds, soft, non-tender abdomen Skin: warm, normal color Musculoskeletal: full muscle strength, no muscle tenderness Neurologic: AAOx3, CN II-XII Intact Psychiatric: interacting appropriately, anxious Lab Data & Imaging Review 03/26/17 22:30 03/26/17 22:00 WBC 14.55 10^3/uL (3.80-9.50) H 03/26/17 22:30 RBC 3.93 10^6/uL (4.18-5.33) L 03/26/17 22:30 Hgb 11.5 g/dL (12.6-16.3) L 03/26/17 22:30 Hct 34.6 % (38.0-47.0) L 03/26/17 22:30 MCV 88.0 fL (81.5-99.8) 03/26/17 22:30 MCH 29.3 pg (27.9-34.1) 03/26/17 22:30 MCHC 33.2 g/dL (32.4-36.7) 03/26/17 22:30 RDW 15.0 % (11.5-15.2) 03/26/17 22:30 Plt Count 321 10^3/uL (150-400) 03/26/17 22:30 MPV 10.0 fL (8.7-11.7) 03/26/17 22:30 Neut % (Auto) 84.8 % (39.3-74.2) H 03/26/17 22:30 Lymph % (Auto) 11.7 % (15.0-45.0) L 03/26/17 22:30 [place] % (Auto) 2.9 % (4.5-13.0) L 03/26/17 22:30 Eos % (Auto) 0.1 % (0.6-7.6) L 03/26/17 22:30 Baso % (Auto) 0.2 % (0.3-1.7) L 03/26/17 22:30 Nucleat RBC Rel Count 0.0 % (0.0-0.2) 03/26/17 22:30 Absolute Neuts (auto) 12.35 10^3/uL (1.70-6.50) H 03/26/17 22:30 Absolute Lymphs (auto) 1.70 10^3/uL (1.00-3.00) 03/26/17 22:30 Absolute Monos (auto) 0.42 10^3/uL (0.30-0.80) 03/26/17 22:30 Absolute Eos (auto) 0.01 10^3/uL (0.03-0.40) L 03/26/17 22:30 Absolute Basos (auto) 0.03 10^3/uL (0.02-0.10) 03/26/17 22:30 Absolute Nucleated RBC 0.00 10^3/uL (0-0.01) 03/26/17 22:30 Immature Gran % 0.3 % (0.0-1.1) 03/26/17 22:30 Immature Gran # 0.04 10^3/uL (0.00-0.10) 03/26/17 22:30 VBG Lactic Acid 1.1 mmol/L (0.7-2.1) D 03/27/17 00:05 Sodium 142 mEq/L (135-145) 03/26/17 22:00 Potassium 4.0 mEq/L (3.5-5.2) 03/26/17 22:00 Chloride 103 mEq/L (97-110) 03/26/17 22:00 Carbon Dioxide 24 mEq/l (22-31) 03/26/17 22:00 Anion Gap 15 mEq/L (8-16) 03/26/17 22:00 BUN 12 mg/dL (7-23) 03/26/17 22:00 Creatinine 0.5 mg/dL (0.6-1.0) L 03/26/17 22:00 Estimated GFR > 60 03/26/17 22:00 Glucose 112 mg/dL (70-100) H 03/26/17 22:00 Calcium 9.1 mg/dL (8.5-10.4) 03/26/17 22:00 Troponin I 0.013 ng/mL (0.000-0.034) 03/26/17 22:00 NT-Pro-B Natriuret Pep 4300 pg/mL (0-125) H 03/26/17 22:00 Procalcitonin 0.06 ng/mL (0.02-0.10) 03/26/17 22:00 Imaging Review: Imaging Impressions Chest X-Ray 03/26/17 20:59 Impression: Bilateral diffuse airspace consolidation. Differential diagnosis includes viral pneumonitis with interstitial edema, bronchopneumonia, and noninfectious pneumonitis potentially from drug reaction or cryptogenic organizing pneumonia. Visualized and Interpreted EKG results: Yes EKG Interpretation: Positive for: normal sinsus rhythm, T waves inversion ( Inferior leads) Assessment & Plan Assessment: 51 yo F w/ COPD presents with mild exacerbation likely from viral etiology. Plan: 1. COPD with acute exacerbation - I suspect viral etiology noting hx of URI symptoms in combination with running out of medications and continued tobacco use. Overall this appears mild as she is currently saturating well on room air. Procalcitonin negative. - Duonebs QID, albuterol PRN - Prednisone 40 mg qD, azithromycin for 5 days - Counseled tobacco cessation - Respiratory PCR 2. Bilateral pulmonary infiltrates - Most likely viral pneumonitis. Diastolic CHF is a consideration noting elevated BNP and untreated respiratory disease but she had a similar presentation in March of 2016 and had a normal TTE at that time. She appears fairly euvolemic on exam. - Will defer repeat TTE for now and treat acute exacerbation as above - If dyspnea persists despite COPD treatment, consider TTE but likely amenable to outpatient work-up 3. Anxiety - This seems poorly controlled and patient takes Clonazepam BID for this. She would likely benefit from an SSRI. Diet - Regular Code - Full Ppx - LMWH Dispo - Admit to observation status
[2017-03-27 05:46] LABS: PLATELET COUNT 377 10^3/uL (150-400)
[2017-03-27] MEDS: ENOXAPARIN 40 MG/0.4 ML SYR SC SCH (08:51)
[2017-03-27] MEDS: predniSONE 20 MG TAB PO SCH (08:51)
--- NOTE | 2017-03-27 08:51 | HOSPPROG ---
Hospitalist Progress Note Assessment/Plan: Patient is a 51-year-old female with underlying COPD. She presented the emergency room with shortness of breath. Today is my 1st encounter with the patient. Chart reviewed. * upper respiratory infection, viral PCR is positive for coronavirus Chest x-ray shows bilateral pulmonary infiltrates most likely a viral pneumonitis * COPD with acute exacerbation Prednisone and azithromycin * nicotine dependence Cessation recommended * anxiety She is on clonazepam twice daily. She may benefit from an antidepressant *homelessness [facility], will discuss w CM Diet - Regular Code - Full Ppx - LMWH Dispo -patient feeling poorly and not well enough for dc, will require another midnight stay making her IP Subjective: Pat is feeling poorly. Objective: Vital Signs Temp Pulse Resp BP Pulse Ox 36.5 C 94 20 107/70 95 03/27/17 07:56 03/27/17 07:56 03/27/17 07:56 03/27/17 07:56 03/27/17 07:56 Laboratory Results 03/27/17 05:15 03/27/17 05:15 03/26/17 03/27/17 03/28/17 05:59 05:59 05:59 Intake Total 400 Balance 400 - Physical Exam Constitutional: chronically ill appearing, uncomfortable Eyes: PERRL Ears, Nose, Mouth, Throat: hearing normal Cardiovascular: regular rate and rhythym Respiratory: no respiratory distress Gastrointestinal: normoactive bowel sounds Skin: warm Musculoskeletal: full muscle strength Neurologic: AAOx3 Psychiatric: interacting appropriately ICD10 Worksheet Patient Problems: Problems Problem Status Onset Acute congestive heart failure Acute Bilateral pneumonia Acute COPD (chronic obstructive pulmonary disease) Acute Boxers fracture Acute Facial contusion Acute Facial laceration Acute Headache Acute Hypoxia Acute Pneumonia Acute Sepsis Acute
[2017-03-27] MEDS ORDERED: AZITHROMYCIN 250 MG TAB PO ONE (09:00)
[2017-03-27] MEDS ORDERED: ALBUTEROL 60 PUFFS/8 GM MDI IH PRN (10:38)
[2017-03-27] MEDS ORDERED: IBUPROFEN 600 MG TAB PO PRN (10:38)
[2017-03-27] MEDS: clonazePAM 0.5 MG TAB PO SCH ×2 (11:40→20:16)
--- NOTE | 2017-03-27 11:40 | ASMTCASEMG ---
Living Arrangements What is your living Answers: Alone arrangement? Who do you live with? Type Of Residence What kind of residence do Answers: Homeless you live in? Discharge Plan Comments Coordination Status Comments Notes: Pt is a 51 y/o female admitted for shortness of breath. Pt is homeless and residing at the [facility]. Pt is originally from [place]. OT has been ordered and awaiting recommendations. Needs are TBD at this time. CM to follow. Plan: TBD Date Signed: 03/27/2017 11:39 AM Electronically Signed By:ERNESTINE Moses
[2017-03-27] MEDS: traMADol 50 MG TAB PO PRN (13:50)
[2017-03-27] MEDS: ONDANSETRON DISINTEGRATING 4 MG TAB PO PRN (13:50)
--- NOTE | 2017-03-27 16:00 | PDMN ---
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
[2017-03-27] MEDS: FAMOTIDINE 20 MG TAB PO SCH (20:16)
[2017-03-27] MEDS ORDERED: CYCLOBENZAPRINE 10 MG TAB PO SCH (21:00)
[2017-03-27] MEDS ORDERED: RANITIDINE HCL 150 MG PO SCH (21:00)
[2017-03-27 23:54] VITALS: O2SAT 91
[2017-03-28] MEDS: traMADol 50 MG TAB PO PRN (03:44)
[2017-03-28 07:07] VITALS: BP 122/68; PULSE 64; RESP 16; TEMP 98.4
[2017-03-28] MEDS ORDERED: SUMAtriptan 25 MG TAB PO ONE (08:59)
[2017-03-28] MEDS ORDERED: AZITHROMYCIN 250 MG TAB PO SCH (09:00)
--- NOTE | 2017-03-28 09:03 | HOSPPROG ---
Hospitalist Progress Note Assessment/Plan: Patient is a 51-year-old female with underlying COPD. She presented the emergency room with shortness of breath. Today is my 1st encounter with the patient. Chart reviewed. * upper respiratory infection, viral PCR is positive for coronavirus Chest x-ray shows bilateral pulmonary infiltrates most likely a viral pneumonitis * COPD with acute exacerbation Prednisone and azithromycin *headache usually resolves w Imitrex will hold tramadol this morning due to increasing seizure threshold w the combination of these meds * nicotine dependence Cessation recommended * anxiety She is on clonazepam twice daily. She may benefit from an antidepressant *homelessness [facility], will discuss w CM Diet - Regular Code - Full Ppx - LMWH Dispo -dc later after headache resolves Subjective: Pat is c/o headache, she gets these at times and resolves w imitrex. Objective: Vital Signs Temp Pulse Resp BP Pulse Ox 36.9 C 64 16 122/68 H 91 L 03/28/17 07:06 03/28/17 07:06 03/28/17 07:06 03/28/17 07:06 03/28/17 07:06 03/27/17 03/28/17 03/29/17 05:59 05:59 05:59 Intake Total 980 Balance 980 - Physical Exam Constitutional: uncomfortable, No not in pain Eyes: PERRL Ears, Nose, Mouth, Throat: hearing normal Cardiovascular: regular rate and rhythym Respiratory: no respiratory distress, reduced air movement (bases but otherwise clear) Skin: warm Musculoskeletal: full muscle strength Neurologic: AAOx3 Psychiatric: interacting appropriately, not anxious ICD10 Worksheet Patient Problems: Problems Problem Status Onset Acute congestive heart failure Acute Bilateral pneumonia Acute COPD (chronic obstructive pulmonary disease) Acute Boxers fracture Acute Facial contusion Acute Facial laceration Acute Headache Acute Hypoxia Acute Pneumonia Acute Sepsis Acute
[2017-03-28] MEDS: clonazePAM 0.5 MG TAB PO SCH (09:49)
[2017-03-28] MEDS: ONDANSETRON DISINTEGRATING 4 MG TAB PO PRN (09:50)
[2017-03-28] MEDS: ENOXAPARIN 40 MG/0.4 ML SYR SC SCH (09:50)
[2017-03-28] MEDS: predniSONE 20 MG TAB PO SCH (09:50)
[2017-03-28] MEDS: FAMOTIDINE 20 MG TAB PO SCH (09:50)
--- NOTE | 2017-03-28 11:26 | GDS ---
[f rep st] DISCHARGE SUMMARY DISCHARGE DIAGNOSES: 1. Upper respiratory viral infection. 2. Chronic obstructive pulmonary disease with acute exacerbation. 3. Headache. 4. Nicotine dependence. 5. Anxiety. 6. Homelessness. HISTORY OF PRESENT ILLNESS: Briefly, the patient is a 51-year-old female with underlying COPD. She presented to the ER with shortness of breath. She had a PCR respiratory panel performed, which showe d coronavirus. She is stable and will be discharged. The disease case manager has arranged for a bed for he r at the assisted. HOSPITAL COURSE BY PROBLEM: 1. Upper respiratory infection. This is viral. Her chest x-ray shows bilateral pulmonary infiltrat es, most likely viral pneumonitis. Her PCR is positive for coronavirus at this time. Supportive car e. 2. COPD with acute exacerbation. Will continue her on a short burst of prednisone and azithromycin. 3. Headache. She says she takes Imitrex, which usually resolves it. 4. Nicotine dependence. Cessation has been highly recommended. 5. Anxiety. She is on clonazepam twice daily. She may benefit from an antidepressant. 6. Homelessness. Bed at the assisted has been arranged for her. DISCHARGE CONDITION: Stable. Blood pressure is 122/68. Heart rate is 64. Respiratory rate is 16, O2 sats on room air 91%. Temperature is 36.9 Celsius. MEDICATIONS AT DISCHARGE: Please see the EMR. DISCHARGE INSTRUCTIONS: 1. To continue the prednisone as instructed. 2. To follow up with her primary care provider to see if the antidepressant may help with her anxiet y. Greater than 30 minutes discharging and coordinating patient's care. /[id number]/MODL
--- NOTE | 2017-03-28 12:22 | ASDISCHSUM ---
Discharge Information Plan Status:Homeless/Halfway Medically Cleared to Leave:03/27/2017 Discharge Date:03/28/2017 12:12 PM CM D/C Disposition: ADT D/C Disposition:Home, Routine, Self-Care Projected Discharge Date:03/28/2017 12:00 AM Transportation at D/C: Discharge Delay Reason: Follow-Up Date:03/28/2017 12:00 AM Discharge Slot: Final Diagnosis: Placement Information Patient Contact Information Contact Name:JANAGABBIE Relationship:Abisai Address: Work Phone: City: [facility] Phone: State[place] Code: Email: Financial Information Financial Class: Primary Plan Desc:[employer] [place] [place] Primary Plan Number:[id number] Secondary Plan Desc: Secondary Plan Number: Assessment Information [facility] Initial CM Assessment Living Arrangements What is your living Answers: Alone arrangement? Who do you live with? Type Of Residence What kind of residence do Answers: Homeless you live in? Discharge Plan Comments Coordination Status Comments Notes: Pt is a 51 y/o female admitted for shortness of breath. Pt is homeless and residing at the [facility]. Pt is originally from [place]. OT has been ordered and awaiting recommendations. Needs are TBD at this time. CM to follow. Plan: TBD Date Signed: 03/27/2017 11:39 AM Electronically Signed By:ERNESTINE Moses Case Management Discharge Plan Note Case Management Discharge Discharge Order Complete? Answers: Yes Patient to Obtain Answers: Independently Medications Transportation Arranged Answers: Other Notes: Bus voucher provided EMTALA Complete Answers: No Case Management Transport Answers: No Form Complete Faxed Final Orders Answers: No Agency/Facility Transfer Answers: No Report Printed & Faxed to Receiving Agency Family Notified Answers: No Discharge Comments Notes: CM spoke w/ SPEEDY Duarte and Jing Garzon NP regarding d/c POC. CM met w/ pt for dispo planning. Pt is being discharged today. CM reserved a retirement bed. CM provided pt w/ a bus voucher. Pt does not have any needs at this time. CM available for changes. Plan: Independent Date Signed: 03/28/2017 10:14 AM Electronically Signed By:ERNESTINE Moses Intervention Information
== END 2017-03-28 12:12 | disposition home or self-care (01) | DRG 190 ==
LOC: EDUNIT# → F3E 03-27 00:30 → OBSVTOIN 03-27 11:16
PROVIDERS: ADMIT Student in an Organized Health Care Education/Training Program; ATTEND Student in an Organized Health Care Education/Training Program
DX: J44.1 Chronic obstructive pulmonary disease with (acute) exacerbation (principal); J12.89 Other viral pneumonia; B97.29 Other coronavirus as the cause of diseases classified elsewhere; R51 Headache; F17.210 Nicotine dependence, cigarettes, uncomplicated; F41.9 Anxiety disorder, unspecified; Z59.0 Homelessness
CPT/HCPCS: 96365; 97165-GO; J1650; J1956; J7512

== ENCOUNTER 2017-05-14 05:54 | Emergency (ER) | payer MEDICAID ==
[2017-05-14] MEDS ORDERED: HYOSCYAMINE SULFATE 0.125 MG TAB PO ONE (05:58)
[2017-05-14] MEDS ORDERED: LIDOCAINE 2% VISCOUS 15 ML UDCUP PO ONE (05:58)
[2017-05-14] MEDS ORDERED: ONDANSETRON 4 MG/2 ML VIAL IVP ONE ×2 (05:58→08:24)
[2017-05-14] MEDS ORDERED: NS 1,000 ML IV ONE (05:58)
[2017-05-14] MEDS ORDERED: MAG HYDROX/AL HYDROX/SIMETH 30 ML UDCUP PO ONE (05:58)
[2017-05-14 06:00] VITALS: RESP 16
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
[2017-05-14 06:18] LABS: PLATELET COUNT 331 10^3/uL (150-400)
[2017-05-14] MEDS ORDERED: DICYCLOMINE 10 MG CAP PO ONE (06:51)
[2017-05-14 09:27] VITALS: BP 113/85; PULSE 79; TEMP 98.1; O2SAT 93
== END 2017-05-14 09:27 | disposition home or self-care (01) ==
LOC: EDUNIT#
DX: R11.10 Vomiting, unspecified (principal); R19.7 Diarrhea, unspecified; J44.9 Chronic obstructive pulmonary disease, unspecified; E86.9 Volume depletion, unspecified; F17.200 Nicotine dependence, unspecified, uncomplicated
CPT/HCPCS: 96374; J2405